=== PATIENT | male | born 1970 | race Caucasian/White ===

== ENCOUNTER 2023-02-06 09:41 | Outpatient (OUT) | payer MEDICARE, MEDICAID, SELFPAY ==
[2023-02-06 14:42] LABS: Basophils Absolute Auto 0.1 10^3/uL (0.0-0.1); Basophils Percent Auto 0.5 % (0.2-2.0); Eosinophils Absolute Auto 0.3 10^3/uL (0.0-0.7); Eosinophils Percent Auto 1.5 % (0.9-7.0); Hemoglobin 14.9 g/dL (14.0-18.0); Immature Granulocytes Abs Auto 0.07 10^3/uL (0.00-0.03); Immature Granulocytes Pct Auto 0.4 % (0.0-0.5); Lymphocytes Absolute Auto 3.4 10^3/uL (1.2-3.8); Lymphocytes Percent Auto 19.9 % (20.5-60.0); Mean Corpuscular HGB Conc 33.1 g/dL (29.9-35.2); Mean Corpuscular Hemoglobin 31.8 pg (25.9-34.0); Mean Corpuscular Volume 96.2 fL (80.0-94.0); Mean Platelet Volume 10.4 fL (9.5-13.5); Monocytes Absolute Auto 1.1 10^3/uL (0.3-0.8); Monocytes Percent Auto 6.5 % (1.7-12.0); Neutrophils Absolute Auto 12.3 10^3/uL (1.4-6.5); Neutrophils Percent Auto 71.2 % (43.0-75.0); Platelet Count 239 10^3/uL (150-450); Red Blood Count 4.68 10^6/uL (4.70-6.10); White Blood Count 17.3 10^3/uL (4.0-11.0)
[2023-02-06 15:00] LABS: Estimated Average Glucose 120 mg/dL; Glycohemoglobin A1C 5.8 % (4.5-6.2)
[2023-02-06 15:24] LABS: Anion Gap 9.9; BUN Creatinine Ratio 8.4; Calcium 9.4 mg/dL (8.5-10.1); Carbon Dioxide 28.1 mmol/L (21.0-32.0); Chloride 102 mmol/L (98-107); Estimated GFR (African America >60 (>=60); Estimated GFR (Non-African Ame 57 (>=60); Glucose 101 mg/dL (74-106); Sodium 136 mmol/L (136-145); Total Protein 7.5 g/dL (6.4-8.2)
[2023-02-06 15:35] LABS: Prostate Specific Antigen Scrn 0.43 ng/mL (<=4.00)
[2023-02-06 15:45] LABS: Alanine Aminotransferase 27 U/L (16-63); Albumin Level 3.7 g/dL (3.4-5.0); Alkaline Phosphatase 66 U/L (46-116); Aspartate Amino Transferase 18 U/L (15-37); Bilirubin Direct 0.1 mg/dL (0.0-0.2); Bilirubin Total 0.3 mg/dL (0.2-1.0); Chol HDL Ratio 7.5; Cholesterol 313 mg/dL (<=200); Globulin 3.8 g/dL; HDL Cholesterol 42 mg/dL (40-60); Triglycerides 425 mg/dL (<=150)
[2023-02-06 15:50] LABS: LDL Cholesterol Direct 192 mg/dL
[2023-02-08 05:07] LABS: HBsAg Screen Negative (Negative); HCV Ab Non Reactive (Non Reactive); HIV Ab/p24 Ag Screen Non Reactive (Non Reactive); Hep A Ab, IgM Negative (Negative); Hep B Core Ab, IgM Negative (Negative)
[2023-02-08 11:09] LABS: Rapid Plasma Reagin, Quant Non Reactive (NonRea<1:1)
[2023-02-08 22:07] LABS: Neisseria gonorrhoeae, NAA Negative (Negative)
== END 2023-02-06 09:42 | disposition home or self-care (01) ==
LOC: LAB 09:46
PROVIDERS: PCP Family Medicine; Visit Provider Family Medicine
DX: Z79.899 Other long term (current) drug therapy (principal); R73.03 Prediabetes; E78.5 Hyperlipidemia, unspecified; Z12.5 Encounter for screening for malignant neoplasm of prostate; Z20.2 Contact with and (suspected) exposure to infections with a predominantly sexual mode of transmission
CPT/HCPCS: 36415; 80048; 80061; 80074; 80076; 83036; 83721; 85025; 86592; 87389; 87491; 87591; G0103

== ENCOUNTER 2023-07-22 10:23 | Inpatient (IN) | payer MEDICARE, MEDICAID, SELFPAY ==
[2023-07-22] VITALS (26 sets, daily range): BP systolic 122–133; BP diastolic 80–83; PULSE 101–114; RESP 16–37; TEMP 36.7–36.9; O2SAT 86–98; BMI 29.9; BMI 27.1
--- NOTE | 2023-07-22 10:36 | XR_ITS ---
The [address] [address] Patient Name: MARRY ANTONIO MRN: [id number] date: 1970 Sex: M Assigned Patient Location: ER Current Patient Location: ED.MAIN Accession/Order Number: [id number] Exam Date: 07/22/2023 10:43 Report Date: 07/22/2023 11:05 At the request of: VANNA CORONA Procedure: XR chest 2V EXAM: XR chest 2V HISTORY: sob COMPARISON: Chest study dated 05/08/2021 TECHNIQUE: PA and lateral views of the chest were obtained. FINDINGS: Heart and mediastinal contours are unremarkable in appearance. Mild prominence of bronchovascular markings which can be correlated for bronchitis. Slight patchy increased density suggested in the right lower lung field on PA view, consider minimal infiltrate. No evidence of consolidation. No obvious pneumothorax. Bony structures appear grossly intact. XR/XR chest 2V IMPRESSION: Correlate for mild bronchitis. Consider possible minimal infiltrate in the right lower lung field. Electronically authenticated by: OSCAR FOURNIER Date: 07/22/2023 11:05
--- NOTE | 2023-07-22 10:36 | ECG_ITS ---
The [facility] Test Date: 2023-07-22 Pat Name: MARRY ANTONIO Department: Room: - Gender: Male [employer]: : 1970 Requested By: [id number] Order Number: [id number] Reading MD: BERNARD MATHUR Measurements Intervals [place] Rate: 106 P: 70 ND: 128 QRS: 88 QRSD: 92 T: 70 QT: 332 QTc: 394 Interpretive Statements 1120 Sinus tachycardia Non-Specific T wave inversion in aVL 9140 abnormal rhythm ECG No previous ECG available for comparison Electronically Signed On 07-23-2023 6:43:47 EST by BERNARD MATHUR
--- NOTE | 2023-07-22 11:40 | ED_ITS ---
HPI - SOB/Dyspnea General Chief Complaint: Shortness of Breath/Dyspnea Stated Complaint: SHORTNESS OF BREATH/ HEADACHE Time Seen by Provider: 07/22/23 11:40 Source: patient Mode of arrival: walk-in History of Present Illness HPI Narrative: patient here complaining of shortness of breath. It's been getting worse the last three or four days. He does have chronic obstructive pulmonary disease. Continues to smoke but was going to quit this New Year's. He has never used oxygen at home. He is not had breathing problems this bad. He is not making any sputum or mucus. He is not running a fever. He uses albuterol and a steroid inhaler but does not have a nebulizer at home and is not on any antibiotics or steroids at this time. He's not had any vomiting or diarrhea. Does not have any chest pain. Related Data Home Medications Medication Instructions Recorded Confirmed albuterol sulfate 90 mcg/actuation inhalation 07/22/23 aerosol inhaler Allergies Allergy/AdvReac Type Severity Reaction Status Date / Time pcn AdvReac Intermediate Uncoded 07/22/23 10:28 [facility] Social History Smoking status: Current every day smoker Exam Narrative Exam Narrative: awake alert borderline tachycardic. He is afebrile. Oxygen saturation is eighty- nine percent on room air. 2 L he moves up to 95-96 percent and is more comfortable. He is awake alert no confusion. He is able to complete sentences but is to Make an tachycardic. Skin is warm and dry with no pallor or diaphoresis. Lungs have marked decreased perfusion ventilation and marked wheezing and rhonchi bilaterally. Heart sounds are tachycardic. Abdomen is soft and supple. Extremities do not show evidence of peripheral edema. Constitutional Vital Signs, click to edit/add: Last Vital Signs Temp 98.5 F 07/22/23 10:29 Pulse 112 H 07/22/23 13:10 Resp 25 H 07/22/23 13:10 BP 133/83 07/22/23 10:29 Pulse Ox 89 L 07/22/23 13:46 O2 Del Method Room Air 07/22/23 13:46 O2 Flow Rate 2 07/22/23 13:46 Course Vital Signs Vital signs: Vital Signs Temperature 98.5 F 07/22/23 10:29 Pulse Rate 110 H 07/22/23 10:29 Respiratory Rate 22 07/22/23 10:29 Blood Pressure 133/83 07/22/23 10:29 Pulse Oximetry 92 L 07/22/23 10:29 Oxygen Delivery Method Room Air 07/22/23 10:29 Temperature 98.5 F 07/22/23 10:29 Pulse Rate 112 H 07/22/23 13:10 Respiratory Rate 25 H 07/22/23 13:10 Blood Pressure 133/83 07/22/23 10:29 Pulse Oximetry 89 L 07/22/23 13:46 Oxygen Delivery Method Room Air 07/22/23 13:46 Oxygen Delivery Flow Rate 2 07/22/23 13:46 MDM - SOB/Dyspnea MDM Narrative Medical decision making narrative: this patient presents with worsening shortness of breath.he is given DuoNeb, albuterol, intravenous Solu-Medrol. He maintained good oxygen saturations while on 2 L all over when we stopped the oxygen and ambulate him he desaturates to eighty-eight eighty-nine percent. His chest x-ray is suggestive of early infiltrate. We'll start him on azithromycin. I spoke with the hospitalist and I believe he'll benefit from treatment here in the hospital. Lab Data Labs: Lab Results 07/22/23 Range/Units 11:49 WBC 9.8 (4.0-11.0) 10^3/uL RBC 4.48 L (4.70-6.10) 10^6/uL Hgb 14.1 (14.0-18.0) g/dL Hct 44.2 (42.0-54.0) % MCV 98.7 H (80.0-94.0) fL MCH 31.5 (25.9-34.0) pg MCHC 31.9 (29.9-35.2) g/dL RDW 13.8 (11.0-15.0) % Plt Count 196 (150-450) 10^3/uL MPV 9.3 L (9.5-13.5) fL Neut % (Auto) 61.7 (43.0-75.0) % Lymph % (Auto) 28.5 (20.5-60.0) % [place] % (Auto) 6.8 (1.7-12.0) % Eos % (Auto) 2.2 (0.9-7.0) % Baso % (Auto) 0.6 (0.2-2.0) % Neut # (Auto) 6.0 (1.4-6.5) 10^3/uL Lymph # (Auto) 2.8 (1.2-3.8) 10^3/uL [place] # (Auto) 0.7 (0.3-0.8) 10^3/uL Eos # (Auto) 0.2 (0.0-0.7) 10^3/uL Baso # (Auto) 0.1 (0.0-0.1) 10^3/uL Abs Immat Gran (auto) 0.02 (0.00-0.03) 10^3/uL Imm/Tot Granulo (auto) 0.2 (0.0-0.5) % Sodium 142 (136-145) mmol/L Potassium 4.4 (3.5-5.1) mmol/L Chloride 104 (98-107) mmol/L Carbon Dioxide 33.1 H (21.0-32.0) mmol/L Anion Gap 9.3 BUN 11.0 (7.0-18.0) mg/dL Creatinine 1.14 (0.70-1.30) mg/dL Est GFR ( Amer) >60 (>=60) Est GFR (Non-Af Amer) >60 (>=60) BUN/Creatinine Ratio 9.6 Glucose 115 H (74-106) mg/dL Calcium 9.0 (8.5-10.1) mg/dL Total Bilirubin 0.3 (0.2-1.0) mg/dL AST 9 L (15-37) U/L ALT 20 (16-63) U/L Alkaline Phosphatase 84 (46-116) U/L Troponin I High Sens 8.2 (4.0-76.1) pg/mL Total Protein 7.6 (6.4-8.2) g/dL Albumin 3.7 (3.4-5.0) g/dL Globulin 3.9 g/dL Albumin/Globulin Ratio 0.9 SARS-CoV-2 (PCR) Negative (NEGATIVE) Influenza Type A Ag Negative Influenza Type B Ag Negative Discharge Plan Discharge Chief Complaint: Shortness of Breath/Dyspnea Clinical Impression: Acute infective exacerbation of chronic obstructive airway disease Patient Disposition: Admitted as Observation Time of Disposition Decision: 13:50 Prescriptions / Home Meds: No Action albuterol sulfate 90 mcg/actuation HFA aerosol inhaler INHALATION Referrals: Bruce José MD [Primary Care Provider] - 1 week
[2023-07-22] MEDS: METHYLPREDNISOLONE SOD SUCC PF 125 MG/2 ML VIAL IVP (11:53)
[2023-07-22] MEDS: IPRATROPIUM/ALBUTEROL SULFATE 3 ML AMPUL.NEB IH ×2 (11:55→22:26)
[2023-07-22 11:58] LABS: Basophils Absolute Auto 0.1 10^3/uL (0.0-0.1); Basophils Percent Auto 0.6 % (0.2-2.0); Eosinophils Absolute Auto 0.2 10^3/uL (0.0-0.7); Eosinophils Percent Auto 2.2 % (0.9-7.0); Hematocrit 44.2 % (42.0-54.0); Hemoglobin 14.1 g/dL (14.0-18.0); Immature Granulocytes Abs Auto 0.02 10^3/uL (0.00-0.03); Immature Granulocytes Pct Auto 0.2 % (0.0-0.5); Lymphocytes Absolute Auto 2.8 10^3/uL (1.2-3.8); Lymphocytes Percent Auto 28.5 % (20.5-60.0); Mean Corpuscular HGB Conc 31.9 g/dL (29.9-35.2); Mean Corpuscular Hemoglobin 31.5 pg (25.9-34.0); Mean Corpuscular Volume 98.7 fL (80.0-94.0); Mean Platelet Volume 9.3 fL (9.5-13.5); Monocytes Absolute Auto 0.7 10^3/uL (0.3-0.8); Monocytes Percent Auto 6.8 % (1.7-12.0); Neutrophils Percent Auto 61.7 % (43.0-75.0); Platelet Count 196 10^3/uL (150-450); Red Blood Count 4.48 10^6/uL (4.70-6.10); Red Cell Distribution Width 13.8 % (11.0-15.0); White Blood Count 9.8 10^3/uL (4.0-11.0)
[2023-07-22 12:14] LABS: Influenza Virus A Antigen Negative; Influenza Virus B Antigen Negative; Internal Control Within Normal Limits
[2023-07-22 12:16] LABS: SARS-CoV-2 Ag NEGATIVE (NEGATIVE)
[2023-07-22 12:21] LABS: Alanine Aminotransferase 20 U/L (16-63); Albumin Globulin Ratio 0.9; Albumin Level 3.7 g/dL (3.4-5.0); Alkaline Phosphatase 84 U/L (46-116); Anion Gap 9.3; Aspartate Amino Transferase 9 U/L (15-37); BUN Creatinine Ratio 9.6; Bilirubin Total 0.3 mg/dL (0.2-1.0); Carbon Dioxide 33.1 mmol/L (21.0-32.0); Chloride 104 mmol/L (98-107); Estimated GFR (African America >60 (>=60); Estimated GFR (Non-African Ame >60 (>=60); Globulin 3.9 g/dL; Glucose 115 mg/dL (74-106); Potassium 4.4 mmol/L (3.5-5.1); Sodium 142 mmol/L (136-145); Total Protein 7.6 g/dL (6.4-8.2); Troponin I High Sensitivity 8.2 pg/mL (4.0-76.1)
[2023-07-22] MEDS: ALBUTEROL SULFATE 2.5 MG IH (12:38)
[2023-07-22] MEDS: SODIUM CHLORIDE IH (12:38)
--- NOTE | 2023-07-22 13:46 | PC.NURSE ---
PT WALKED FROM ER RM 8 AROUND NURSES STATION AND BACK TO ER RM 8. 89% AFTER AMBULATION, PT PLACED ON 2L O2 AT THIS TIME
[2023-07-22] MEDS: AZITHROMYCIN 500 MG in 0.9 % SODIUM CHLORIDE 250 ML 250 MG IV ×2 (14:14→16:00)
[2023-07-22 14:38] LABS: Adenovirus NOT DETECTED (NOT DETECTE); Bordetella parapertussis NOT DETECTED (NOT DETECTE); Coronavirus 229E NOT DETECTED (NOT DETECTE); Coronavirus HKU1 NOT DETECTED (NOT DETECTE); Coronavirus NL63 NOT DETECTED (NOT DETECTE); Coronavirus OC43 NOT DETECTED (NOT DETECTE); Human Metapneumovirus NOT DETECTED (NOT DETECTE); Influenza A NOT DETECTED (NOT DETECTE); Influenza B NOT DETECTED (NOT DETECTE); Mycoplasma pneumoniae NOT DETECTED (NOT DETECTE); Parainfluenza Virus 1 NOT DETECTED (NOT DETECTE); Parainfluenza Virus 2 NOT DETECTED (NOT DETECTE); Parainfluenza Virus 3 NOT DETECTED (NOT DETECTE); Parainfluenza Virus 4 NOT DETECTED (NOT DETECTE); Respiratory Syncytial Virus NOT DETECTED (NOT DETECTE); SARS-CoV-2 NOT DETECTED (NOT DETECTE)
[2023-07-22 14:58] LABS: Magnesium 2.3 mg/dL (1.8-2.4)
[2023-07-22 15:55] LABS: SARS-CoV-2 NAA NOT DETECTED (NOT DETECTE)
[2023-07-22 15:57] LABS: Human Rhinovirus/Enterovirus DETECTED (NOT DETECTE)
[2023-07-22] MEDS: NICOTINE 14 MG PATCH.TD24 TD (16:00)
--- NOTE | 2023-07-22 16:06 | P.HP_ITS ---
H&P: HPI History of Present Illness Chief complaint: SHORTNESS OF BREATH/ HEADACHE Narrative: patient is a 52-year-old male with past medical history of tobacco abuse, has been smoking about a pack a day since the age of [age], bipolar disorder, chronic pain, insomnia, chronic obstructive pulmonary disease, hyperlipidemia. Patient reports that approximately 3-4 days ago he developed shortness of breath and coughing. He thought he would just run its course but he got to the point where he was coughing so hard he felt like he blacked out so he came to the emergency department. Even after breathing treatments, steroids patient's oxygen saturation dropped below eighty-eight percent when walking so p atient was admitted to the hospitalist service for further evaluation. Chest x- ray showed new infiltrate, consistent with a pneumonia. Influenza and [place] tests were negative. At the time of admission exam patient states that his chest feels tight and he complains of shortness of breath even at rest. No fevers or chills, and a nonproductive cough. He had planned to stop smoking for his New Year's resolution and would like to start now. He is only on a rescue inhaler for his chronic obstructive pulmonary disease, he does not see a pulmonary doctor. Review of Systems ROS Narrative ROS: a complete review of systems were reviewed with patient and are positive as below or listed in History of Chief Complaint. General: no fever, chills, night sweats Head: no headache, trauma, visual changes, nausea or vomiting Skin: no reported rashes, itching or sores Eyes: no blurriness of vision Ears: no reported hearing loss, vertigo, earache, or tinnitus Throat: no sore throat, hoarseness, swelling of neck, or tongue pain Heart: no chest pain Lungs:shortness of breath and cough GI: no diarrhea or vomiting/nausea Urinary: no urinary urgency, frequency or pain Neuro: no numbness or tingling HEM: no bleeding issues or bruising ENDO: no thyroid problems Psych: no anxiety or depression [facility] Medical History (Updated 07/22/23 @ 16:18 by Meghan Bueno DO) Insomnia ?G47.00 - Insomnia, unspecified (ICD-10) Tobacco abuse ?Z72.0 - Tobacco use (ICD-10) COPD (chronic obstructive pulmonary disease) ?J44.9 - Chronic obstructive pulmonary disease, unspecified (ICD-10) Hyperlipidemia ?E78.5 - Hyperlipidemia, unspecified (ICD-10) Bipolar 1 disorder ?F31.9 - Bipolar disorder, unspecified (ICD-10) Social History Smoking status: Current every day smoker Highest level of school completed/degree received: 11th grade Meds Home Medications and Allergies Home Medications Medication Instructions Recorded Confirmed Type albuterol sulfate 90 mcg/actuation 2 puff inhalation Q4H PRN 07/22/23 07/22/23 History aerosol inhaler shortness of breath or wheezing atorvastatin 40 mg tablet 40 mg PO BEDTIME 07/22/23 07/22/23 History baclofen 20 mg tablet 20 mg PO Q12H PRN pain 07/22/23 07/22/23 History buspirone 30 mg tablet 30 mg PO DAILY 07/22/23 07/22/23 History duloxetine 60 mg capsule,delayed 60 mg PO DAILY 07/22/23 07/22/23 History release furosemide 40 mg tablet 40 mg PO DAILY 07/22/23 07/22/23 History lamotrigine 200 mg tablet 200 mg PO BEDTIME 07/22/23 07/22/23 History pupaqxer-cgc-vwubl acid 0.4 1 tab PO Q24H 07/22/23 07/22/23 History mg-lycopene 300 mcg-lutein 250 mcg tablet (Spectravite Adult 50 Plus) nabumetone 500 mg tablet 500 mg PO BID 07/22/23 07/22/23 History risperidone 4 mg tablet 4 mg PO BEDTIME 07/22/23 07/22/23 History sildenafil 25 mg tablet 25 mg PO Q24H PRN sexual activity 07/22/23 07/22/23 History trazodone 100 mg tablet 100 mg PO BEDTIME 07/22/23 07/22/23 History Allergies Allergy/AdvReac Type Severity Reaction Status Date / Time pcn AdvReac Intermediate Uncoded 07/22/23 10:28 Exam Narrative Exam Narrative: General: Patient is alert, and oriented to person, place and time, short of breath with conversing Skin: no visible rashes, or ulcers Head: atraumatic, acephalic Eyes: PERRLA, no nystagmus present, conjunctiva clear, no scleral icterus Ears: normal gross auditory acuity Neck: no masses palpated, normal thyroid, no JVD or audible carotid bruits Heart: Normal rate and rhythm, no murmurs/rubs/gallops Lungs: audible wheezes and crackles, diminished breath sounds all lung vernon Abdomen: Normal audible bowel sounds, no distension, No palpable masses, no organomegaly, no rebound/guarding/ or rigidity Musculoskeletal: no swelling bilateral lower extremities Neuro: CN II-X grossly intact Constitutional Vital Signs, click to edit/add: Last Vital Signs Temp 98.1 F 07/22/23 14:40 Pulse 108 H 07/22/23 14:40 Resp 18 07/22/23 14:40 BP 122/80 07/22/23 14:40 Pulse Ox 91 L 07/22/23 14:52 O2 Del Method Nasal Cannula 07/22/23 14:52 O2 Flow Rate 4 07/22/23 14:52 Results Labs Labs: Short CBC 07/22/23 Range/Units 11:49 WBC 9.8 (4.0-11.0) 10^3/uL Hgb 14.1 (14.0-18.0) g/dL Hct 44.2 (42.0-54.0) % Plt Count 196 (150-450) 10^3/uL BMP 07/22/23 11:49 Sodium 142 Potassium 4.4 Chloride 104 Carbon Dioxide 33.1 H BUN 11.0 Creatinine 1.14 Glucose 115 H Calcium 9.0 Liver Function 07/22/23 Range/Units 11:49 Total Bilirubin 0.3 (0.2-1.0) mg/dL AST 9 L (15-37) U/L ALT 20 (16-63) U/L Alkaline Phosphatase 84 (46-116) U/L Albumin 3.7 (3.4-5.0) g/dL Assessment and Plan Assessment and Plan (1) Acute infective exacerbation of chronic obstructive airway disease: Assessment and Plan: due to rhinovirus, will place on DuoNeb's every 6 hours scheduled, when necessary albuterol, Solu-Medrol 40 mg every 6 hours scheduled, Rocephin and azithromycin for secondary pneumonia, and Symbicort twice a day. Will provide patient with a nicotine patch. Pulmonary consult. (2) Acute respiratory failure with hypoxia: Assessment and Plan: requiring oxygen with sats dropping <88% when walking per ER physician but i do not see any documentation. Will monitor. (3) Rhinovirus: Assessment and Plan: causing #1 (4) Community acquired pneumonia: Assessment and Plan: continue rocephin and Azithromycin Qualifiers: Laterality: right Lung location: lower lobe of lung Qualified Code(s): J18.9 - Pneumonia, unspecified organism (5) Bipolar 1 disorder: Assessment and Plan: continue home meds (6) Hyperlipidemia: Assessment and Plan: continue atorvastatin Qualifiers: Hyperlipidemia type: unspecified Qualified Code(s): E78.5 - Hyperlipidemia, unspecified (7) Tobacco abuse: Assessment and Plan: encouraged him to stop smoking, will place on nicotine patch (8) Insomnia: Assessment and Plan: continue trazodone Qualifiers: Insomnia type: primary Qualified Code(s): F51.01 - Primary insomnia Plan Patient is a full code patient is inpatient status Lovenox for DVT prophylaxis
[2023-07-22] MEDS: ENOXAPARIN SODIUM 40 MG/0.4 ML SYRINGE SUBQ (17:49)
[2023-07-22] MEDS: METHYLPREDNISOLONE SOD SUCC PF 40 MG/ML VIAL IVP (17:55)
[2023-07-22] MEDS: CEFTRIAXONE 1,000 MG in 0.9 % SODIUM CHLORIDE 50 ML 100 MG IV (17:55)
[2023-07-22] MEDS: ATORVASTATIN CALCIUM 40 MG TABLET PO (22:04)
[2023-07-22] MEDS: LAMOTRIGINE 100 MG TABLET 200 MG PO (22:04)
[2023-07-22] MEDS: TRAZODONE HCL 50 MG TABLET 100 MG PO (22:04)
[2023-07-22] MEDS: risperiDONE 1 MG TABLET 4 MG PO (22:06)
[2023-07-22] MEDS: NABUMETONE 500 MG TABLET PO (22:06)
[2023-07-22] MEDS: BUDESONIDE 0.5 MG/2 ML AMPULE NEB IH (22:26)
--- NOTE | 2023-07-22 22:52 | RESP.RT ---
placed patient on venti mask at 6L/ 35% FIO2 per patient request for comfort due to deviated septum
[2023-07-23] VITALS (17 sets, daily range): BP systolic 110–150; BP diastolic 64–80; PULSE 82–124; RESP 18–24; TEMP 36.6; O2SAT 91–93
[2023-07-23] MEDS: METHYLPREDNISOLONE SOD SUCC PF 40 MG/ML VIAL IVP ×4 (00:38→17:11)
[2023-07-23] MEDS: IPRATROPIUM/ALBUTEROL SULFATE 3 ML AMPUL.NEB IH ×4 (04:10→22:38)
[2023-07-23 05:23] LABS: Hematocrit 41.4 % (42.0-54.0); Hemoglobin 13.1 g/dL (14.0-18.0); Immature Granulocytes Abs Auto 0.08 10^3/uL (0.00-0.03); Immature Granulocytes Pct Auto 0.6 % (0.0-0.5); Lymphocytes Absolute Auto 1.8 10^3/uL (1.2-3.8); Lymphocytes Percent Auto 12.8 % (20.5-60.0); Mean Corpuscular HGB Conc 31.6 g/dL (29.9-35.2); Mean Corpuscular Hemoglobin 31.3 pg (25.9-34.0); Mean Corpuscular Volume 98.8 fL (80.0-94.0); Mean Platelet Volume 10.2 fL (9.5-13.5); Monocytes Absolute Auto 0.5 10^3/uL (0.3-0.8); Monocytes Percent Auto 3.3 % (1.7-12.0); Neutrophils Absolute Auto 11.6 10^3/uL (1.4-6.5); Neutrophils Percent Auto 83.3 % (43.0-75.0); Platelet Count 192 10^3/uL (150-450); Red Blood Count 4.19 10^6/uL (4.70-6.10); Red Cell Distribution Width 13.6 % (11.0-15.0)
[2023-07-23 05:42] LABS: Alanine Aminotransferase 17 U/L (16-63); Albumin Globulin Ratio 0.8; Albumin Level 3.1 g/dL (3.4-5.0); Alkaline Phosphatase 69 U/L (46-116); Anion Gap 10.6; Aspartate Amino Transferase 10 U/L (15-37); BUN Creatinine Ratio 14.5; Bilirubin Total 0.2 mg/dL (0.2-1.0); Carbon Dioxide 29.5 mmol/L (21.0-32.0); Chloride 104 mmol/L (98-107); Estimated GFR (African America >60 (>=60); Estimated GFR (Non-African Ame >60 (>=60); Globulin 3.8 g/dL; Glucose 222 mg/dL (74-106); Potassium 4.1 mmol/L (3.5-5.1); Sodium 140 mmol/L (136-145); Total Protein 6.9 g/dL (6.4-8.2)
[2023-07-23] MEDS: CEFTRIAXONE 1,000 MG in 0.9 % SODIUM CHLORIDE 50 ML 100 MG IV ×2 (05:47→17:11)
[2023-07-23] MEDS: NABUMETONE 500 MG TABLET PO ×2 (08:21→15:29)
[2023-07-23] MEDS: BUSPIRONE HCL 15 MG TABLET 30 MG PO ×2 (08:21→15:29)
[2023-07-23] MEDS: DULOXETINE HCL 60 MG CAPSULE.DR PO (08:21)
[2023-07-23] MEDS: FUROSEMIDE 40 MG TABLET PO (08:21)
--- NOTE | 2023-07-23 08:51 | PM.PN ---
Progress Note: Subjective Subjective Interval history: Patient sitting up in bed this morning. Says his breathing has improved. Slight shortness of breath. Nursing staff did have to place non-rebreather mask on patient last night, this morning back to [place]. Patient denies fevers or chills, no cough Exam Narrative Exam Narrative: General: Patient is alert, and oriented to person, place and time, short of breath with conversing Skin: no visible rashes, or ulcers Head: atraumatic, acephalic Eyes: PERRLA, no nystagmus present, conjunctiva clear, no scleral icterus Ears: normal gross auditory acuity Neck: no masses palpated, normal thyroid, no JVD or audible carotid bruits Heart: Normal rate and rhythm, no murmurs/rubs/gallops Lungs: audible wheezes and crackles, diminished breath sounds all lung vernon Abdomen: Normal audible bowel sounds, no distension, No palpable masses, no organomegaly, no rebound/guarding/ or rigidity Musculoskeletal: no swelling bilateral lower extremities Neuro: CN II-X grossly intact Constitutional Vital Signs, click to edit/add: Last Vital Signs Temp 97.9 F 07/23/23 05:09 Pulse 114 H 07/23/23 08:00 Resp 18 07/23/23 05:09 BP 135/67 07/23/23 05:09 Pulse Ox 91 L 07/23/23 05:09 O2 Del Method Venturi Mask 07/23/23 05:09 O2 Flow Rate 6 07/23/23 05:09 FiO2 35 07/23/23 04:10 Progress Note: Objective Labs Labs: Short CBC 07/22/23 07/23/23 Range/Units 11:49 04:33 WBC 9.8 14.0 H (4.0-11.0) 10^3/uL Hgb 14.1 13.1 L (14.0-18.0) g/dL Hct 44.2 41.4 L (42.0-54.0) % Plt Count 196 192 (150-450) 10^3/uL BMP 07/22/23 07/23/23 11:49 04:33 Sodium 142 140 Potassium 4.4 4.1 Chloride 104 104 Carbon Dioxide 33.1 H 29.5 BUN 11.0 16.0 Creatinine 1.14 1.10 Glucose 115 H 222 H Calcium 9.0 9.0 Liver Function 07/22/23 07/23/23 Range/Units 11:49 04:33 Total Bilirubin 0.3 0.2 (0.2-1.0) mg/dL AST 9 L 10 L (15-37) U/L ALT 20 17 (16-63) U/L Alkaline Phosphatase 84 69 (46-116) U/L Albumin 3.7 3.1 L (3.4-5.0) g/dL Progress Note: A&P Assessment and Plan (1) Acute infective exacerbation of chronic obstructive airway disease: Assessment and Plan: due to rhinovirus, will place on DuoNeb's every 6 hours scheduled, when necessary albuterol, Solu-Medrol 40 mg every 6 hours scheduled, Rocephin and azithromycin for secondary pneumonia, and Symbicort twice a day. Will provide patient with a nicotine patch. Pulmonary consult, appreciate input. (2) Acute respiratory failure with hypoxia: Assessment and Plan: requiring oxygen with sats dropping <88% when walking per ER physician but i do not see any documentation. Will monitor. (3) Rhinovirus: Assessment and Plan: causing #1 (4) Community acquired pneumonia: Assessment and Plan: continue rocephin and Azithromycin Qualifiers: Laterality: right Lung location: lower lobe of lung Qualified Code(s): J18.9 - Pneumonia, unspecified organism (5) Bipolar 1 disorder: (6) Hyperlipidemia: Assessment and Plan: continue atorvastatin Qualifiers: Hyperlipidemia type: unspecified Qualified Code(s): E78.5 - Hyperlipidemia, unspecified (7) Tobacco abuse: Assessment and Plan: encouraged him to stop smoking, will place on nicotine patch (8) Insomnia: Assessment and Plan: continue trazodone Qualifiers: Insomnia type: primary Qualified Code(s): F51.01 - Primary insomnia (9) Schizophrenia: Assessment and Plan: continue home meds Qualifiers: Schizophrenia type: unspecified Qualified Code(s): F20.9 - Schizophrenia, unspecified Plan Patient is a full code patient is inpatient status Lovenox for DVT prophylaxis
[2023-07-23] MEDS: AZITHROMYCIN 500 MG in 0.9 % SODIUM CHLORIDE 250 ML 250 MG IV (09:24)
--- NOTE | 2023-07-23 10:14 | P.PLCN_ITS ---
History of Present Illness History of Present Illness Consult date: 07/23/23 Requesting physician: Meghan Bueno Reason for consult: hypoxemia Chief complaint: SHORTNESS OF BREATH/ HEADACHE Narrative: 52yo male presented to [facility] ER with dyspnea. He has a history of COPD and continues to smoke, on Incruse outpatient and albuterol use 1-2 times/day with activity. He states his breathing has been doing well up until 3-4 days ago when he had more difficulty with dyspnea. Despite using his inhalers, he could not catch his breath. He came to the ER and his presentation was consistent with an acute exacerbation of COPD. He was hypoxic on room air and was placed on supplemental O2. Respiratory screen returned positive for rhinovirus. Overnight, the nurse said the patient desaturated further despite nasal cannula and a Venturi Mask was placed. He denies any known history of GILBERTO. Today, he states he feels okay, not any worse. Still has dyspnea and cough with chest tightness. Review of Systems ROS Status of ROS 10 or more systems reviewed and unremark able except as noted in history and below Constitutional Reports: fatigue Respiratory Reports: shortness of breath, cough, wheezing and chest congestion [facility] Medical History (Updated 07/22/23 @ 16:18 by Meghan Bueno, DO) Insomnia ?G47.00 - Insomnia, unspecified (ICD-10) Tobacco abuse ?Z72.0 - Tobacco use (ICD-10) COPD (chronic obstructive pulmonary disease) ?J44.9 - Chronic obstructive pulmonary disease, unspecified (ICD-10) Hyperlipidemia ?E78.5 - Hyperlipidemia, unspecified (ICD-10) Bipolar 1 disorder ?F31.9 - Bipolar disorder, unspecified (ICD-10) Surgical History (Updated 07/22/23 @ 18:17 by Shelly Galicia) H/O Spinal surgery ?Z98.890 - Other specified postprocedural states (ICD-10) Hx of inguinal hernia surgery ?Z98.890 - Other specified postprocedural states (ICD-10) ?Z87.19 - Personal history of other diseases of the digestive system (ICD-10) Family History (Updated 07/22/23 @ 18:20 by Shelly Galicia) Other Family history not known due to adoption Social History (Updated 07/22/23 @ 18:19 by Shelly Galicia) Within the past year, how often did you have a drink containing alcohol: monthly or less Smoking status: Current every day smoker 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 Known occupational exposures/hazards: Yes Known occupational exposures/hazards details: asbestos/lead paint Highest level of school completed/degree received: 11th grade Are you now , , , , never or living with a partner: living with partner In a typical week, how many times do you talk on the telephone with family, friends, or neighbors: 3 or more times per week How often do you get together with friends or relatives: 3 or more times per week Little interest or pleasure in doing things: not at all Feeling down, depressed, or hopeless: not at all Feel stressed/tense/nervous/anxious/difficulty sleeping: not at all Do you think of yourself as: straight/heterosexual Gender Identity: male Meds Home Medications and Allergies Home Medications Medication Instructions Recorded Confirmed Type albuterol sulfate 90 mcg/actuation 2 puff inhalation Q4H PRN 07/22/23 07/22/23 History aerosol inhaler shortness of breath or wheezing atorvastatin 40 mg tablet 40 mg PO BEDTIME 07/22/23 07/22/23 History baclofen 20 mg tablet 20 mg PO Q12H PRN pain 07/22/23 07/22/23 History buspirone 30 mg tablet 30 mg PO DAILY 07/22/23 07/22/23 History duloxetine 60 mg capsule,delayed 60 mg PO DAILY 07/22/23 07/22/23 History release furosemide 40 mg tablet 40 mg PO DAILY 07/22/23 07/22/23 History lamotrigine 200 mg tablet 200 mg PO BEDTIME 07/22/23 07/22/23 History coilgqop-gnq-ibwju acid 0.4 1 tab PO Q24H 07/22/23 07/22/23 History mg-lycopene 300 mcg-lutein 250 mcg tablet (Spectravite Adult 50 Plus) nabumetone 500 mg tablet 500 mg PO BID 07/22/23 07/22/23 History risperidone 4 mg tablet 4 mg PO BEDTIME 07/22/23 07/22/23 History sildenafil 25 mg tablet 25 mg PO Q24H PRN sexual activity 07/22/23 07/22/23 History trazodone 100 mg tablet 100 mg PO BEDTIME 07/22/23 07/22/23 History Allergies Allergy/AdvReac Type Severity Reaction Status Date / Time pcn AdvReac Intermediate Uncoded 07/22/23 10:28 Exam Constitutional Vital Signs, click to edit/add: Last Vital Signs Temp 97.9 F 07/23/23 05:09 Pulse 112 H 07/23/23 10:00 Resp 18 07/23/23 05:09 BP 135/67 07/23/23 05:09 Pulse Ox 91 L 07/23/23 05:09 O2 Del Method Venturi Mask 07/23/23 05:09 O2 Flow Rate 6 07/23/23 05:09 FiO2 35 07/23/23 04:10 Documenting provider has reviewed patient's vital signs: yes General appearance: cooperative HENMT Other: Wearing nasal cannula. No oral candidiasis. Mallampati III. Chest Common normals: inspection of chest normal Chest: symmetrical chest wall rise Respiratory Other: Diminished breath sounds, especially in the bases. Diffuse expiratory wheezes with forced exhalation. No rhonchi. Cardio Rhythm: regular rhythm GI Common normals: Normal to inspection, nondistended, normoactive bowel sounds present Back & Pelvis Common normals: thoracic and lumbar spine normal to inspection Extremity Common normals: no clubbing, cyanosis or edema Neuro Sensorium/orientation: awake and alert Psych Activity/motor behavior: appropriate eye contact Thought content: normal thought content Attention/concentration: attention grossly intact Memory/cognition: memory grossly intact Results Laboratory Findings Abnormal lab findings: Abnormal Labs 07/22/23 07/23/23 11:49 04:33 WBC 14.0 H RBC 4.48 L 4.19 L Hgb 13.1 L Hct 41.4 L MCV 98.7 H 98.8 H MPV 9.3 L Neut % (Auto) 83.3 H Lymph % (Auto) 12.8 L Eos % (Auto) 0.0 L Baso % (Auto) 0.0 L Neut # (Auto) 11.6 H Abs Immat Gran (auto) 0.08 H Imm/Tot Granulo (auto) 0.6 H Carbon Dioxide 33.1 H Glucose 115 H 222 H AST 9 L 10 L Albumin 3.1 L Entero/Rhino (PCR) Detected A Diagnostic Findings Chest x-ray: report reviewed Assessment and Plan Assessment and Plan (1) Acute respiratory failure with hypoxia: Assessment and Plan: 1. Acute viral pneumonia secondary to rhinovirus. Present on admission. Treatment is supportive care. Infiltrate present on initial CXR - likely associated with virus, WBC was normal on admission. Can continue with antibiotics if felt clinically warranted. 2. Acute exacerbation of COPD. Secondary to #1. Continue with steroids, bronchodilators. Never had formal PFT - can order outpatient ~1 month. On Incruse at home with 1-2 albuterol uses/day - patient states he feels controlled, but he may benefit from addition of LABA on top of LAMA. Can F/U with me outpatient. 3. Acute hypoxic respiratory failure. Secondary to #1 & #2. Not on O2 @ baseline. Still requiring oxygen at this time; desaturations @ HS - question underlying GILBERTO - can discuss PSG outpatient. 4. Leukocytosis. Suspect secondary to steroids. Not present on admission, increased today after starting steroids. Afebrile - monitor for now. 5. Tobacco abuse. Patient long-term smoker but states he wants to quit. He is using a patch. Discussed smoking cessation.
[2023-07-23] MEDS: BUDESONIDE 0.5 MG/2 ML AMPULE NEB IH ×2 (10:58→22:38)
--- NOTE | 2023-07-23 11:37 | CM.NOTE ---
Rounds made with Dr. Bueno, pt verbalizes he is feeling better today. Pt remains on oxygen, 3L NC at this time. No discharge today.
[2023-07-23] MEDS: BACLOFEN 10 MG TABLET 20 MG PO (15:29)
[2023-07-23] MEDS: DIAZEPAM 2 MG TABLET PO (15:30)
--- NOTE | 2023-07-23 16:34 | CM.NOTE ---
Important Message From Medicare discussed with pt, pt verbalizes understanding and signs paper. Original given to pt and copy placed on pt's chart.
[2023-07-23] MEDS: NICOTINE 14 MG PATCH.TD24 TD (16:42)
[2023-07-23] MEDS: ENOXAPARIN SODIUM 40 MG/0.4 ML SYRINGE SUBQ (16:42)
[2023-07-23] MEDS: LAMOTRIGINE 100 MG TABLET 200 MG PO (21:25)
[2023-07-23] MEDS: risperiDONE 1 MG TABLET 4 MG PO (21:25)
[2023-07-23] MEDS: ATORVASTATIN CALCIUM 40 MG TABLET PO (21:26)
--- NOTE | 2023-07-23 22:57 | RESP.RT ---
Took 3L nasal cannula off and placed pt on Venti Mask 6L Fi02 35% per patient request because of deviated septum
[2023-07-24] VITALS (20 sets, daily range): BP systolic 118–141; BP diastolic 68–83; PULSE 81–122; RESP 18–24; TEMP 36.6–37; O2SAT 90–96
[2023-07-24] MEDS: METHYLPREDNISOLONE SOD SUCC PF 40 MG/ML VIAL IVP ×5 (00:57→23:22)
[2023-07-24] MEDS: IPRATROPIUM/ALBUTEROL SULFATE 3 ML AMPUL.NEB IH ×4 (04:05→22:33)
--- NOTE | 2023-07-24 04:05 | RESP.RT ---
Took pt off of venti mask and placed on 3L nasal cannula
[2023-07-24 04:49] LABS: Basophils Percent Auto 0.2 % (0.2-2.0); Hematocrit 43.8 % (42.0-54.0); Hemoglobin 13.8 g/dL (14.0-18.0); Immature Granulocytes Abs Auto 0.26 10^3/uL (0.00-0.03); Immature Granulocytes Pct Auto 1.3 % (0.0-0.5); Lymphocytes Absolute Auto 1.8 10^3/uL (1.2-3.8); Lymphocytes Percent Auto 8.7 % (20.5-60.0); Mean Corpuscular HGB Conc 31.5 g/dL (29.9-35.2); Mean Corpuscular Hemoglobin 31.4 pg (25.9-34.0); Mean Corpuscular Volume 99.8 fL (80.0-94.0); Mean Platelet Volume 9.8 fL (9.5-13.5); Monocytes Absolute Auto 1.1 10^3/uL (0.3-0.8); Monocytes Percent Auto 5.1 % (1.7-12.0); Neutrophils Absolute Auto 17.4 10^3/uL (1.4-6.5); Neutrophils Percent Auto 84.7 % (43.0-75.0); Platelet Count 222 10^3/uL (150-450); Red Blood Count 4.39 10^6/uL (4.70-6.10); Red Cell Distribution Width 14.1 % (11.0-15.0); White Blood Count 20.6 10^3/uL (4.0-11.0)
[2023-07-24 05:11] LABS: Alanine Aminotransferase 18 U/L (16-63); Albumin Globulin Ratio 0.9; Albumin Level 3.4 g/dL (3.4-5.0); Alkaline Phosphatase 75 U/L (46-116); Anion Gap 11.2; Aspartate Amino Transferase 9 U/L (15-37); BUN Creatinine Ratio 18.8; Bilirubin Total 0.2 mg/dL (0.2-1.0); Calcium 9.2 mg/dL (8.5-10.1); Chloride 104 mmol/L (98-107); Estimated GFR (African America >60 (>=60); Estimated GFR (Non-African Ame 56 (>=60); Glucose 308 mg/dL (74-106); Potassium 4.2 mmol/L (3.5-5.1); Sodium 142 mmol/L (136-145); Total Protein 7.4 g/dL (6.4-8.2)
[2023-07-24] MEDS: CEFTRIAXONE 1,000 MG in 0.9 % SODIUM CHLORIDE 50 ML 100 MG IV ×2 (05:45→19:10)
--- NOTE | 2023-07-24 08:44 | PM.PN ---
Progress Note: Subjective Subjective Interval history: Patient sitting up in bed this morning. Says his breathing has improved. Slight shortness of breath. Nursing staff does have to place non-rebreather mask on patient while sleeping due to oxygen decline. Patient denies fevers or chills, no cough. No Issues or concerns today. Exam Narrative Exam Narrative: General: Patient is alert, and oriented to person, place and time, short of breath with conversing Skin: no visible rashes, or ulcers Head: atraumatic, acephalic Eyes: PERRLA, no nystagmus present, conjunctiva clear, no scleral icterus Ears: normal gross auditory acuity Neck: no masses palpated, normal thyroid, no JVD or audible carotid bruits Heart: Normal rate and rhythm, no murmurs/rubs/gallops Lungs: audible wheezes and crackles, diminished breath sounds all lung vernon Abdomen: Normal audible bowel sounds, no distension, No palpable masses, no organomegaly, no rebound/guarding/ or rigidity Musculoskeletal: no swelling bilateral lower extremities Neuro: CN II-X grossly intact Constitutional Vital Signs, click to edit/add: Last Vital Signs Temp 97.8 F 07/24/23 04:19 Pulse 122 H 07/24/23 08:00 Resp 18 07/24/23 08:00 BP 141/83 07/24/23 04:19 Pulse Ox 90 L 07/24/23 04:22 O2 Del Method Nasal Cannula 07/24/23 04:22 O2 Flow Rate 3 07/24/23 04:22 FiO2 35 07/24/23 04:05 Progress Note: Objective Labs Labs: Short CBC 07/24/23 Range/Units 04:32 WBC 20.6 H (4.0-11.0) 10^3/uL Hgb 13.8 L (14.0-18.0) g/dL Hct 43.8 (42.0-54.0) % Plt Count 222 (150-450) 10^3/uL BMP 07/24/23 04:32 Sodium 142 Potassium 4.2 Chloride 104 Carbon Dioxide 31.0 BUN 25.0 H Creatinine 1.33 H Glucose 308 H Calcium 9.2 Liver Function 07/24/23 Range/Units 04:32 Total Bilirubin 0.2 (0.2-1.0) mg/dL AST 9 L (15-37) U/L ALT 18 (16-63) U/L Alkaline Phosphatase 75 (46-116) U/L Albumin 3.4 (3.4-5.0) g/dL Progress Note: A&P Assessment and Plan (1) Acute infective exacerbation of chronic obstructive airway disease: Assessment and Plan: due to rhinovirus, will place on DuoNeb's every 6 hours scheduled, when necessary albuterol, Solu-Medrol 40 mg every 6 hours scheduled, Rocephin and azithromycin for secondary pneumonia, and Symbicort twice a day. Will provide patient with a nicotine patch. Pulmonary consult, appreciate input and follow up. (2) Acute respiratory failure with hypoxia: Assessment and Plan: requiring oxygen with sats dropping <88% (3) Rhinovirus: Assessment and Plan: causing #1 (4) Community acquired pneumonia: Assessment and Plan: continue rocephin and Azithromycin, seen on Chest X-ray, repeat today Qualifiers: Laterality: right Lung location: lower lobe of lung Qualified Code(s): J18.9 - Pneumonia, unspecified organism (5) Bipolar 1 disorder: (6) Hyperlipidemia: Assessment and Plan: continue atorvastatin Qualifiers: Hyperlipidemia type: unspecified Qualified Code(s): E78.5 - Hyperlipidemia, unspecified (7) Tobacco abuse: Assessment and Plan: encouraged him to stop smoking, will place on nicotine patch (8) Insomnia: Assessment and Plan: continue trazodone Qualifiers: Insomnia type: primary Qualified Code(s): F51.01 - Primary insomnia (9) Schizophrenia: Assessment and Plan: continue home meds Qualifiers: Schizophrenia type: unspecified Qualified Code(s): F20.9 - Schizophrenia, unspecified Plan Patient is a full code patient is inpatient status, hopeful discharge tomorrow Lovenox for DVT prophylaxis
[2023-07-24] MEDS: AZITHROMYCIN 500 MG in 0.9 % SODIUM CHLORIDE 250 ML 250 MG IV (08:54)
--- NOTE | 2023-07-24 08:59 | XR_ITS ---
The [address] [address] Patient Name: MARRY ANTONIO MRN: [id number] date: 1970 Sex: M Assigned Patient Location: [place] Current Patient Location: [place] Accession/Order Number: [id number] Exam Date: 07/24/2023 09:17 Report Date: 07/24/2023 09:53 At the request of: CHAYA CROWELL Procedure: XR chest 1V EXAM: Portable chest REASON FOR EXAM: Dyspnea and hypoxia, rhinovirus positive. TECHNIQUE: A portable frontal view of the chest was obtained. COMPARISON: 07/22/2023. FINDINGS: The lungs are well-inflated and and show hazy stranding in both bases. The heart and mediastinum are normal. There is no mass or pathologic adenopathy. Osseous structures are normal. XR/XR chest 1V IMPRESSION: Hazy stranding in both a cyst. This was not seen on the prior exam, but could be due to atelectasis or developing pneumonia. If clinical concern remains, consider further evaluation with CT. Electronically authenticated by: CLAYTON WHITAKER Date: 07/24/2023 09:53
--- NOTE | 2023-07-24 09:00 | PM.PLPN ---
Progress Note: A&P Assessment and Plan (1) Acute respiratory failure with hypoxia: Assessment and Plan: 1. Acute viral pneumonia secondary to rhinovirus. Treatment of virus is supportive care. On antibiotics for possible bacterial co-infection. Crackles now auscultated in the bases on exam. Recheck CXR today. 2. Acute exacerbation of COPD. Secondary to #1. Continue with steroids, bronchodilators. Slightly improved wheezing, but still sounds bronchospastic. Needs additional medication beyond Incruse @ discharge. 3. Acute hypoxic respiratory failure. Secondary to #1 & #2. Continues to have desaturations on RA. Discussed with patient that he may require supplemental O2 @ discharge. He expressed his wishes that he is not on O2. Concerned about compliance if he qualifies for O2. 4. Leukocytosis. Suspect secondary to steroids. Continues to increase, but it is neutrophil predominant on differential, and he is afebrile. 5. Steroid-induced hyperglycemia. Taper steroids with improving respiratory symptoms/wheezes. 6. Tobacco abuse. Smoking cessation. Subjective Subjective Interval history: Discussed with RN. Patient states I feel horrible! Upset that he may have to stay because he still requires O2. RN noted that he desaturated <86% on RA. He complains of a deviated nasal septum and feels he breathes O2 better with a mask. No significant productive cough. WBC increasing but he remains afebrile. Exam Constitutional Vital Signs, click to edit/add: Last Vital Signs Temp 97.8 F 07/24/23 04:19 Pulse 122 H 07/24/23 08:00 Resp 18 07/24/23 08:00 BP 141/83 07/24/23 04:19 Pulse Ox 90 L 07/24/23 04:22 O2 Del Method Nasal Cannula 07/24/23 04:22 O2 Flow Rate 3 07/24/23 04:22 FiO2 35 07/24/23 04:05 Documenting provider has reviewed patient's vital signs: yes Common normals: no apparent distress (sitting up in bed eating a bagel with cream cheese) HENMT Other: Wearing nasal cannula Chest Common normals: inspection of chest normal Chest: symmetrical chest wall rise Respiratory Other: Now has some faint scattered crackles in bases, R > L. Diminished breath sounds with slightly improved expiratory wheezes on forced exhalation Cardio Rate: tachycardic Rhythm: regular rhythm GI Inspection: normal to inspection Extremity Common normals: normal to inspection and no clubbing, cyanosis or edema Neuro Sensorium/orientation: awake and alert Speech: speech normal Psych Attitude: calm
[2023-07-24] MEDS: BACLOFEN 10 MG TABLET 20 MG PO ×2 (10:02→16:21)
[2023-07-24] MEDS: NABUMETONE 500 MG TABLET PO ×2 (10:02→16:22)
[2023-07-24] MEDS: BUSPIRONE HCL 15 MG TABLET 30 MG PO ×2 (10:02→16:21)
[2023-07-24] MEDS: DULOXETINE HCL 60 MG CAPSULE.DR 120 MG PO (10:03)
[2023-07-24] MEDS: FUROSEMIDE 40 MG TABLET PO (10:03)
--- NOTE | 2023-07-24 10:09 | CM.NOTE ---
Rounding with Dr. Bueno. Pt. remains on oxygen at [address] Bueno discussed possible discharge tomorrow. Will follow for needs upon discharge on 07/25.
[2023-07-24] MEDS: BUDESONIDE 0.5 MG/2 ML AMPULE NEB IH ×2 (10:13→22:33)
--- NOTE | 2023-07-24 11:24 | CM.NOTE ---
Pt continues on 3L NC, case management will follow for home oxygen discharge needs.
[2023-07-24] MEDS: NICOTINE 14 MG PATCH.TD24 TD (16:24)
[2023-07-24] MEDS: ENOXAPARIN SODIUM 40 MG/0.4 ML SYRINGE SUBQ (16:24)
[2023-07-24] MEDS: risperiDONE 1 MG TABLET 4 MG PO (21:05)
[2023-07-24] MEDS: ATORVASTATIN CALCIUM 40 MG TABLET PO (21:05)
[2023-07-24] MEDS: LAMOTRIGINE 100 MG TABLET 200 MG PO (21:05)
[2023-07-25] VITALS (14 sets, daily range): BP systolic 136; BP diastolic 75; PULSE 99–133; RESP 18–20; TEMP 37.1; O2SAT 80–95
[2023-07-25 04:39] LABS: Basophils Absolute Auto 0.1 10^3/uL (0.0-0.1); Basophils Percent Auto 0.3 % (0.2-2.0); Hematocrit 43.2 % (42.0-54.0); Hemoglobin 13.9 g/dL (14.0-18.0); Immature Granulocytes Abs Auto 0.34 10^3/uL (0.00-0.03); Immature Granulocytes Pct Auto 1.7 % (0.0-0.5); Lymphocytes Absolute Auto 1.9 10^3/uL (1.2-3.8); Lymphocytes Percent Auto 9.7 % (20.5-60.0); Mean Corpuscular HGB Conc 32.2 g/dL (29.9-35.2); Mean Corpuscular Hemoglobin 31.4 pg (25.9-34.0); Mean Corpuscular Volume 97.7 fL (80.0-94.0); Monocytes Absolute Auto 0.9 10^3/uL (0.3-0.8); Monocytes Percent Auto 4.4 % (1.7-12.0); Neutrophils Absolute Auto 16.4 10^3/uL (1.4-6.5); Neutrophils Percent Auto 83.9 % (43.0-75.0); Platelet Count 229 10^3/uL (150-450); Red Blood Count 4.42 10^6/uL (4.70-6.10); Red Cell Distribution Width 13.9 % (11.0-15.0); White Blood Count 19.6 10^3/uL (4.0-11.0)
[2023-07-25] MEDS: IPRATROPIUM/ALBUTEROL SULFATE 3 ML AMPUL.NEB IH ×2 (04:49→10:28)
[2023-07-25 04:56] LABS: Alanine Aminotransferase 22 U/L (16-63); Albumin Globulin Ratio 0.9; Albumin Level 3.4 g/dL (3.4-5.0); Alkaline Phosphatase 73 U/L (46-116); Anion Gap 15.2; Aspartate Amino Transferase 9 U/L (15-37); BUN Creatinine Ratio 20.6; Bilirubin Total 0.2 mg/dL (0.2-1.0); Calcium 8.8 mg/dL (8.5-10.1); Carbon Dioxide 28.3 mmol/L (21.0-32.0); Chloride 103 mmol/L (98-107); Estimated GFR (African America >60 (>=60); Estimated GFR (Non-African Ame >60 (>=60); Globulin 3.7 g/dL; Glucose 246 mg/dL (74-106); Potassium 4.5 mmol/L (3.5-5.1); Sodium 142 mmol/L (136-145); Total Protein 7.1 g/dL (6.4-8.2)
[2023-07-25] MEDS: METHYLPREDNISOLONE SOD SUCC PF 40 MG/ML VIAL IVP (06:00)
[2023-07-25] MEDS: CEFTRIAXONE 1,000 MG in 0.9 % SODIUM CHLORIDE 50 ML 100 MG IV (06:00)
--- NOTE | 2023-07-25 08:16 | PM.DS1 ---
DS: Providers Provider Date of admission: 07/22/23 14:30 Primary care physician: Bruce José MD Admitting clinician: Meghan Bueno Consults: 07/22/23 16:22 Consult to Pulmonology Routine Consulting Provider: Sagar Johnson Reason for consultation: COPD exacerbation/ CAP Has provider been notified: Yes Discharging clinician: Meghan Bueno DS: Diagnosis Discharge Diagnosis (1) Acute infective exacerbation of chronic obstructive airway disease: (2) Acute respiratory failure with hypoxia: (3) Rhinovirus: (4) Community acquired pneumonia: Qualifiers: Laterality: right Lung location: lower lobe of lung Qualified Code(s): J18.9 - Pneumonia, unspecified organism (5) Hyperlipidemia: Qualifiers: Hyperlipidemia type: unspecified Qualified Code(s): E78.5 - Hyperlipidemia, unspecified (6) Tobacco abuse: (7) Insomnia: Qualifiers: Insomnia type: primary Qualified Code(s): F51.01 - Primary insomnia (8) Schizophrenia: Qualifiers: Schizophrenia type: unspecified Qualified Code(s): F20.9 - Schizophrenia, unspecified DS: Summary Hospital Course Hospital Course: patient is a 52-year-old male with past medical history of tobacco abuse, has been smoking about a pack a day since the age of [age], schizophrenia disorder, chronic pain, insomnia, chronic obstructive pulmonary disease, hyperlipidemia. Patient reports that approximately 3-4 days ago he developed shortness of breath and coughing. He thought he would just run its course but he got to the point where he was coughing so hard he felt like he blacked out so he came to the emergency department. Even after breathing treatments, steroids, patient's oxygen saturation dropped below eighty-eight percent when walking so patient was admitted to the hospitalist service for further evaluation. Chest x-ray showed new infiltrate, consistent with a pneumonia. Influenza and Covid tests were negative. Respiratory culture positive for Rhinovirus. Patient was placed on DuoNeb's every 6 hours scheduled, when necessary albuterol, Solu-Medrol 40 mg every 6 hours scheduled, Rocephin and azithromycin for secondary pneumonia, and Symbicort twice a day. Nicotine patch working well and patient wishes to continue. Pulmonary consult. Chest CT, showed masses, or PE, and infectious Bronchiolitis. Patient wishes to go home today with close follow up. He reports he will be compliant with wearing oxygen as he is requiring 2L NC to after dropping <88%, he will need to wear continuous. I will continue patient on 4 more days of azithromycin, a 12 day prednisone taper, addition of symbicort, refill given on incruse, and Nicotine patches. He is to keep follow up appt to assess further need for oxygen in the coming weeks. He is to return to the ER with any worsening signs or symptoms. Status at Discharge Functional status at discharge: independent ambulation Time Spent with Patient Time attestation: Total time spent providing and/or coordinating discharge services: Time spent: greater than 30 minutes Exam Narrative Exam Narrative: General: Patient is alert, and oriented to person, place and time, short of breath with conversing Skin: no visible rashes, or ulcers Head: atraumatic, acephalic Eyes: PERRLA, no nystagmus present, conjunctiva clear, no scleral icterus Ears: normal gross auditory acuity Neck: no masses palpated, normal thyroid, no JVD or audible carotid bruits Heart: Normal rate and rhythm, no murmurs/rubs/gallops Lungs: audible wheezes and crackles, diminished breath sounds all lung vernon Abdomen: Normal audible bowel sounds, no distension, No palpable masses, no organomegaly, no rebound/guarding/ or rigidity Musculoskeletal: no swelling bilateral lower extremities Neuro: CN II-X grossly intact Constitutional Vital Signs, click to edit/add: Last Vital Signs Temp 98.8 F 07/25/23 04:13 Pulse 104 H 07/25/23 08:03 Resp 20 07/25/23 04:49 BP 136/75 07/25/23 04:13 Pulse Ox 94 L 07/25/23 04:49 O2 Del Method Venturi Mask 07/25/23 04:49 O2 Flow Rate 2 07/25/23 04:13 FiO2 28 07/25/23 04:49 DS: Data Data Completed and Pending Labs on day of discharge: Labs from last 24 hours 07/25/23 04:19 WBC 19.6 H RBC 4.42 L Hgb 13.9 L Hct 43.2 MCV 97.7 H MCH 31.4 MCHC 32.2 RDW 13.9 Plt Count 229 MPV 10.0 Neut % (Auto) 83.9 H Lymph % (Auto) 9.7 L [place] % (Auto) 4.4 Eos % (Auto) 0.0 L Baso % (Auto) 0.3 Neut # (Auto) 16.4 H Lymph # (Auto) 1.9 [place] # (Auto) 0.9 H Eos # (Auto) 0.0 Baso # (Auto) 0.1 Abs Immat Gran (auto) 0.34 H Imm/Tot Granulo (auto) 1.7 H Sodium 142 Potassium 4.5 Chloride 103 Carbon Dioxide 28.3 Anion Gap 15.2 BUN 22.0 H Creatinine 1.07 Est GFR ( Amer) >60 Est GFR (Non-Af Amer) >60 BUN/Creatinine Ratio 20.6 Glucose 246 H Calcium 8.8 Total Bilirubin 0.2 AST 9 L ALT 22 Alkaline Phosphatase 73 Total Protein 7.1 Albumin 3.4 Globulin 3.7 Albumin/Globulin Ratio 0.9 Discharge Plan Discharge Disposition: Home, Self-Care Discharge Medications: New nicotine 14 mg/24 hr Patch 24 Hour 14 mg transdermal Q24H 30 Days Qty: 30 0RF duloxetine 60 mg Capsule,Delayed Release(Dr/Ec) 120 mg PO DAILY 30 Days Qty: 60 0RF azithromycin 250 mg tablet 250 mg PO DAILY 4 Days Qty: 4 0RF prednisone 10 mg tablet 10 mg PO .take as directed 12 Days Qty: 30 0RF Rx Instructions: 40mg daily x 3 days, then 30mg daily x 3 days, then 20mg daily x 3 days, then 10mg daily x 3 days then stop. budesonide-formoterol [Symbicort] 160-4.5 mcg/actuation HFA aerosol inhaler 1 inh inhalation BID 30 Days Qty: 10.2 0RF Incruse Ellipta 62.5 mcg/actuation blister with device 1 inh inhalation DAILY 30 Days Qty: 30 0RF Continued albuterol sulfate 90 mcg/actuation HFA aerosol inhaler 2 puff INHALATION Q4H PRN (Reason: shortness of breath or wheezing) baclofen 20 mg tablet 20 mg PO Q12H Rx Instructions: TAKES AT 0900,1500 atorvastatin 40 mg tablet 40 mg PO BEDTIME buspirone 30 mg tablet 30 mg PO BID Rx Instructions: TAKES AT 0900, 1500 furosemide 40 mg tablet 40 mg PO DAILY lamotrigine 200 mg tablet 200 mg PO BEDTIME Spectravite Adult 50 Plus 0.4 mg-300 mcg- 250 mcg tablet 1 tab PO Q24H nabumetone 500 mg tablet 500 mg PO BID Rx Instructions: TAKES AT 0900,1500 risperidone 4 mg tablet 4 mg PO BEDTIME sildenafil 25 mg tablet 25 mg PO Q24H PRN (Reason: sexual activity) Discontinued duloxetine 60 mg capsule,delayed release(DR/EC) 60 mg PO DAILY Activity: wear oxygen at all times Activity Detail: wear 2L via NC continuous Diet: advance to your usual diet Forms: Portal Instructions Follow Up Appointments: - @ 2:00pm with Dr. José [phone] - @ 7:30am with Dr. Johnson (pulmonology) [facility] [phone]
--- NOTE | 2023-07-25 08:33 | CT_ITS ---
[place] [id number] Patient Name: MARRY ANTONIO MRN: [id number] date: 1970 Sex: M Assigned Patient Location: [place] Current Patient Location: Accession/Order Number: [id number] Exam Date: 07/25/2023 08:25 Report Date: 07/25/2023 08:56 At the request of: AYAN CHRISTIANSON Procedure: CT angio chest CT angio chest, 07/25/2023 8:25 AM EST INDICATION: hypoxia, shortness of breath, Cr. 1.07 COMPARISON: Radiograph of the chest 07/24/2023, 07/22/2023 TECHNIQUE: Axial images of the chest were obtained with administration of IV contrast. Multiplanar reformatted, MIP and 3D images were generated and reviewed as needed. Dose reduction techniques were achieved by using automated exposure control and/or adjustment of mA and/or kV according to patient size and/or use of iterative reconstruction technique. FINDINGS: Heart size within normal limits. RV/LV ratio normal. No pericardial effusion. No aortic aneurysm or dissection. No filling defect within the pulmonary arteries. No mediastinal, hilar or axillary lymphadenopathy by size criteria. Diffuse bronchial wall thickening with scattered areas of subsegmental atelectasis throughout the lung parenchyma. No pleural effusion or pneumothorax. Calcified splenic granuloma. Subcentimeter hypodensity left hepatic lobe, too small to characterize. No acute findings in the upper abdomen. No acute fracture. CT/CT angio chest IMPRESSION: 1. No pulmonary embolism. 2. Infectious versus inflammatory bronchiolitis Electronically authenticated by: KRYSTAL PEREZ Date: 07/25/2023 08:56
[2023-07-25] MEDS: NABUMETONE 500 MG TABLET PO (09:54)
[2023-07-25] MEDS: DULOXETINE HCL 60 MG CAPSULE.DR 120 MG PO (09:54)
[2023-07-25] MEDS: FUROSEMIDE 40 MG TABLET PO (09:55)
[2023-07-25] MEDS: BUSPIRONE HCL 15 MG TABLET 30 MG PO (09:55)
[2023-07-25] MEDS: AZITHROMYCIN 500 MG in 0.9 % SODIUM CHLORIDE 250 ML 250 MG IV (09:55)
[2023-07-25] MEDS: BACLOFEN 10 MG TABLET 20 MG PO (09:56)
--- NOTE | 2023-07-25 10:21 | PC.NURSE ---
Put Pt on 2 LPM NC pt up to 94%
[2023-07-25] MEDS: BUDESONIDE 0.5 MG/2 ML AMPULE NEB IH (10:28)
--- NOTE | 2023-07-25 10:31 | RESP.RT ---
titrated O2 down from 2 LPM to 1 LPM; New order for SpO2 >88%
--- NOTE | 2023-07-25 10:39 | CM.NOTE ---
Rounds made with fide Flores for pt to discharge to home today with home oxygen. Pt denies preference for home oxygen company. RN will do walk test and will submit clinical for home oxygen set-up.
--- NOTE | 2023-07-25 11:51 | PM.PLPN ---
Progress Note: A&P Assessment and Plan (1) Acute respiratory failure with hypoxia: Assessment and Plan: 1. Acute viral pneumonia secondary to rhinovirus. Cannot R/O bacterial co-infection, so would continue antibiotics. CTA shows no signs of lung cancer. 2. Acute exacerbation of COPD. Secondary to #1. Recommend steroid taper, add Symbicort 160/4.5, 2 puffs BID rinse after use @ discharge. Continue Incruse (which he is to be on according to outpatient notes). F/U with mt outpatient 07/31/2023 @ 07:30. 3. Acute hypoxic respiratory failure. Secondary to #1 & #2. Aepo-aw-xsyf was performed with the patient to assess need for supplemental O2. -SpO2 @ rest on room air: 86% -SpO2 @ rest on 2L/min O2: 92% -SpO2 with activity on 2L/min O2: 96% Patient voiced improvement in dyspnea symptoms with supplemental O2 use. Patient qualifies for home O2 at this time 2L/min continuous, assess for portability. He was counseled not to smoke around O2 to avoid igniting the O2 and cause a fire or blow up his dwelling, hurting himself and/or others. He voiced he is done smoking. 4. Leukocytosis. Suspect secondary to steroids. 5. Steroid-induced hyperglycemia. 6. Tobacco abuse. Smoking cessation discussed again! 7. Lluvia tropicalis. Contaminant vs. colonization in sputum. This is not clinically significant and is not the cause of any of his pulmonary issues. Plan Patient is acceptable for discharge from pulmonary standpoint with the above recommendations. Subjective Subjective Interval history: He states he feels a little better this morning. He REALLY wants to go home. Discussed need for home O2 at this time; he voiced he would wear it. Repeated CXR yesterday - suggestion of infiltrate. Chest CTA ordered - no pulmonary emboli, inflamed bronchi noted. No evidence of lung cancer. Exam Constitutional Vital Signs, click to edit/add: Last Vital Signs Temp 98.8 F 07/25/23 04:13 Pulse 110 H 07/25/23 10:04 Resp 20 07/25/23 04:49 BP 136/75 07/25/23 04:13 Pulse Ox 94 L 07/25/23 10:30 O2 Del Method Nasal Cannula 07/25/23 10:30 O2 Flow Rate 2 07/25/23 10:30 FiO2 28 07/25/23 04:49 Common normals: no apparent distress HENMT Other: Wearing nasal cannula. No oral candidiasis Chest Common normals: inspection of chest normal Chest: symmetrical chest wall rise Respiratory Other: Slightly more air movement this morning accompanied by mild expiratory wheezes, decreased RLL crackles. Cardio Rate: tachycardic Rhythm: regular rhythm GI Inspection: normal to inspection Back & Pelvis Common normals: thoracic and lumbar spine normal to inspection Extremity Common normals: no clubbing, cyanosis or edema Neuro Sensorium/orientation: awake and alert Speech: speech normal Psych Appearance: grossly normal Attitude: calm Speech: normal speech
--- NOTE | 2023-07-25 12:25 | CM.NOTE ---
Faxed clinical to [facility] for new referral.
--- NOTE | 2023-07-25 13:32 | CM.NOTE ---
Updated on home oxygen and [facility] has accepted the referral. Pt given number to contact [facility] as soon as he arrives to his home and they will come out to set-up oxygen. Pt verbalizes understanding.
== END 2023-07-25 15:56 | disposition home or self-care (01) | DRG 193 ==
LOC: ER 13:50 → MS 14:26
PROVIDERS: Admitting Provider Family Medicine; Emergency Provider Emergency Medicine Emergency Medical Services; PCP Family Medicine; Visit Provider Family Medicine
DX: J12.89 Other viral pneumonia (principal); J96.01 Acute respiratory failure with hypoxia; J44.1 Chronic obstructive pulmonary disease with (acute) exacerbation; J44.0 Chronic obstructive pulmonary disease with (acute) lower respiratory infection; B97.89 Other viral agents as the cause of diseases classified elsewhere; F31.9 Bipolar disorder, unspecified; E78.5 Hyperlipidemia, unspecified; F17.210 Nicotine dependence, cigarettes, uncomplicated; G47.00 Insomnia, unspecified; F20.9 Schizophrenia, unspecified; D72.829 Elevated white blood cell count, unspecified; R73.9 Hyperglycemia, unspecified; T38.0X5A Adverse effect of glucocorticoids and synthetic analogues, initial encounter; G89.29 Other chronic pain; Z20.822 Contact with and (suspected) exposure to COVID-19; Z99.81 Dependence on supplemental oxygen; Z79.899 Other long term (current) drug therapy
CPT/HCPCS: 0202U; 36415; 71045; 71046; 71275; 80053; 83735; 84484; 85025; 87070; 87106; 87205; 87635; 87798; 87804; 87811; 93005; 94640; 94667; 94668; 94761; 96365; 96366; 96367; 96372; 96376; 99285; J0456; J2920; J2930; Q9967

== ENCOUNTER 2023-09-18 12:29 | Outpatient (OUT) | payer MEDICARE, MEDICAID, SELFPAY ==
--- OUTSIDE RECORDS SUMMARY | 2023-09-18 12:32 | XMS_ITS | CCD ---
Author Name Unknown Address [address] [place] [address] Organization [facility] Care Team Providers Care Operating Room Aide Name Role Phone NADYAHIR, DR MARGIE Rosado Primary Care Unavailable MARYAM, KAROLYN Admitting Unavailable KAROLYN FRANCISCO Attending Unavailable OXANA, DR GENNARO Natarajan Consulting Unavailable JESSENIA CORBETT Consulting Unavailable KAROLYN FRANCISCO Consulting Unavailable ELOISE, DR MARGIE Rosado Admitting Unavailable NADYAHIR, DR MARGIE Rosado Attending Unavailable NADERER, DR MARGIE Rosado Primary Care Unavailable NADERER, DR MARGIE Rosado Consulting Unavailable FAWMAGALY, H Admitting Unavailable FAWINSTON, H Attending Unavailable NADYAHIR, DR MARGIE Rosado Primary Care Unavailable CRYSTAL, DR RICCARDO Natarajan Consulting Unavailable FAWMAGALY, H Consulting Unavailable NADERER, DR MARGIE Rosado Admitting Unavailable NADERER, DR MARGIE Rosado Attending Unavailable NADERER, DR MARGIE Rosado Primary Care Unavailable ZIALON, DR RICCARDO Natarajan Consulting Unavailable NADERER, DR MARGIE Rosado Consulting Unavailable FAWWAWilson, RICE H Admitting Unavailable FAWMAGALY, RICE H Attending Unavailable NADERER, DR MARGIE Rosado Primary Care Unavailable FAWWAWilson, RICE H Admitting Unavailable FAWMAGALY, H Attending Unavailable NADERER, DR MARGIE Rosado Primary Care Unavailable NADERER, DR MARGIE Rosado Primary Care Unavailable KAROLYN FRANCISCO Admitting Unavailable KAROLYN FRANCISCO Attending Unavailable KAROLYN FRANCISCO Consulting Unavailable ELOISE, DR MARGIE Rosado Primary Care Unavailable OXANA, DR GENNARO Natarajan Admitting Unavailable OXANA, DR GENNARO Natarajan Attending Unavailable OXANA, DR GENNARO Natarajan Consulting Unavailable BRANDI MEDINA Consulting Unavailable RAIMUNDO SAHA Primary Care Unavailable SYSTEM, PROVIDER NOT IN Admitting Unavaila Aldo Foss Attending Unavailab le Shalini, Aldo Admitting Unavailab le NON STAFF Primary Care Unavailable Allergies Allergy Classification Reported Allergen(s) Allergy Type Date of Onset Reaction(s) Facility (1 source) Penicillins Drug allergy (disorder) 10-12-2014 [facility] Repository Problems Active Problems Problem Classification Problem Date Documented Date Episodic/Chronic Anxiety disorders (1 source) Anxiety disorder, unspecified; Translations: [ANXIETY DISORDER UNSPECIFIED] Onset: 05-10-2021 Chronic Chronic obstructive pulmonary disease and bronchiectasis (1 source) Chronic obstructive pulmonary disease, unspecified; Translations: [COPD UNSPECIFIED] Onset: 07-21-2021 Chronic Disorders of lipid metabolism (5 sources) Hyperlipidemia, unspecified; Translations: [HYPERLIPIDEMIA UNSPECIFIED] Onset: 04-10-2021 Chronic E Codes: Natural/environment (1 source) Overexertion from prolonged static or awkward postures, initial encounter; Translations: [OVEREXERT PROLNG STAT/AWK PST INIT] Onset: 02-06-2022 Episodic Other aftercare (3 sources) Other chcf (current) drug therapy; Translations: [OTH MCFP CURRENT DRUG THERAPY] Onset: 07-21-2021 Episodic Other nervous system disorders (1 source) Other chronic pain; Translations: [OTHER CHRONIC PAIN] Onset: 07-21-2021 Chronic Pathological fracture (1 source) Personal history of (healed) other pathological fracture; Translations: [PERS HX HEALED OTH PATHOLOGICAL FX] Onset: 02-06-2022 Episodic Schizophrenia and other psychotic disorders (1 source) Schizophrenia, unspecified; Translations: [SCHIZOPHRENIA UNSPECIFIED] Onset: 05-10-2021 Chronic Spondylosis; intervertebral disc disorders; other back problems (5 sources) Other intervertebral disc degeneration, lumbar region; Translations: [OTH IV DISC DEGEN LUMBAR REGION] Onset: 09-28-2021 Chronic Spondylosis; intervertebral disc disorders; other back problems (4 sources) Dorsalgia, unspecified; Translations: [Muscle spasm of back] Onset: 07-21-2021 Episodic Sprains and strains (1 source) Strain of muscle, fascia and tendon of lower back, initial encounter; Translations: [STRAIN MUSC FASC TENDON LW BACK INT] Onset: 02-06-2022 Episodic Substance-related disorders (1 source) Nicotine dependence, cigarettes, uncomplicated; Translations: [NICOTINE DEPEND CIGARETTES UNCOMP] Onset: 05-10-2021 Chronic Unclassified (3 sources) LOW BACK PAIN, UNSPECIFIED; Translations: [LOW BACK PAIN, UNSPECIFIED] Onset: 08-15-2021 Unclassified (1 source) CONTACT W/AND (SUSP) EXPOS COVID-19; Translations: [CONTACT W/AND (SUSP) EXPOS COVID-19] Onset: 05-10-2021 Past or Other Problems Problem Classification Problem Date Documented Da te Episodic/Chronic Nonspecific chest pain (4 sources) Chest pain, unspecified; Translations: [CHEST PAIN UNSPECIFIED] Onset: 05-08-2021 Episodic Other screening for suspected conditions (not mental disorders or infectious disease) (1 source) Encounter for screening for malignant neoplasm of prostate; Translations: [ENC SCREEN MALIG NEOPLASM PROSTATE] Onset: 04-25-2021 Episodic Substance-related disorders (1 source) Cannabis use, unspecified, uncomplicated; Translations: [CANNABIS USE UNS UNCOMPLICATED] Onset: 05-10-2021 Episodic Unclassified (1 source) LOW BACK PAIN, UNSPECIFIED; Translations: [LOW BACK PAIN, UNSPECIFIED] Onset: 08-13-2021 Results Test Name Value Interpretation Reference Range Facility CBC AUTO DIFFon 02-03-2022 BASO # 0.1 103/ul Normal 0.0-0.1 [facility] Comment on above: Performed By: #### C BC #### [facility] [address] [place] [address] Dr. Mike Lynn Basophils/100 WBC (Bld) 0.4 % Normal 0.2-2.0 [facility] Comment on above: Performed By: #### C BC #### [facility] [address] [place] [address] Dr. Mike Lynn EO # 0.2 103/ul Normal 0.0-0.7 [facility] Comment on above: Performed By: #### C BC #### [facility] [address] [place] [address] Dr. Mike Lynn Eosinophils/100 WBC (Bld) 1.8 % Normal 0.9-7.0 [facility] Comment on above: Performed By: #### C BC #### [facility] [address] [place] [address] Dr. Mike Lynn Erythrocyte distribution width (RBC) [Ratio] 12.7 % Normal 11.0-15.0 [facility] Comment on above: Performed By: #### C BC #### [facility] [address] [place] [address] Dr. Mike Lynn Hematocrit (Bld) [Volume fraction] 42.9 % Normal 42.0-54.0 [facility] Comment on above: Performed By: #### C BC #### [facility] [address] [place] [address] Dr. Mike Lynn Hemoglobin (Bld) [Mass/Vol] 14.5 g/dL Normal 14.0-18.0 [facility] Comment on above: Performed By: #### C BC #### [facility] [address] [place] [address] Dr. Mike Lynn IG # 0.03 10e3/ul Normal 0.00-0.03 [facility] Comment on above: Performed By: #### C BC #### [facility] [address] [place] [address] Dr. Mike Lynn IG % 0.3 % Normal 0.0-0.5 [facility] Comment on above: Performed By: #### C BC #### [facility] [address] [place] [address] Dr. Mike Lynn LYMPH # 3.5 103/ul Normal 1.2-3.8 [facility] Comment on above: Performed By: #### C BC #### [facility] [address] [place] [address] Dr. Mike Lynn Lymphocytes/100 WBC (Bld) 29.6 % Normal 20.5-60.0 [facility] Comment on above: Performed By: #### C BC #### [facility] [address] [place] [address] Dr. Mike Lynn MANUAL DIFF REQ NO Normal [facility] Comment on above: Performed By: #### C BC #### [facility] [address] [place] [address] Dr. Mike Lynn MCH (RBC) [Entitic mass] 31.9 pg Normal 25.9-34.0 [facility] Comment on above: Performed By: #### C BC #### [facility] [address] [address] [address] Mike Lynn MCHC (RBC) [Mass/Vol] 33.8 g/dL Normal 29.9-35.2 [facility] Comment on above: Performed By: #### C BC #### [facility] [address] [address] [address] Mike Lynn MCV (RBC) [Entitic vol] 94.3 fL Critically high 80.0-94.0 [facility] Comment on above: Performed By: #### C BC #### [facility] [address] [address] [address] Mike Lynn MONO # 0.9 103/ul Critically high 0.3-0.8 [facility] Comment on above: Performed By: #### C BC #### [facility] [address] [address] [address] Mike Lynn Monocytes/100 WBC (Bld) 7.8 % Normal 1.7-12.0 [facility] Comment on above: Performed By: #### C BC #### [facility] [address] [place] [address] Dr. Mike Lynn NEUT # 7.2 103/ul Critically high 1.4-6.5 [facility] Comment on above: Performed By: #### C BC #### [facility] [address] [address] [address] Mike Lynn Neutrophils/100 WBC (Bld) 60.1 % Normal 43.0-75.0 [facility] Comment on above: Performed By: #### C BC #### [facility] [address] [address] [address] Mike Lynn Platelet mean volume (Bld) [Entitic vol] 9.3 fL Critically low 9.5-13.5 [facility] Comment on above: Performed By: #### C BC #### [facility] [address] [address] [address] Mike Lynn PLT 218 103/ul Normal 150-450 [facility] Comment on above: Performed By: #### C BC #### [facility] [address] [place], [place] [address] Dr. Mike Lynn RBC 4.55 106/ul Critically low 4.70-6.10 [facility] Comment on above: Performed By: #### C BC #### [facility] [address] [place], [place] [address] Dr. Mike Lynn WBC 11.9 103/ul Critically high 4.0-11.0 [facility] Comment on above: Performed By: #### C BC #### [facility] [address] [place], [place] [address] LSPINE WO CONon CT LSPINE WO CON EXAM: CT LSPINE WO C ON HISTORY: DORSALGIA, UNSPECIFIED COMPARISON: Correlation is made with MRI lumbar spine examination dated 09/28/2021. TECHNIQUE: Noncontrast axial CT images through the lumbar spine were obtained with coronal and sagittal reformats. Dose reduction techniques were achieved by using automated exposure control and/or adjustment of mA and/or kV according to patient size and/or use of iterative reconstruction technique. FINDINGS: There are 5 lumbar type vertebral bodies. A vertebroplasty is noted at L2. There is a stable Schmorl's node involving the superior endplate of L5. No acute fracture or subluxation is seen. The vertebral body heights are otherwise preserved. The vertebral elements are in anatomic alignment. The disc spaces are preserved. There are scattered degenerative changes including endplate osteophytes and degenerative facet arthropathy. There is mild bilateral neural foraminal narrowing at L4-L5 secondary to a mild diffuse disc bulge. There does not appear to be any significant spinal canal stenosis. There is colonic diverticulosis without evidence of acute inflammation. There is mild to moderate atherosclerotic disease. A horseshoe kidney is noted. IMPRESSION: 1. Mild scattered degenerative changes with no acute abnormality of the lumbar spine seen. 2. A vertebroplasty at L2 is noted. Electronically authenticated by: Marcy MEDINA Date: 2022-02-03 00:41 Normal [facility] PROF 14(COMP METB)on 022 Albumin [Mass/Vol] 3.5 g/dL Normal 3.4-5.0 [facility] Comment on above: Performed By: #### C MP #### [facility] [address] [address] [address] Mike Lynn Albumin/Globulin [Mass ratio] 1.1 {ratio} Normal [facility] Comment on above: Performed By: #### C MP #### [facility] [address] [address] [address] Mike Lynn ALP [Catalytic activity/Vol] 65 U/L Normal 46-116 [facility] Comment on above: Performed By: #### C MP #### [facility] [address] [place] [address] Dr. Mike Lynn ALT [Catalytic activity/Vol] 20 U/L Normal 16-63 [facility] Comment on above: Performed By: #### C MP #### [facility] [address] [place] [address] Dr. Mike Lynn Anion gap [Moles/Vol] 11.1 mmol/L Normal [facility] Comment on above: Performed By: #### C MP #### [facility] [address] [place] [address] Dr. Mike Lynn AST [Catalytic activity/Vol] 12 U/L Critically low 15-37 [facility] Comment on above: Performed By: #### C MP #### [facility] [address] [place] [address] Dr. Mike Lynn Bilirubin [Mass/Vol] 0.3 mg/dL Normal 0.2-1.0 [facility] Comment on above: Performed By: #### C MP #### [facility] [address] [place] [address] Dr. Mike Lynn Calcium [Mass/Vol] 8.9 mg/dL Normal 8.5-10.1 [facility] Comment on above: Performed By: #### C MP #### [facility] [address] [place] [address] Dr. Mike Lynn Chloride [Moles/Vol] 104 mmol/L Normal 98-107 [facility] Comment on above: Performed By: #### C MP #### [facility] [address] [address] [address] Mike Lynn CO2 [Moles/Vol] 31.3 mmol/L Normal 21.0-32.0 [facility] Comment on above: Performed By: #### C MP #### [facility] [address] [address] [address] Mike Lynn Creatinine [Mass/Vol] 1.49 mg/dL Critically high 0.70-1.30 [facility] Comment on above: Performed By: #### C MP #### [facility] [address] [address] [address] Mike Lynn EGFR-[place] 60 mL/min/1.73m2 Normal >=60 [facility] Comment on above: Performed By: #### C MP #### [facility] [address] [address] [address] Mike Lynn EGFR-NON AF [place]IZ[place] 50 mL/min/1.73m2 Critically low >=60 [facility] Comment on above: Performed By: #### C MP #### [facility] [address] [address] [address] Mike Lynn Globulin (S) [Mass/Vol] 3.3 g/dL Normal [facility] Comment on above: Performed By: #### C MP #### [facility] [address] [address] [address] Mike Lynn Glucose [Mass/Vol] 115 mg/dL Critically high 74-106 [facility] Comment on above: Performed By: #### C MP #### [facility] [address] [address] [address] Mike Lynn Potassium [Moles/Vol] 3.4 mmol/L Critically low 3.5-5.1 [facility] Comment on above: Performed By: #### C MP #### [facility] [address] [address] [address] Mike Lynn Protein [Mass/Vol] 6.8 g/dL Normal 6.4-8.2 [facility] Comment on above: Performed By: #### C MP #### [facility] [address] [place], [place] [address] Dr. Mike Lynn Sodium [Moles/Vol] 143 mmol/L Normal 136-145 [facility] Comment on above: Performed By: #### C MP #### [facility] [address] [address] [address] Mike Lynn Urea nitrogen [Mass/Vol] 9.0 mg/dL Normal 7.0-18.0 [facility] Comment on above: Performed By: #### C MP #### [facility] [address] [address] [address] Mike Lynn Urea nitrogen/Creatinine [Mass ratio] 6.0 mg/mg Normal [facility] Comment on above: Performed By: #### C MP #### [facility] [address] [address] [address] Mike Lynn MRI LSPINE WO CONon 09-28-19 MRI LSPINE WO CON EXAMINATION: MRI LSPINE WO CON HISTORY: Degeneration of lumbar intervertebral disc ; chronic lumbar pain and left-sided weakness COMPARISON: MRI lumbar spine 12/13/2017 TECHNIQUE: A variety of imaging planes and parameters were utilized for visualization of suspected pathology. FINDINGS: For the purposes of numbering, sagittal T2 image # 8 extends from the T11-T12 vertebral body superiorly to the S2 level inferiorly. PARASPINAL AREA: Developmental variant horseshoe kidney. BONES: Mild anterior wedging and prior vertebroplasty at L2. No acute fracture, spondylolisthesis, bone lesion. CORD/CAUDA EQUINA: Normal caliber, contour, and signal intensity. DISC LEVELS: 12-L1: No significant disc/facet abnormality, spinal stenosis, or foraminal stenosis. L1-L2: No significant disc/facet abnormality, spinal stenosis, or foraminal stenosis. L2-L3: No significant disc/facet abnormality, spinal stenosis, or foraminal stenosis. L3-L4: No significant disc/facet abnormality, spinal stenosis, or foraminal stenosis. L4-L5: Mild central canal and moderate bilateral foramen narrowing. Mild diffuse disc bulging with mild disc height reduction posteriorly. Mild degenerative facet arthropathy bilaterally. L5-S1: No significant disc/facet abnormality, spinal stenosis, or foraminal stenosis. IMPRESSION: 1. Remote mild compression fracture of L2 and prior vertebroplasty. No appreciable change. 2. L4-L5 moderate narrowing of the foramen bilaterally secondary to mild diffuse disc bulging and mild degenerative facet arthropathy. 3. Incidental, developmental variant horseshoe kidney. Electronically authenticated by: RICCARDO ROJAS Date: 2021-09-28 15:57 Normal [facility] XR LSPINE 2_3 VIEWSon 2020 XR LSPINE 2_3 VIEWS EXAMINATION: XR LSPI NE 2_3 VIEWS HISTORY: Low back pain ; lumbar surgery 5 years ago; acute pain since lifting heavy object 5 days ago COMPARISON: XR lumbar spine 12/14/2018 FINDINGS: BONES: Prior mild compression fracture of L2 and prior vertebroplasty. No acute fracture or significant spondylolisthesis. Mild degenerative facet arthropathy L4-5, L5-S1. DISC SPACES: No significant disc height narrowing, subluxation, or endplate abnormality. PARASPINOUS: Moderate atherosclerotic disease of aorta. OTHER: Negative. IMPRESSION: 1. No appreciable acute abnormality. 2. Remote L2 mild compression fracture and vertebroplasty. 3. Minimal degenerative changes of lower lumbar spine. Electronically authenticated by: RICCARDO ROJAS Date: 2021-07-25 10:20 Normal [facility] BNPon 05-08-2021 Natriuretic peptide B (Bld) [Mass/Vol] 127.0 pg/mL Normal <=900.0 [facility] Comment on above: Performed By: #### C MP, BNP, HSTROPN #### [facility] [address] [place] [address] Dr. Mike Lynn CBC AUTO DIFFon 05-08-2021 BASO # 0.1 103/ul Normal 0.0-0.1 [facility] Comment on above: Performed By: #### E RUR #### [facility] [address] [address] [address] Mike Lynn Basophils/100 WBC (Bld) 0.4 % Normal 0.2-2.0 [facility] Comment on above: Performed By: #### E RUR #### [facility] [address] [place] [address] Dr. Mike Lynn EO # 0.0 103/ul Normal 0.0-0.7 [facility] Comment on above: Performed By: #### E RUR #### [facility] [address] [address] [address] Miek Lynn Eosinophils/100 WBC (Bld) 0.2 % Critically low 0.9-7.0 [facility] Comment on above: Performed By: #### E RUR #### [facility] [address] [place] [address] Dr. Mike Lynn Erythrocyte distribution width (RBC) [Ratio] 12.7 % Normal 11.0-15.0 [facility] Comment on above: Performed By: #### E RUR #### [facility] [address] [place] [address] Dr. Mike Lynn Hematocrit (Bld) [Volume fraction] 45.0 % Normal 42.0-54.0 [facility] Comment on above: Performed By: #### E RUR #### [facility] [address] [place] [address] Dr. Mike Lynn Hemoglobin (Bld) [Mass/Vol] 15.3 g/dL Normal 14.0-18.0 [facility] Comment on above: Performed By: #### E RUR #### [facility] [address] [place] [address] Dr. Mike Lynn IG # 0.10 10e3/ul Critically high 0.00-0.03 [facility] Comment on above: Performed By: #### E RUR #### [facility] [address] [place] [address] Dr. Mike Lynn IG % 0.5 % Normal 0.0-0.5 [facility] Comment on above: Performed By: #### E RUR #### [facility] [address] [place] [address] Dr. Mike Lynn LYMPH # 5.2 103/ul Critically high 1.2-3.8 [facility] Comment on above: Performed By: #### E RUR #### [facility] [address] [place] [address] Dr. Mike Lynn Lymphocytes/100 WBC (Bld) 26.4 % Normal 20.5-60.0 [facility] Comment on above: Performed By: #### E RUR #### [facility] [address] [place] [address] Dr. Mike Lynn MANUAL DIFF REQ NO Normal [facility] Comment on above: Performed By: #### E RUR #### [facility] [address] [place] [address] Dr. Mike Lynn MCH (RBC) [Entitic mass] 31.2 pg Normal 25.9-34.0 [facility] Comment on above: Performed By: #### E RUR #### [facility] [address] [place] [address] Dr. Mike Lynn MCHC (RBC) [Mass/Vol] 34.0 g/dL Normal 29.9-35.2 [facility] Comment on above: Performed By: #### E RUR #### [facility] [address] [place] [address] Dr. Mike Lynn MCV (RBC) [Entitic vol] 91.8 fL Normal 80.0-94.0 [facility] Comment on above: Performed By: #### E RUR #### [facility] [address] [place] [address] Dr. Mike Lynn MONO # 1.4 103/ul Critically high 0.3-0.8 [facility] Comment on above: Performed By: #### E RUR #### [facility] [address] [place] [address] Dr. Mike Lynn Monocytes/100 WBC (Bld) 7.0 % Normal 1.7-12.0 [facility] Comment on above: Performed By: #### E RUR #### [facility] [address] [place] [address] Dr. Mike Lynn NEUT # 12.9 103/ul Critically high 1.4-6.5 [facility] Comment on above: Performed By: #### E RUR #### [facility] [address] [place] [address] Dr. Mike Lynn Neutrophils/100 WBC (Bld) 65.5 % Normal 43.0-75.0 [facility] Comment on above: Performed By: #### E RUR #### [facility] [address] [address] [address] Mike Lynn Platelet mean volume (Bld) [Entitic vol] 9.9 fL Normal 9.5-13.5 [facility] Comment on above: Performed By: #### E RUR #### [facility] [address] [address] [address] Mike Lynn PLT 244 103/ul Normal 150-450 [facility] Comment on above: Performed By: #### E RUR #### [facility] [address] [address] [address] Mike Lynn RBC 4.90 106/ul Normal 4.70-6.10 [facility] Comment on above: Performed By: #### E RUR #### [facility] [address] [address] [address] Mike Lynn WBC 19.7 103/ul Critically high 4.0-11.0 [facility] Comment on above: Performed By: #### E RUR #### [facility] [address] [address] [address] Mike Lynn Covid-19 PCR ([facility])on 04-13 SARS-CoV-2 (COVID-19) RNA MECHE+probe Ql (Unsp spec) Not detected Normal NOT DETECTED [facility] Comment on above: Result Comment: This test is not yet approved or cleared by the [place] FDA. When there are no FDA-approved or cleared tests available, and other criteria are met, FDA can make tests available under an emergency access mechanism called an Emergency Use Authorization (EUA). The EUA for this test is supported by the [place] of Health and Human Service's (HHS's) declaration that circumstances exist to justify the emergency use of in vitro diagnostics for the detection and/or diagnosis of the virus that causes COVID-19. This EUA will remain in effect (meaning this test can be used) for the duration of the COVID-19 declaration justifying emergency of IVDs, unless it is terminated or revoked by FDA (after which the test may no longer be used). When diagnostic testing is negative, the possibility of a false negative should be considered in the context of a patient's recent exposures and the presence of clinical signs and symptoms consistent with SARS-CoV-2. Performed By: #### E RUR #### [facility] [address] [place] [address] Dr. Mike Lynn ER URINE PROFILEon 1 Bilirubin Ql (U) Negative Normal NEGATIVE [facility] Comment on above: Performed By: #### E RUR #### [facility] [address] [place] [address] Dr. Mike Lynn Clarity (U) CLEAR Normal CLEAR [facility] Comment on above: Performed By: #### E RUR #### [facility] [address] [place] [address] Dr. Mike Lynn Color (U) YELLOW Normal YELLOW [facility] Comment on above: Performed By: #### E RUR #### [facility] [address] [place] [address] Dr. Mike Lynn ERUAHD A micrscopic examination will be performed if indicated. Normal [facility] Comment on above: Performed By: #### E RUR #### [facility] [address] [place] [address] Dr. Mike Lynn Glucose Ql (U) Negative Normal NEGATIVE [facility] Comment on above: Performed By: #### E RUR #### [facility] [address] [place] [address] Dr. Mike Lynn Hemoglobin Ql (U) Negative Normal NEGATIVE The [facility] Comment on above: Performed By: #### E RUR #### [facility] [address] [place] [address] Dr. Mike Lynn Ketones Ql (U) TRACE Abnormal NEGATIVE [facility] Comment on above: Performed By: #### E RUR #### [facility] [address] [place] [address] Dr. Mike Lynn LEUKOCYTES Negative Normal NEGATIVE [facility] Comment on above: Performed By: #### E RUR #### [facility] [address] [place] [address] Dr. Mike Lynn Nitrite Ql (U) Negative Normal NEGATIVE [facility] Comment on above: Performed By: #### E RUR #### [facility] [address] [place] [address] Dr. Mike Lynn pH (U) 7.5 [pH] Normal 5-9 [facility] Comment on above: Performed By: #### E RUR #### [facility] [address] [place] [address] Dr. Mike Lynn SPEC GRAVITY 1.020 Normal 1.005-<=1.025 [facility] Comment on above: Performed By: #### E RUR #### [facility] [address] [place] [address] Dr. Mike Lynn UA PROTEIN Negative Normal NEGATIVE/ TRACE [facility] Comment on above: Performed By: #### E RUR #### [facility] [address] [place] [address] Dr. Mike Lynn UR MICRO IND NOT INDICATED Normal [facility] Comment on above: Performed By: #### E RUR #### [facility] [address] [place] [address] Dr. Mike Lynn Urobilinogen Qn (U) 0.2 {Gonzalo'U}/dL Normal 0.2 - 1. 0 [facility] Comment on above: Performed By: #### E RUR #### [facility] [address] [place] [address] Dr. Mike Lynn PROF 14(COMP METB)on 021 Albumin [Mass/Vol] 4.1 g/dL Normal 3.5-5.0 [facility] Comment on above: Performed By: #### C MP, BNP, HSTROPN #### [facility] [address] [place] [address] Dr. Mike Lynn Albumin/Globulin [Mass ratio] 1.1 {ratio} Normal [facility] Comment on above: Performed By: #### C MP, BNP, HSTROPN #### [facility] [address] [place] [address] Dr. Mike Lynn ALP [Catalytic activity/Vol] 75 U/L Normal 38-126 [facility] Comment on above: Performed By: #### C MP, BNP, HSTROPN #### [facility] [address] [address] [address] Mike Lynn ALT [Catalytic activity/Vol] 20 U/L Critically low 21-72 [facility] Comment on above: Performed By: #### C MP, BNP, HSTROPN #### [facility] [address] [address] [address] Mike Lynn Anion gap [Moles/Vol] 13.3 mmol/L Normal [facility] Comment on above: Performed By: #### C MP, BNP, HSTROPN #### [facility] [address] [place] [address] Dr. Mike Lynn AST [Catalytic activity/Vol] 19 U/L Normal 17-59 [facility] Comment on above: Performed By: #### C MP, BNP, HSTROPN #### [facility] [address] [place] [address] Dr. Mike Lynn Bilirubin [Mass/Vol] 0.4 mg/dL Normal 0.2-1.3 [facility] Comment on above: Performed By: #### C MP, BNP, HSTROPN #### [facility] [address] [place] [address] Dr. Mike Lynn Calcium [Mass/Vol] 9.4 mg/dL Normal 8.4-10.2 [facility] Comment on above: Performed By: #### C MP, BNP, HSTROPN #### [facility] [address] [place] [address] Dr. Mike Lynn Chloride [Moles/Vol] 104 mmol/L Normal 98-107 [facility] Comment on above: Performed By: #### C MP, BNP, HSTROPN #### [facility] [address] [place] [address] Dr. Mike Lynn CO2 [Moles/Vol] 25.9 mmol/L Normal 22.0-30.0 [facility] Comment on above: Performed By: #### C MP, BNP, HSTROPN #### [facility] [address] [place] [address] Dr. Mike Lynn Creatinine [Mass/Vol] 1.29 mg/dL Critically high 0.66-1.25 [facility] Comment on above: Performed By: #### C MP, BNP, HSTROPN #### [facility] [address] [place] [address] Dr. Mike Lynn EGFR-AF [place] >60 Normal >=60 [facility] Comment on above: Performed By: #### C MP, BNP, HSTROPN #### [facility] [address] [place] [address] Dr. Mike Lynn EGFR-NON AF [place]IZEN [place] 59 mL/min/1.73m2 Critically low >=60 [facility] Comment on above: Performed By: #### C MP, BNP, HSTROPN #### [facility] [address] [place] [address] Dr. Mike Lynn Globulin (S) [Mass/Vol] 3.8 g/dL Normal [facility] Comment on above: Performed By: #### C MP, BNP, HSTROPN #### [facility] [address] [place] [address] Dr. Mike Lynn Glucose [Mass/Vol] 99 mg/dL Normal 74-106 [facility] Comment on above: Performed By: #### C MP, BNP, HSTROPN #### [facility] [address] [place] [address] Dr. Mike Lynn Potassium [Moles/Vol] 3.2 mmol/L Critically low 3.4-5.0 [facility] Comment on above: Performed By: #### C MP, BNP, HSTROPN #### [facility] [address] [place] [address] Dr. Mike Lynn Protein [Mass/Vol] 7.9 g/dL Normal 6.1-8.2 [facility] Comment on above: Performed By: #### C MP, BNP, HSTROPN #### [facility] [address] [place] [address] Dr. Mike Lynn Sodium [Moles/Vol] 140 mmol/L Normal 137-145 [facility] Comment on above: Performed By: #### C MP, BNP, HSTROPN #### [facility] [address] [place] [address] Dr. Mike Lynn Urea nitrogen [Mass/Vol] 9.0 mg/dL Normal 9.0-20.0 [facility] Comment on above: Performed By: #### C MP, BNP, HSTROPN #### [facility] [address] [place] [address] Dr. Mike Lynn Urea nitrogen/Creatinine [Mass ratio] 7.0 mg/mg Normal [facility] Comment on above: Performed By: #### C MP, BNP, HSTROPN #### [facility] [address] [place] [address] Dr. Mike Lynn PROTIMEon 05-08-2021 INR Coag (PPP) [Relative time] 0.97 {INR} Normal [facility] Comment on above: Performed By: #### E RUR #### [facility] [address] [place] [address] Dr. Mike Lynn INR GUIDELINES SEE BELOW Normal [facility] Comment on above: Result Comment: JEROME RED INR: 2.0 - 3.0 CONDITIONS NOT LISTED BELOW 2.5 - 3.5 FOR PROSTHETIC HEART VALVE REPLACEMENT 2.5 - 3.5 RECURRENT THROMBOSIS Performed By: #### E RUR #### [facility] [address] [place] [address] Dr. Mike Lynn PT Coag (PPP) [Time] 10.5 s Normal 9.0-11.6 [facility] Comment on above: Performed By: #### E RUR #### [facility] [address] [place] [address] Dr. Mike Lynn PTTon 05-08-2021 aPTT Coag (Bld) [Time] 26.2 s Normal 22.3-36.2 [facility] Comment on above: Performed By: #### E RUR #### [facility] [address] [place] [address] Dr. Mike Lynn SYMPTOMATIC COVID-19 ANTIGEN on 05-08-2021 EUA Statement SEE BELOW Normal [facility] Comment on above: Result Comment: This test has not been FDA cleared or approved, but has been authorized by the FDA under an Emergency Use Authorization (EUA) for use by authorized laboratories certified under CLIA that meet the requirements to perform moderate or high complexity testing. This test has been authorized only for the detection of proteins from SARS-CoV-2, not for any other viruses or pathogens. The emergency use of this test is authorized for the duration of the declaration that circumstances exist justifying the authorization of emergency use of in vitro diagnostic tests for detection and/or diagnosis of Covid-19 under section 564(b)(1) of the Act, 21 U.S.C. 360bbb-3(b)(1), unless the declaration is terminated or authorization is revoked sooner. Performed By: #### E RUR #### [facility] [address] [place] [address] Dr. Mike Lynn SARS-CoV-2 (COVID-19) RNA MECHE+probe Ql (Unsp spec) Negative Normal NEGATIVE [facility] Comment on above: Result Comment: CONF IRMATION BY PCR PENDING PER CDC GUIDELINES/ SYMPTOMATIC PATIENT. Performed By: #### E RUR #### [facility] [address] [place] [address] Dr. Mike Lynn TROPONIN, HIGH SENSITIVITYon 05-08-2021 HSTROP 7.9 pg/mL Normal 4.0-42.2 [facility] Comment on above: Result Comment: CUT- OFF POINTS HAVE BEEN ESTABLISHED BASED ON THE FOURTH UNIVERSAL DEFINITIONS OF MYOCARDIAL INFARCTION. THE UPPER REFERENCE LIMIT (URL) OF TROPONIN, DEFINED THE 99TH PERCENTILE OF cTnI DISTRIBUTION IN A REFERENCE POPULATION, HAS BEEN CONFIRMED THE DECISION THRESHOLD FOR AR DIAGNOSIS. Performed By: #### A 1C #### [facility] [address] [place] [address] Claribel Avila HSTROP 7.8 pg/mL Normal 4.0-42.2 [facility] Comment on above: Result Comment: CUT- OFF POINTS HAVE BEEN ESTABLISHED BASED ON THE FOURTH UNIVERSAL DEFINITIONS OF MYOCARDIAL INFARCTION. THE UPPER REFERENCE LIMIT (URL) OF TROPONIN, DEFINED THE 99TH PERCENTILE OF cTnI DISTRIBUTION IN A REFERENCE POPULATION, HAS BEEN CONFIRMED THE DECISION THRESHOLD FOR AR DIAGNOSIS. Performed By: #### C MP, BNP, HSTROPN #### [facility] [address] [place], [place] [address] Dr. Mike Lynn XR CHEST 1 Von 05-08-2021 XR CHEST 1 V EXAMINATION: XR CHES T 1 V HISTORY: CHEST PAIN, UNSPECIFIED COMPARISON: 02/25/2008. FINDINGS: There is no focal airspace consolidation. There is no appreciable pneumothorax or pleural effusion. The pulmonary vascularity is within normal limits for technique. The cardiomediastinal silhouette is within normal limits. IMPRESSION: Lungs are clear. No acute cardiopulmonary disease. Electronically authenticated by: JESSENIA CORBETT Date: 2021-05-08 17:45 Normal [facility] CBC AUTO DIFFon 04-10-2021 BASO # 0.1 103/ul Normal 0.0-0.1 [facility] Comment on above: Performed By: #### C BC #### [facility] [address] [place], [place] [address] Claribel Margarita Basophils/100 WBC (Bld) 0.6 % Normal 0.2-2.0 [facility] Comment on above: Performed By: #### C BC #### [facility] [address] [place] [address] Claribel Margarita EO # 0.3 103/ul Normal 0.0-0.7 [facility] Comment on above: Performed By: #### C BC #### [facility] [address] [place], [place] [address] Claribel Margarita Eosinophils/100 WBC (Bld) 2.2 % Normal 0.9-7.0 [facility] Comment on above: Performed By: #### C BC #### [facility] [address] [place], [place] [address] Claribel Margarita Erythrocyte distribution width (RBC) [Ratio] 13.1 % Normal 11.0-15.0 [facility] Comment on above: Performed By: #### C BC #### [facility] [address] [place] [address] Claribel Avila Hematocrit (Bld) [Volume fraction] 44.2 % Normal 42.0-54.0 [facility] Comment on above: Performed By: #### C BC #### [facility] [address] [place], [place] [address] Claribel Avila Hemoglobin (Bld) [Mass/Vol] 14.3 g/dL Normal 14.0-18.0 [facility] Comment on above: Performed By: #### C BC #### [facility] [address] [place], [place] [address] Claribel Margarita IG # 0.07 10e3/ul Critically high 0.00-0.03 [facility] Comment on above: Performed By: #### C BC #### [facility] [address] [place] [address] Claribeltoyin Avila IG % 0.5 % Normal 0.0-0.5 [facility] Comment on above: Performed By: #### C BC #### [facility] [address] [place] [address] Claribel Margarita LYMPH # 3.9 103/ul Critically high 1.2-3.8 The [facility] Comment on above: Performed By: #### C BC #### [facility] [address] [place], [place] [address] Claribel Avila Lymphocytes/100 WBC (Bld) 29.6 % Normal 20.5-60.0 [facility] Comment on above: Performed By: #### C BC #### [facility] [address] [place] [address] Claribel Avila MANUAL DIFF REQ NO Normal [facility] Comment on above: Performed By: #### C BC #### [facility] [address] [place], [place] [address] Claribel Avila MCH (RBC) [Entitic mass] 31.5 pg Normal 25.9-34.0 [facility] Comment on above: Performed By: #### C BC #### [facility] [address] [place], [place] [address] Claribel Avila MCHC (RBC) [Mass/Vol] 32.4 g/dL Normal 29.9-35.2 [facility] Comment on above: Performed By: #### C BC #### [facility] [address] [place], [place] [address] Claribel Avila MCV (RBC) [Entitic vol] 97.4 fL Critically high 80.0-94.0 [facility] Comment on above: Performed By: #### C BC #### [facility] [address] [place], [place] [address] Claribel Avila MONO # 0.8 103/ul Normal 0.3-0.8 [facility] Comment on above: Performed By: #### C BC #### [facility] [address] [place], [place] [address] Claribel Avila Monocytes/100 WBC (Bld) 6.2 % Normal 1.7-12.0 [facility] Comment on above: Performed By: #### C BC #### [facility] [address] [place] [address] Claribel Avila NEUT # 8.1 103/ul Critically high 1.4-6.5 [facility] Comment on above: Performed By: #### C BC #### [facility] [address] [place], [place] [address] Claribel Avila Neutrophils/100 WBC (Bld) 60.9 % Normal 43.0-75.0 [facility] Comment on above: Performed By: #### C BC #### [facility] [address] [place], [place] [address] Claribel Avila Platelet mean volume (Bld) [Entitic vol] 10.3 fL Normal 9.5-13.5 [facility] Comment on above: Performed By: #### C BC #### [facility] [address] [place], [place] [address] Claribel Deckeren PLT 219 103/ul Normal 150-450 [facility] Comment on above: Performed By: #### C BC #### [facility] [address] [place], [place] [address] Claribel Margarita RBC 4.54 106/ul Critically low 4.70-6.10 [facility] Comment on above: Performed By: #### C BC #### [facility] [address], [place] [address] Claribel Avila WBC 13.3 103/ul Critically high 4.0-11.0 [facility] Comment on above: Performed By: #### C BC #### [facility] [address], [place] [address] Claribel Avila GLYCOHEMOGLOBIN A1Con 2020 ADA RECOMMENDATION ADA THERAPEUTIC TARG ET 6.0 - 7.0 ACTION SUGGESTED > 7.0 Normal [facility] Comment on above: Performed By: #### A 1C #### [facility] [address] [address] Claribel Avila Glucose [Mass/Vol] 117 mg/dL Normal [facility] Comment on above: Performed By: #### A 1C #### [facility] [address] [place] [address] Claribel Avila HbA1c (Bld) [Mass fraction] 5.7 % Normal <=6.0 [facility] Comment on above: Performed By: #### A 1C #### [facility] [address] [place], [place] [address] Claribel Avila LIPID PROFILEon 04-10-2021 CHOL-HDL RATIO NORM SEE BELOW Normal [facility] [place] Comment on above: Result Comment: 3.3 - 4.4 LOW RISK 4.4 - 7.1 AVERAGE RISK 7.1 - 11.0 MODERATE RISK >11.0 HIGH RISK Performed By: #### E RUR #### [facility] [address] [place] [address] Dr. Mike Lynn Cholesterol [Mass/Vol] 263 mg/dL Critically high <=200 [facility] Comment on above: Performed By: #### E RUR #### [facility] [address] [address] [address] Mike Lynn Cholesterol in HDL [Mass/Vol] 42 mg/dL Normal [facility] Comment on above: Performed By: #### E RUR #### [facility] [address] [address] [address] Mike Lynn Cholesterol in LDL [Mass/Vol] 170.2 mg/dL Normal [facility] Comment on above: Performed By: #### E RUR #### [facility] [address] [address] [address] Mike Lynn Cholesterol.total/Ch olesterol in HDL [Mass ratio] 6.3 {ratio} Normal [facility] Comment on above: Performed By: #### E RUR #### [facility] [address] [address] [address] Mike Lynn HDL NORMAL > or = 60 mg/dl - LO W CARDIOVASCULAR RISK <40 mg/dl - HIGH CARDIOVASCULAR RISK Normal [facility] Comment on above: Performed By: #### E RUR #### [facility] [address] [place] [address] Dr. Mike Lynn LDL CALC NORMAL SEE BELOW Normal [facility] Comment on above: Result Comment: <100 mg/dl OPTIMAL 100 - 129 mg/dl NEAR OR ABOVE OPTIMAL 130 - 159 mg/dl BORDERLINE HIGH 160 - 189 mg/dl HIGH >190 mg/dl VERY HIGH Performed By: #### E RUR #### [facility] [address] [address] [address] Mike Lynn Triglyceride [Mass/Vol] 254 mg/dL Critically high <=150 [facility] Comment on above: Performed By: #### E RUR #### [facility] [address] [place] [address] Dr. Mike Lynn VLDL CALC 50.8 mg/dL Normal [facility] Comment on above: Performed By: #### E RUR #### [facility] [address] [address] [address] Mike Lynn PROF CHEM 8 (BAS METB)on Anion gap [Moles/Vol] 10.7 mmol/L Normal [facility] Comment on above: Performed By: #### E RUR #### [facility] [address] [place] [address] Dr. Mike Lynn Calcium [Mass/Vol] 9.0 mg/dL Normal 8.4-10.2 [facility] Comment on above: Performed By: #### E RUR #### [facility] [address] [address] [address] Mike Lynn Chloride [Moles/Vol] 104 mmol/L Normal 98-107 [facility] Comment on above: Performed By: #### E RUR #### [facility] [address] [address] [address] Mike Lnyn CO2 [Moles/Vol] 31.1 mmol/L Critically high 22.0-30.0 [facility] Comment on above: Performed By: #### E RUR #### [facility] [address] [address] [address] Mike Lynn Creatinine [Mass/Vol] 1.18 mg/dL Normal 0.66-1.25 [facility] Comment on above: Performed By: #### E RUR #### [facility] [address] [place] [address] Dr. Mike Lynn EGFR-AF [place] >60 Normal >=60 [facility] Comment on above: Performed By: #### E RUR #### [facility] [address] [place] [address] Dr. Mike Lynn EGFR-NON AF [place]IZ[place] >60 Normal >=60 [facility] Comment on above: Performed By: #### E RUR #### [facility] [address] [place] [address] Dr. Mike Lynn Glucose [Mass/Vol] 86 mg/dL Normal 74-106 [facility] Comment on above: Performed By: #### E RUR #### [facility] [address] [place] [address] Dr. Mike Lynn Potassium [Moles/Vol] 4.8 mmol/L Normal 3.4-5.0 [facility] Comment on above: Performed By: #### E RUR #### [facility] [address] [place] [address] Dr. Mike Lynn Sodium [Moles/Vol] 141 mmol/L Normal 137-145 [facility] Comment on above: Performed By: #### E RUR #### [facility] [address] [address] [address] Mike Lynn Urea nitrogen [Mass/Vol] 7.0 mg/dL Critically low 9.0-20.0 [facility] Comment on above: Performed By: #### E RUR #### [facility] [address] [address] [address] Mike Lynn Urea nitrogen/Creatinine [Mass ratio] 5.9 mg/mg Normal [facility] Comment on above: Performed By: #### E RUR #### [facility] [address] [address] [address] Mike Lynn SGOTon 04-10-2021 AST [Catalytic activity/Vol] 19 U/L Normal 17-59 [facility] Comment on above: Performed By: #### E RUR #### [facility] [address] [address] [address] Mike Lynn SGPTon 04-10-2021 ALT [Catalytic activity/Vol] 24 U/L Normal 21-72 [facility] Comment on above: Performed By: #### E RUR #### [facility] [address] [address] [address] Mike Lynn Encounters Encounter Date Encounter Type Care Provider Facility Start: 07-03-2023 ambulatory Aldo Stockton acility:[facility] Start: 06-06-2022 End: 06-10-2022 ambulatory RAIMUNDO L. [facility] Start: 02-03-2022 End: 02-03-[address] MARGIE NAVAS Facility:[facility] Start: 09-28-2021 End: 09-29-[address] MARGIE NAVAS Facility:[facility] Start: 08-13-2021 End: 08-23-2021 ambulatory SHAIKH Nadia GIL Facility:[facility] Start: 07-27-2021 End: 08-11-2021 ambulatory SHAIKH Nadia GIL Facility:[facility] Start: 07-25-2021 End: 07-26-2021 ambulatory SHAIKH Nadia GIL Facility:[facility] Start: 07-19-2021 End: 07-19-[address] MARGIE NAVAS Facility:[facility] Start: 05-08-2021 End: 05-08-[address] MARGIE NAVAS Facility:[facility] Start: 04-10-2021 End: 04-11-[address] MARGIE NAVAS Facility:[facility] Procedures Date Procedure Procedure Detail Performing Clinician Start: 04-10-[address] MARGIE LAWTON Comment on above: Performed By: #### P [facility] #### [facility] [address] [place] [id number] Claribel Avila Payers Date Payer Category Payer Self-pay 1970 Unknown [id number] 1970 Unknown [id number] 1970 Unknown [id number] 2.16.84 [id number] 1970 Unknown [id number] 2.16.84 [id number] 1970 Unknown [id number] 2.16.84 [id number] 1970 Unknown [id number] 2.16.84 [id number] 1970 Unknown [id number] 2.16.84 [id number] 1970 Unknown [id number] 2.16.84 [id number] 1970 Unknown [id number] 2.16. [id number] 1959 Medicaid [id number] 1959 Medicare [id number] Summary Purpose Family History No Family History Records FoundNo Family History Records FoundNo Family History Records Found Advance Directives No Advanced Directives Records FoundNo Advanced Directives Records FoundNo Advanced Directives Records Found Additional Source Comments (unrecognized sect ion and content) No Status Records FoundNo Status Records Found INFORMATION SOURCE (unrecogn ized section and content) DATE CREATED AUTHOR 02/07/2022 [facility] DATE CREATED AUTHOR AUTHOR'S ORGANCRUZ ATION 06/10/2022 [facility] DATE CREATED AUTHOR AUTHOR'S ORGANIZ ATION 09/11/2023 [facility] FOR RECORDS PERTAINING TO PATIENTS WHO ARE OR HAVE BEEN ENROLLED IN A CHEMICAL DEPENDENCY/SUBSTANCEABUSE PROGRAM, SOME INFORMATION MAY BE OMITTED. This clinical summary was aggregated from multiple sources. Caution should be exercised in using it in the provision of clinical care. This summary normalizes information from multiple sources, and as a consequence, information in this document may materially change the coding, format and clinical context of patient data. In addition, data may be omitted in some cases. CLINICAL DECISIONS SHOULD BE BASED ON THE PRIMARY CLINICAL RECORDS. [facility] [employer] provides no warranty or guarantee of the accuracy or completeness of information in this document.
[2023-09-18 12:46] LABS: Hemoglobin 15.1 g/dL (14.0-18.0)
--- NOTE | 2023-09-18 13:31 | RT_ITS ---
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 Findings were considered accurate and reproducible. Both pre- and post-bronchodilator values utilized for spirometry. Spirometry (based on pre-bronchodilator values): -FEV1/FVC: Reduced @ 62% -FEV1: Moderately-severe reduced @ 52% -FVC: Reduced @ 66% -There is a positive bronchodilator response in FEV1 and FVC. Lung volumes by plethysmography (based on pre-bronchodilator values): -RV: Increased @ 198% -TLC: Normal @ 111% Diffusion capacity: -DLCO: Moderate reduction @ 65% when corrected for Hb 15.1g/dL Flow-volume loop: -Moderate obstructive pattern Flow-pressure loop: ???Emphysematous pattern Impressions: Spirometry suggests moderate obstruction. There is a positive bronchodilator response. An elevated RV suggests air trapping. There is a moderately reduced diffusion capacity. Overall study is compatible with COPD with a bronchodilator response or asthma-COPD overlap. Clinical correlation required. Electronically Signed On 09-18-2023 15:59:37 EST by Sagar Johnson
[2023-09-18] MEDS: ALBUTEROL SULFATE 2.5 MG/3 ML VIAL NEB IH (13:32)
== END 2023-09-18 12:30 | disposition home or self-care (01) ==
LOC: CARD 12:29
PROVIDERS: PCP Family Medicine; Visit Provider Internal Medicine
DX: J44.9 Chronic obstructive pulmonary disease, unspecified (principal)
CPT/HCPCS: 36415; 85018; 94060; 94726; 94729; 99406

== ENCOUNTER 2024-05-19 14:19 | Emergency (ER) | payer MEDICARE, MEDICAID, SELFPAY ==
[2024-05-19] VITALS (12 sets, daily range): BP systolic 108–118; BP diastolic 81–89; PULSE 79–109; TEMP 36.8; O2SAT 94–98; BMI 29.5
--- NOTE | 2024-05-19 14:45 | ECG_ITS ---
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
[2024-05-19 15:01] LABS: Basophils Absolute Auto 0.1 10^3/uL (0.0-0.1); Basophils Percent Auto 0.6 % (0.2-2.0); Eosinophils Absolute Auto 0.2 10^3/uL (0.0-0.7); Eosinophils Percent Auto 1.7 % (0.9-7.0); Hematocrit 42.7 % (42.0-54.0); Hemoglobin 14.3 g/dL (14.0-18.0); Immature Granulocytes Abs Auto 0.04 10^3/uL (0.00-0.03); Immature Granulocytes Pct Auto 0.4 % (0.0-0.5); Lymphocytes Absolute Auto 3.3 10^3/uL (1.2-3.8); Lymphocytes Percent Auto 30.7 % (20.5-60.0); Mean Corpuscular HGB Conc 33.5 g/dL (29.9-35.2); Mean Corpuscular Hemoglobin 31.6 pg (25.9-34.0); Mean Corpuscular Volume 94.5 fL (80.0-94.0); Mean Platelet Volume 9.3 fL (9.5-13.5); Monocytes Absolute Auto 0.8 10^3/uL (0.3-0.8); Monocytes Percent Auto 7.5 % (1.7-12.0); Neutrophils Absolute Auto 6.4 10^3/uL (1.4-6.5); Neutrophils Percent Auto 59.1 % (43.0-75.0); Platelet Count 168 10^3/uL (150-450); Red Blood Count 4.52 10^6/uL (4.70-6.10); Red Cell Distribution Width 12.4 % (11.0-15.0); White Blood Count 10.8 10^3/uL (4.0-11.0)
[2024-05-19 15:10] LABS: BUN Creatinine Ratio 9.2; Calcium 8.9 mg/dL (8.5-10.1); Chloride 100 mmol/L (98-107); Estimated GFR (African America >60 (>=60 mL/min/1.73m^2); Estimated GFR (Non-African Ame 58 (>=60 mL/min/1.73m^2); Glucose 93 mg/dL (74-106); Potassium 3.7 mmol/L (3.5-5.1); Sodium 136 mmol/L (136-145)
[2024-05-19 15:14] LABS: Carbon Dioxide 27.7 mmol/L (21.0-32.0)
--- NOTE | 2024-05-19 15:29 | CT_ITS ---
The [address] [address] Patient Name: MARRY ANTONIO MRN: [id number] date: 1970 Sex: M Assigned Patient Location: ER Current Patient Location: ER Accession/Order Number: [id number] Exam Date: 05/19/2024 15:25 Report Date: 05/19/2024 15:53 At the request of: ACE BAJWA Procedure: CT head/brain wo con EXAMINATION: CT head/brain wo con HISTORY: right sided facial droop ; patient fell and struck head 2 weeks ago COMPARISON: No relevant comparison available. TECHNIQUE: Axial CT images were obtained without IV contrast. Dose reduction techniques were achieved by using automated exposure control and/or adjustment of mA and/or kV according to patient size and/or use of iterative reconstruction technique. FINDINGS: BRAIN: No edema, hemorrhage, mass, acute infarction, or inappropriate atrophy. CSF SPACES: No hydrocephalus, subarachnoid hemorrhage, or mass. Appropriate for age. SKULL: No fracture, mass, or other significant visible lesion. SINUSES: No significant mucosal thickening or fluid on the limited views. ORBITS: No appreciable abnormality on the limited views. OTHER: Negative CT/CT head/brain wo con IMPRESSION: 1. No abnormal or suspicious findings to account for patient's symptoms. Electronically authenticated by: RICCARDO ROJAS Date: 05/19/2024 15:53
--- NOTE | 2024-05-19 17:19 | ED.GENADUL1 ---
HPI HPI - General Adult General Chief complaint: Neuro Symptoms/Deficit Stated complaint: CVA SYMPTOMS Time Seen by Provider: 05/19/24 14:39 Source: patient Mode of arrival: walk-in Limitations: no limitations History of Present Illness HPI narrative: 53-year-old male to the emergency department with chief complaint of right-sided facial droop. Patient reports that he first noticed it 2 weeks ago. His neighbor told him that he had some facial droop on the right side. Patient noticed that he sometimes drools out of that side of his mouth. He reports he has had some decrease sensation on the right side and difficulty closing his right eye all the way. He did not think much of this. He reports that he did have a fall head injury a few weeks ago. He went to his psychiatry appointment today and they were concerned about the facial droop and referred him to the emergency department. Related Data Home Medications ?Medication ?Instructions ?Recorded ?Confirmed albuterol sulfate 90 mcg/actuation 2 puff inhalation Q4H PRN 07/22/23 07/22/23 aerosol inhaler shortness of breath or wheezing atorvastatin 40 mg tablet 40 mg PO BEDTIME 07/22/23 07/22/23 baclofen 20 mg tablet 20 mg PO Q12H 07/22/23 07/23/23 buspirone 30 mg tablet 30 mg PO BID 07/22/23 07/23/23 furosemide 40 mg tablet 40 mg PO DAILY 07/22/23 07/22/23 lamotrigine 200 mg tablet 200 mg PO BEDTIME 07/22/23 07/22/23 oellhovl-imb-brudq acid 0.4 1 tab PO Q24H 07/22/23 07/22/23 mg-lycopene 300 mcg-lutein 250 mcg tablet (Spectravite Adult 50 Plus) nabumetone 500 mg tablet 500 mg PO BID 07/22/23 07/23/23 risperidone 4 mg tablet 4 mg PO BEDTIME 07/22/23 07/22/23 sildenafil 25 mg tablet 25 mg PO Q24H PRN sexual activity 07/22/23 07/22/23 Previous Rx's ?Medication ?Instructions ?Recorded azithromycin 250 mg tablet 250 mg PO DAILY 4 days #4 tabs 07/25/23 budesonide-formoterol HFA 160 1 inh inhalation BID 30 days #10.2 07/25/23 mcg-4.5 mcg/actuation aerosol grams inhaler (Symbicort) duloxetine 60 mg capsule,delayed 120 mg (2 x 60 mg) PO DAILY 30 07/25/23 release days #60 caps nicotine 14 mg/24 hr daily 14 mg transdermal Q24H 30 days #30 07/25/23 transdermal patch ea prednisone 10 mg tablet 10 mg PO .take as directed 12 days 07/25/23 #30 tabs umeclidinium 62.5 mcg/actuation 1 inh inhalation DAILY 30 days #30 07/25/23 blister powder for inhalation ea (Incruse Ellipta) methylprednisolone 4 mg tablets in 4 mg PO DAILY #21 ea 05/19/24 a dose pack (Medrol (Francis)) white petrolatum-mineral oil 56.8 1 applic ophthalmic (eye) QPM 14 05/19/24 %-42.5 % eye ointment (Refresh days #3.5 grams Lacri-Lube) Allergies Allergy/AdvReac Type Severity Reaction Status Date / Time Penicillins Allergy Severe Swelling Verified 05/19/24 14:42 of Lip/Tongue/Throat Opioid HPI Opioid Management Most Recent Opioid Data: Last Pain Scale 0 07/24/23 23:21 Review of Systems ROS Status of ROS 10 or more systems reviewed and unremarkable except as noted in history and below [facility] Medical History (Updated 05/19/24 @ 16:28 by Morales Campbell MD) Schizophrenia ?F20.9 - Schizophrenia, unspecified (ICD-10) Insomnia ?G47.00 - Insomnia, unspecified (ICD-10) Tobacco abuse ?Z72.0 - Tobacco use (ICD-10) COPD (chronic obstructive pulmonary disease) ?J44.9 - Chronic obstructive pulmonary disease, unspecified (ICD-10) Hyperlipidemia ?E78.5 - Hyperlipidemia, unspecified (ICD-10) Surgical History (Updated 07/22/23 @ 18:17 by Shelly Galicia) H/O Spinal surgery ?Z98.890 - Other specified postprocedural states (ICD-10) Hx of inguinal hernia surgery ?Z98.890 - Other specified postprocedural states (ICD-10) ?Z87.19 - Personal history of other diseases of the digestive system (ICD-10) Family History (Updated 07/22/23 @ 18:20 by Shelly Galicia) Other Family history not known due to adoption Social History (Updated 07/22/23 @ 18:19 by Shelly Galicia) Within the past year, how often did you have a drink containing alcohol: monthly or less Smoking status: Current every day smoker 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 Known occupational exposures/hazards: Yes Known occupational exposures/hazards details: asbestos/lead paint Highest level of school completed/degree received: 11th grade Are you now , , , , never or living with a partner: living with partner In a typical week, how many times do you talk on the telephone with family, friends, or neighbors: 3 or more times per week How often do you get together with friends or relatives: 3 or more times per week Little interest or pleasure in doing things: not at all Feeling down, depressed, or hopeless: not at all Feel stressed/tense/nervous/anxious/difficulty sleeping: not at all Do you think of yourself as: straight/heterosexual Gender Identity: male Exam Narrative Exam Narrative: VITALS: I have reviewed the triage vital signs. GENERAL: Well developed, well appearing adult in no acute distress. NEURO: Alert and oriented. Moves all extremities. Mild right-sided facial droop. Loss of folds in the right forehead. Inability completely close the right eye. Motor strength and sensation are grossly intact in the upper and lower extremities bilaterally. No ataxia. No visual field defects. No dysarthria or aphasia. EYES: PERRL. No scleral icterus or conjunctival injection. No discharge. HENT: Normocephalic, atraumatic. Hearing is grossly intact. Nares grossly patent and without discharge. Mucous membranes moist. NECK: No JVD. Patient moves neck without restriction. CARDIO: Rhythm regular. Normal rate. No murmur, rub, or gallop. Pulses equal bilaterally in the upper and lower extremity. No lower extremity edema. PULM: Lungs clear to auscultation in all vernon. No wheezes, rales, or rhonchi. No conversational dyspnea. No splinting, stridor, or accessory muscle use. GI/: Abdomen is soft and non-tender. Normoactive bowel sounds. EXTREMITIES: Symmetric muscle bulk. No joint swelling. No clubbing, cyanosis, or deformity. SKIN: Warm and dry. Normal turgor. No rash or lesions appreciated. PSYCH: Mood, affect, and interaction is appropriate to the setting. Constitutional Vital Signs, click to edit/add: Last Vital Signs Temp 98.2 F 05/19/24 14:28 Pulse 82 05/19/24 16:20 Resp 20 05/19/24 16:20 BP 118/89 05/19/24 16:15 Pulse Ox 97 05/19/24 16:20 O2 Del Method Room Air 05/19/24 14:28 Course Vital Signs Vital signs: Vital Signs Temperature 98.2 F 05/19/24 14:28 Pulse Rate 109 H 05/19/24 14:28 Respiratory Rate 20 05/19/24 14:28 Blood Pressure 111/83 05/19/24 14:28 Pulse Oximetry 95 05/19/24 14:28 Oxygen Delivery Method Room Air 05/19/24 14:28 Temperature 98.2 F 05/19/24 14:28 Pulse Rate 82 05/19/24 16:20 Respiratory Rate 20 05/19/24 16:20 Blood Pressure 118/89 05/19/24 16:15 Pulse Oximetry 97 05/19/24 16:20 Oxygen Delivery Method Room Air 05/19/24 14:28 Medical Decision Making MDM Narrative Medical decision making narrative: 53-year-old male to the emergency department with chief complaint of right sided facial droop. Vital stable, the patient is afebrile. History and exam are concerning for White's palsy. He has no focal neurologic deficits aside from the right sided facial droop. The pattern is that of peripheral versus central. Lab work unremarkable. CT head without acute findings. Doubt stroke. Patient has appoint with his PCP tomorrow. Will place him on a steroid pack. Follow-up with ENT. Sammi. Patient agrees with this plan. Return precautions were discussed. All questions were answered. The patient was discharged home Medical Records Medical records reviewed: Yes I reviewed the patient's medical records Lab Data Lab results reviewed: Yes I reviewed the patient's lab results Labs: Lab Results 05/19/24 Range/Units 14:55 WBC 10.8 (4.0-11.0) 10^3/uL RBC 4.52 L (4.70-6.10) 10^6/uL Hgb 14.3 (14.0-18.0) g/dL Hct 42.7 (42.0-54.0) % MCV 94.5 H (80.0-94.0) fL MCH 31.6 (25.9-34.0) pg MCHC 33.5 (29.9-35.2) g/dL RDW 12.4 (11.0-15.0) % Plt Count 168 (150-450) 10^3/uL MPV 9.3 L (9.5-13.5) fL Neut % (Auto) 59.1 (43.0-75.0) % Lymph % (Auto) 30.7 (20.5-60.0) % [place] % (Auto) 7.5 (1.7-12.0) % Eos % (Auto) 1.7 (0.9-7.0) % Baso % (Auto) 0.6 (0.2-2.0) % Neut # (Auto) 6.4 (1.4-6.5) 10^3/uL Lymph # (Auto) 3.3 (1.2-3.8) 10^3/uL [place] # (Auto) 0.8 (0.3-0.8) 10^3/uL Eos # (Auto) 0.2 (0.0-0.7) 10^3/uL Baso # (Auto) 0.1 (0.0-0.1) 10^3/uL Abs Immat Gran (auto) 0.04 H (0.00-0.03) 10^3/uL Imm/Tot Granulo (auto) 0.4 (0.0-0.5) % Sodium 136 (136-145) mmol/L Potassium 3.7 (3.5-5.1) mmol/L Chloride 100 (98-107) mmol/L Carbon Dioxide 27.7 (21.0-32.0) mmol/L Anion Gap 12.0 BUN 12.0 (7.0-18.0) mg/dL Creatinine 1.30 (0.70-1.30) mg/dL Est GFR ( Amer) >60 (>=60 mL/min/1.73m^2) Est GFR (Non-Af Amer) 58 L (>=60 mL/min/1.73m^2) BUN/Creatinine Ratio 9.2 Glucose 93 (74-106) mg/dL Calcium 8.9 (8.5-10.1) mg/dL Imaging Data CT scan - head: Attestation: I have reviewed the pertinent imaging results. Radiologist's impression: ITS Impressions Head CT 05/19/24 15:29 IMPRESSION: 1. No abnormal or suspicious findings to account for patient's symptoms. Electronically authenticated by: RICCARDO ROJAS Date: 05/19/2024 15:53 ECG Data Attestation: I personally reviewed and interpreted this ECG as follows: (Sinus rhythm at a rate of 90. No STEMI. Normal QTc.) Discharge Plan Discharge Chief Complaint: Neuro Symptoms/Deficit Clinical Impression: White's palsy Patient Disposition: Home, Self-Care Time of Disposition Decision: 16:27 Condition: Good Mode of Transportation: Private Vehicle Prescriptions / Home Meds: New methylprednisolone [Medrol (Francis)] 4 mg tablets,dose pack 4 mg PO DAILY Qty: 21 0RF Rx Instructions: TAKE PER DOSEPAK INSTRUCTIONS Refresh Lacri-Lube 56.8-42.5 % ointment 1 applic ophthalmic (eye) QPM 14 Days Qty: 3.5 0RF No Action albuterol sulfate 90 mcg/actuation HFA aerosol inhaler 2 puff INHALATION Q4H PRN (Reason: shortness of breath or wheezing) baclofen 20 mg tablet 20 mg PO Q12H Rx Instructions: TAKES AT 0900,1500 atorvastatin 40 mg tablet 40 mg PO BEDTIME buspirone 30 mg tablet 30 mg PO BID Rx Instructions: TAKES AT 0900, 1500 furosemide 40 mg tablet 40 mg PO DAILY lamotrigine 200 mg tablet 200 mg PO BEDTIME Spectravite Adult 50 Plus 0.4 mg-300 mcg- 250 mcg tablet 1 tab PO Q24H nabumetone 500 mg tablet 500 mg PO BID Rx Instructions: TAKES AT 0900,1500 risperidone 4 mg tablet 4 mg PO BEDTIME sildenafil 25 mg tablet 25 mg PO Q24H PRN (Reason: sexual activity) nicotine 14 mg/24 hr Patch 24 Hour 14 mg transdermal Q24H 30 Days Qty: 30 0RF duloxetine 60 mg Capsule,Delayed Release(Dr/Ec) 120 mg PO DAILY 30 Days Qty: 60 0RF azithromycin 250 mg tablet 250 mg PO DAILY 4 Days Qty: 4 0RF prednisone 10 mg tablet 10 mg PO .take as directed 12 Days Qty: 30 0RF Rx Instructions: 40mg daily x 3 days, then 30mg daily x 3 days, then 20mg daily x 3 days, then 10mg daily x 3 days then stop. budesonide-formoterol [Symbicort] 160-4.5 mcg/actuation HFA aerosol inhaler 1 inh inhalation BID 30 Days Qty: 10.2 0RF Incruse Ellipta 62.5 mcg/actuation blister with device 1 inh inhalation DAILY 30 Days Qty: 30 0RF Print Language: Yoruba Instructions: White Palsy (ED) Additional Instructions: Call the office of your primary care doctor to arrange for follow-up within the above-stated timeframe. Your ED visit was focused on your acute issue and does not replace primary care. You should review your labs, imaging, and diagnoses from this ED visit with your primary care physician. There may be non-emergent/ incidental findings that need further evaluation. You should review your vital signs including blood pressure with your PCP. If you were prescribed medications you should discuss possible side-effects and drug interactions with your pharmacist. Call 911 or go to the nearest Emergency Department if you develop any new or worsening symptoms. Seek immediate medical attention if you develop: worsening headache, nausea, vomiting, confusion, weakness, loss of motion in your arms or legs, loss of control of your urine Referrals: Lali Hua MD [Physician] - 1 week Bruce José MD [Primary Care Provider] - 1 week Discharge Date/Time: 05/19/24 16:35
== END 2024-05-19 16:35 | disposition home or self-care (01) ==
PROVIDERS: Emergency Provider Student in an Organized Health Care Education/Training Program; PCP Family Medicine
DX: G51.0 Bell's palsy (principal); F17.200 Nicotine dependence, unspecified, uncomplicated
CPT/HCPCS: 36415; 70450; 80048; 85025; 93005; 99285

== ENCOUNTER 2024-05-27 08:15 | Outpatient (OUT) | payer MEDICARE, MEDICAID, SELFPAY ==
--- OUTSIDE RECORDS SUMMARY | 2024-05-27 08:23 | XMS_ITS | CCD ---
Author Organization [facility] Care Team Providers Care Office Chair Assembler Name Role Phone ELOISE, DR BRUCE Rosado Primary Care Unavailable MARYAM, KAROLYN Admitting Unavailable MARYAM, KAROLYN Attending Unavailable OXANA, DR GENNARO Natarajan Consulting Unavailable YEH, JESSENIA Consulting Unavailable MARYAM, KAROLYN Consulting Unavailable NADYAHIR, DR BRUCE Rosado Admitting Unavailable NADJUANR, DR BRUCE Rosado Attending Unavailable NADERER, DR BRUCE Rosado Primary Care Unavailable NADERER, DR BRUCE Rosado Consulting Unavailable FAWWAD, RICE H Admitting Unavailable FAWWAD, RICE H Attending Unavailable NADERER, DR BRUCE Rosado Primary Care Unavailable CRYTSAL, DR RICCARDO Natarajan Consulting Unavailable FAWJODID, RICE H Consulting Unavailable NADERER, DR BRUCE Rosado Admitting Unavailable NADERER, DR BRUCE Rosado Attending Unavailable NADERER, DR BRUCE Rosado Primary Care Unavailable ZIALON, DR RICCARDO Natarajan Consulting Unavailable NADERER, DR BRUCE Rosado Consulting Unavailable FAWWAD, RICE H Admitting Unavailable FAWWAD, RICE H Attending Unavailable NADERER, DR BRUCE Rosado Primary Care Unavailable FAWWAD, RICE H Admitting Unavailable FAWWAD, RICE H Attending Unavailable NADYAHIR, DR BRUCE Rosado Primary Care Unavailable NADERER, DR BRUCE Rosado Primary Care Unavailable MARYAM, KAROLYN Admitting Unavailable MARYAM, KAROLYN Attending Unavailable MARYAM, KAROLYN Consulting Unavailable NADYAHIR, DR BRUCE Rosado Primary Care Unavailable OXANA, DR GENNARO Natarajan Admitting Unavailable OXANA, DR GENNARO Natarajan Attending Unavailable OXANA, DR GENNARO Natarajan Consulting Unavailable BRANDI MEDINA Consulting Unavailable RAIMUNDO SAHA Primary Care Unavailable SYSTEM, PROVIDER NOT IN Admitting Unavailviviana Navas MD, Bruce Primary Care Provider Bruce Navas MD Primary Care Provider BRUCE NAVAS Attending Unavailable ABIDAEREDelgado, BRUCE Attending Unavailable NADERER, BRUCE Attending Unavailable NADERER, BRUCE Referring Unavailable Shalini, Aldo Attending Unavailab Aldo Brito Admitting Unavailab le NON STAFF Primary Care Unavailable Allergies Allergy Classification Reported Allergen(s) Allergy Type Date of Onset Reaction(s) Facility (1 source) Penicillins Drug allergy (disorder) 5 [facility] Repository (5 sources) Penicillins Propensity to adverse reactions 3 [facility] Medications Current Medications Medication Drug Class(es) Dates Sig (Normalized) Sig (Original) [id number] 200 actuat albuterol 0.09 mg/actuat metered dose inhaler (5 sources) beta2-Adrenergic Agonist take 2 puff(s) by inhalation every four hours for wheezing albuterol HFA 90 mcg/act inhaler Inhale 2 puffs every 4 (four) hours if needed for wheezing Active atorvastatin 40 mg oral tablet (5 sources) HMG-CoA Reductase Inhibitor take 1 tablet by mouth at bedtime atorvastatin (Lipitor) 40 MG tablet Take 40 mg by mouth at bedtime Active baclofen 20 mg oral tablet (1 source) gamma-Aminobutyric Acid-ergic Agonist Start: 07-09-2023 take 1 tablet by mouth three times daily as needed baclofen (Lioresal) 20 MG tablet Indications: Degeneration of lumbar intervertebral disc TAKE 1 TABLET BY MOUTH THREE TIMES A DAY NEEDED 90 tablet 3 07/09/2023 Active 60 actuat budesonide 0.16 mg/actuat / formoterol fumarate 0.0045 mg/actuat metered dose inhaler (5 sources) Corticosteroid, beta2-Adrenergic Agonist take 2 puff(s) by inhalation in the morning budesonide-formoter ol (Symbicort) 160-4.5 MCG/ACT inhaler Inhale 2 puffs in the morning and 2 puffs before bedtime. Rinse mouth with water after use to reduce aftertaste and incidence of candidiasis. Do not swallow.. Active busPIRone hydrochloride 30 mg oral tablet (5 sources) take 1 tablet by mouth in the morning busPIRone (Buspar) 30 MG tablet Take 30 mg by mouth in the morning and 30 mg before bedtime. Active celecoxib 200 mg oral capsule (4 sources) Nonsteroidal Anti-inflammatory Drug Start: 04-14-2024 take 1 capsule by mouth at bedtime celecoxib (CeleBREX) 200 MG capsule Indications: Degeneration, intervertebral disc, lumbar TAKE 1 CAPSULE BY MOUTH IN THE MORNING AND BEFORE BEDTIME WITH FOOD 60 capsule 3 04/14/2024 Active diazePAM 10 mg oral tablet (6 sources) Benzodiazepine Start: 01-27-2024 End: 05-14-2024 take 1 tablet by mouth three times daily as needed diazePAM (Valium) 10 MG tablet Indications: Generalized anxiety disorder (CMS/HCC) TAKE 1 TABLET BY MOUTH THREE TIMES A DAY NEEDED 90 tablet 1 05/14/2024 Active take 1 tablet by anjel th three times daily as needed diazePAM (Valium) 10 MG tablet Take 10 m g by mouth 3 (three) times a day as needed 0 Active DULoxetine 60 mg delayed release oral capsule (5 sources) Serotonin and Norepinephrine Reuptake Inhibitor take 1 capsule by mouth in the morning DULoxetine (Cymbalta) [address] capsule Take 60 mg by mouth in the morning. Do not crush or chew.. Active furosemide 40 mg oral tablet (6 sources) Loop Diuretic Start: End: take 1 tablet by mouth once daily as needed furosemide (Lasix) 40 MG tablet Indications: Lower extremity edema TAKE 1 TABLET BY MOUTH EVERY DAY NEEDED 90 tablet 3 05/14/2024 Active lamoTRIgine 200 mg oral tablet (4 sources) Mood Stabilizer, Anti-epileptic Agent Start: lamoTRIgine (LaMICtal) 200 MG tablet 11/12/2023 Active methocarbamol 750 mg oral tablet (4 sources) Muscle Relaxant Start: take 1 tablet by mouth four times daily as needed for muscle spasms methocarbamol (Robaxin) 750 MG tablet Indications: Degeneration, intervertebral disc, lumbar TAKE 1 TABLET BY MOUTH 4 TIMES A DAY NEEDED FOR MUSCLE SPASMS 60 tablet 2 03/16/2024 Active Multiple Vitamins-Minerals (MULTIVITAMIN ADULTS 50+ PO) (5 sources) Multiple Vitamins-Minerals (MULTIVITAMIN ADULTS 50+ PO) Take by mouth Active Multiple Vitamin s-Minerals (MULTIVITAMIN ADULTS 50+ PO) Take by mouth 0 Active nabumetone 500 mg oral tablet (1 source) Nonsteroidal Anti-inflammatory Drug take 1 tablet by mouth in the morning nabumetone (Relafen) 500 MG tablet Take 500 mg by mouth in the morning and 500 mg before bedtime. 0 Active prazosin 5 mg oral capsule (6 sources) alpha-Adrenergic Samuel Start: 05-21-20 take 1 capsule by mouth at bedtime prazosin (Minipress) 5 MG capsule Indications: Primary insomnia Take 1 capsule (5 mg) by mouth at bedtime 90 capsule 3 05/21/2024 Active Start: 05-21-2024 take 1 capsule by mo uth at bedtime prazosin (Minipress) 5 MG capsule Indications: Primary insomnia Take 1 capsule (5 mg) by mouth at bedtime 90 capsule 3 05/21/2024 Active Start: 03-09-2024 End: 05-21-2024 take 1 capsule by mouth at bedtime prazosin (Minipress) 2 MG capsule Indications: Primary insomnia TAKE 1 CAPSULE BY MOUTH AT BEDTIME 90 capsule 1 03/09/2024 05/21/2024 Discontinued (Reorder) risperiDONE 4 mg oral tablet (5 sources) Atypical Antipsychotic Start: 07-06-2023 take 1 tablet by mouth at bedtime risperiDONE (RisperDAL) 4 MG tablet Take 4 mg by mouth at bedtime 07/06/2023 Active sildenafil 100 mg oral tablet (5 sources) Phosphodiesterase 5 Inhibitor Start: 07-29-2023 take 1 tablet by mouth once daily as needed sildenafil (Viagra) 100 MG tablet Indications: Erectile dysfunction of organic origin Take 1 tablet (100 mg) by mouth Daily as needed for erectile dysfunction 10 tablet 3 07/29/2023 Active 10 actuat tiotropium 0.0025 mg/actuat inhalation spray (4 sources) Anticholinergic Start: 09-05-2023 Spiriva Respimat 2.5 MCG/ACT inhaler 1 (one) time each day at the same time 09/05/2023 Active 7 actuat umeclidinium 0.0625 mg/actuat dry powder inhaler (1 source) Anticholinergic Umeclidinium [place] (Incruse Ellipta) 62.5 MCG/ACT aerosol powder Inhale 0 Active Problems Active Problems Problem Classification Problem Date Documented Date Episodic/Chronic Anxiety disorders (9 sources) Anxiety disorder, unspecified; Translations: [Generalized anxiety disorder] Onset: 05-10-2021 07-29-2023 Chronic Chronic obstructive pulmonary disease and bronchiectasis (13 sources) Chronic obstructive pulmonary disease, unspecified; Translations: [Chronic obstructive lung disease] Onset: 07-21-2021 Resolved: 11-14-2023 07-29-2023 Chronic Diabetes mellitus without complication (7 sources) Prediabetes; Translations: [Prediabetes] Onset: 07-29-2023 07-29-2023 Episodic Disorders of lipid metabolism (12 sources) Hyperlipidemia, unspecified; Translations: [Dyslipidemia] Onset: 04-10-2021 Chronic E Codes: Natural/environment (1 source) Overexertion from prolonged static or awkward postures, initial encounter; Translations: [OVEREXERT PROLNG STAT/AWK PST INIT] Onset: 02-06-2022 Episodic Miscellaneous mental health disorders (6 sources) Primary insomnia; Translations: [Primary insomnia] Onset: 07-29-2023 11-14-2023 Chronic Other aftercare (3 sources) 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; Translations: [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 CURRENT DRUG THERAPY] Onset: 07-21-2021 Episodic Other aftercare (4 sources) Long-term current use of drug therapy; Translations: [Other nursing home (current) drug therapy] Onset: 05-21-2024 05-21-2024 Episodic Other male genital disorders (5 sources) Secondary erectile dysfunction; Translations: [Male erectile dysfunction, unspecified] Onset: 07-29-2023 07-29-2023 Chronic Other nervous system disorders (1 source) Other chronic pain; Translations: [OTHER CHRONIC PAIN] Onset: 07-21-2021 Chronic Other screening for suspected conditions (not mental disorders or infectious disease) (5 sources) Encounter for screening for malignant neoplasm of prostate; Translations: [Patient encounter status] Onset: 04-25-2021 05-21-2024 Episodic Pathological fracture (1 source) Personal history of (healed) other pathological fracture; Translations: [PERS HX HEALED OTH PATHOLOGICAL FX] Onset: 02-06-2022 Episodic Residual codes; unclassified (1 source) Persistent insomnia; Translations: [Insomnia, unspecified] Onset: 07-29-2023 07-29-2023 Episodic Schizophrenia and other psychotic disorders (8 sources) Schizophrenia, unspecified; 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] Onset: 05-10-2021 07-29-2023 Chronic Spondylosis; intervertebral disc disorders; other back problems (12 sources) Other intervertebral disc degeneration, lumbar region; Translations: [Degeneration of lumbar intervertebral disc] Onset: 09-28-2021 Chronic Spondylosis; intervertebral disc disorders; [...] [CHEST PAIN UNSPECIFIED] Onset: 05-08-2021 Episodic Other connective tissue disease (5 sources) Ganglion cyst of left wrist; Translations: [Ganglion, left wrist] Onset: 07-29-2023 07-29-2023 Episodic Other non-traumatic joint disorders (5 sources) Pain in right knee; Translations: [Pain in joint, lower leg] Onset: 07-29-2023 07-29-2023 Episodic Other non-traumatic joint disorders (5 sources) Instability of joint of right knee; Translations: [Other instability, right knee] Onset: 07-29-2023 07-29-2023 Episodic Pneumonia (except that caused by tuberculosis or sexually transmitted disease) (5 sources) Pneumonia; Translations: [Pneumonia, unspecified organism] Onset: 07-29-2023 Resolved: 05-21-2024 07-29-2023 Episodic Residual codes; unclassified (6 sources) Edema of lower extremity; Translations: [Localized edema] Onset: 07-29-2023 07-29-2023 Episodic Respiratory failure; insufficiency; arrest (adult) (5 sources) Acute respiratory failure; Translations: [Acute respiratory failure with hypoxia] Onset: 07-29-2023 Resolved: 05-21-2024 07-29-2023 Episodic Substance-related disorders (1 source) Cannabis use, unspecified, uncomplicated; Translations: [CANNABIS USE UNS UNCOMPLICATED] Onset: 05-10-2021 Episodic Unclassified (1 source) LOW BACK PAIN, UNSPECIFIED; Translations: [LOW BACK PAIN, UNSPECIFIED] Onset: 08-13-2021 Results Test Name Value Interpretation Reference Range Facility ALL HEMOGLOBINon 09-18-2023 Hemoglobin (Bld) [Mass/Vol] 15.1 g/dL 14.0 - 18.0 g/dL [facility] CBC AUTO DIFFon 02-03-2022 BASO # 0.1 103/ul Normal 0.0-0.1 [facility] Comment on above: Performed By: #### C BC #### [facility] [address] [place] [address] Dr. Mike Lynn Basophils/100 WBC (Bld) 0.4 % Normal 0.2-2.0 [facility] Comment on above: Performed By: #### C BC #### [facility] [address] [place] [address] Dr. Mike Lynn EO # 0.2 103/ul Normal 0.0-0.7 [facility] Comment on above: Performed By: #### C BC #### [facility] [address] [place] [address] Dr. Mike Lynn Eosinophils/100 WBC (Bld) 1.8 % Normal 0.9-7.0 [facility] Comment on above: Performed By: #### C BC #### [facility] [address] [place] [address] Dr. Mike Lynn Erythrocyte distribution width (RBC) [Ratio] 12.7 % Normal 11.0-15.0 [facility] Comment on above: Performed By: #### C BC #### [facility] [address] [place] [address] Dr. Mike Lynn Hematocrit (Bld) [Volume fraction] 42.9 % Normal 42.0-54.0 [facility] Comment on above: Performed By: #### C BC #### [facility] [address] [place] [address] Dr. Mike Lynn Hemoglobin (Bld) [Mass/Vol] 14.5 g/dL Normal 14.0-18.0 [facility] Comment on above: Performed By: #### C BC #### [facility] [address] [place] [address] Dr. Mike Lynn IG # 0.03 10e3/ul Normal 0.00-0.03 [facility] Comment on above: Performed By: #### C BC #### [facility] [address] [place] [address] Dr. Mike Lynn IG % 0.3 % Normal 0.0-0.5 [facility] Comment on above: Performed By: #### C BC #### [facility] [address] [place] [address] Dr. Mike Lynn LYMPH # 3.5 103/ul Normal 1.2-3.8 [facility] Comment on above: Performed By: #### C BC #### [facility] [address] [place] [address] Dr. Mike Lynn Lymphocytes/100 WBC (Bld) 29.6 % Normal 20.5-60.0 [facility] Comment on above: Performed By: #### C BC #### [facility] [address] [place] [address] Dr. Mike Lynn MANUAL DIFF REQ NO Normal [facility] Comment on above: Performed By: #### C BC #### [facility] [address] [place] [address] Dr. Mike Lynn MCH (RBC) [Entitic mass] 31.9 pg Normal 25.9-34.0 [facility] Comment on above: Performed By: #### C BC #### [facility] [address] [place] [address] Dr. Mike Lynn MCHC (RBC) [Mass/Vol] 33.8 g/dL Normal 29.9-35.2 [facility] Comment on above: Performed By: #### C BC #### [facility] [address] [place] [address] Dr. Mike Lynn MCV (RBC) [Entitic vol] 94.3 fL Critically high 80.0-94.0 [facility] Comment on above: Performed By: #### C BC #### [facility] [address] [place] [address] Dr. Mike Lynn MONO # 0.9 103/ul Critically high 0.3-0.8 [facility] Comment on above: Performed By: #### C BC #### [facility] [address] [place] [address] Dr. Mike Lynn Monocytes/100 WBC (Bld) 7.8 % Normal 1.7-12.0 [facility] Comment on above: Performed By: #### C BC #### [facility] [address] [place] [address] Dr. Mike Lynn NEUT # 7.2 103/ul Critically high 1.4-6.5 [facility] Comment on above: Performed By: #### C BC #### [facility] [address] [place] [address] Dr. Mike Lynn Neutrophils/100 WBC (Bld) 60.1 % Normal 43.0-75.0 [facility] Comment on above: Performed By: #### C BC #### [facility] [address] [place] [address] Dr. Mike Lynn Platelet mean volume (Bld) [Entitic vol] 9.3 fL Critically low 9.5-13.5 [facility] Comment on above: Performed By: #### C BC #### [facility] [address] [place] [address] Dr. Mike Lynn PLT 218 103/ul Normal 150-450 [facility] Comment on above: Performed By: #### C BC #### [facility] [address] [place], [place] [id number] Dr. Mike Lynn RBC 4.55 106/ul Critically low 4.70-6.10 [facility] Comment on above: Performed By: #### C BC #### [facility] [address] [place] [address] Dr. Mike Lynn WBC 11.9 103/ul Critically high 4.0-11.0 [facility] Comment on above: Performed By: #### C BC #### [facility] [address] [place], [place] [address] LSPINE WO CONon 2 CT LSPINE WO CON EXAM: CT LSPINE [...] Marcy MEDINA Date: 2022-02-03 00:41 Normal [facility] PROF 14(COMP METB)on 022 Albumin [Mass/Vol] 3.5 g/dL Normal 3.4-5.0 [facility] Comment on above: Performed By: #### C MP #### [facility] [address] [place], [place] [address] Dr. Mike Lynn Albumin/Globulin [Mass ratio] 1.1 {ratio} Normal [facility] Comment on above: Performed By: #### C MP #### [facility] [address] [place], [place] [address] Dr. Mike Lynn ALP [Catalytic activity/Vol] 65 U/L Normal 46-116 [facility] Comment on above: Performed By: #### C MP #### [facility] [address] [address] [address] Mike Lynn ALT [Catalytic activity/Vol] 20 U/L Normal 16-63 [facility] Comment on above: Performed By: #### C MP #### [facility] [address] [address] [address] Mike Lynn Anion gap [Moles/Vol] 11.1 mmol/L Normal [facility] Comment on above: Performed By: #### C MP #### [facility] [address] [address] [address] Mike Lynn AST [Catalytic activity/Vol] 12 U/L Critically low 15-37 [facility] Comment on above: Performed By: #### C MP #### [facility] [address] [address] [address] Mike Lynn Bilirubin [Mass/Vol] 0.3 mg/dL Normal 0.2-1.0 [facility] Comment on above: Performed By: #### C MP #### [facility] [address] [address] [address] Mike Lynn Calcium [Mass/Vol] 8.9 mg/dL Normal 8.5-10.1 [facility] Comment on above: Performed By: #### C MP #### [facility] [address] [address] [address] Mike Lynn Chloride [Moles/Vol] 104 mmol/L Normal 98-107 [facility] Comment on above: Performed By: #### C MP #### [facility] [address] [address] [address] Mike Lynn CO2 [Moles/Vol] 31.3 mmol/L Normal 21.0-32.0 [facility] Comment on above: Performed By: #### C MP #### [facility] [address] [address] [address] Mike Lynn Creatinine [Mass/Vol] 1.49 mg/dL Critically high 0.70-1.30 [facility] Comment on above: Performed By: #### C MP #### [facility] [address] [address] [address] Mike Lynn EGFR-AF [place] 60 mL/min/1.73m2 Normal >=60 [facility] Comment on above: Performed By: #### C MP #### [facility] [address] [address] [address] Mike Lynn EGFR-NON AF [place] 50 mL/min/1.73m2 Critically low >=60 [facility] Comment on above: Performed By: #### C MP #### [facility] [address] [address] [address] Mike Lynn Globulin (S) [Mass/Vol] 3.3 g/dL Normal [facility] Comment on above: Performed By: #### C MP #### [facility] [address] [address] [address] Mike Lynn Glucose [Mass/Vol] 115 mg/dL Critically high 74-106 [facility] Comment on above: Performed By: #### C MP #### [facility] [address] [address] [address] Mike Lynn Potassium [Moles/Vol] 3.4 mmol/L Critically low 3.5-5.1 [facility] Comment on above: Performed By: #### C MP #### [facility] [address] [address] [address] Mike Lynn Protein [Mass/Vol] 6.8 g/dL Normal 6.4-8.2 [facility] Comment on above: Performed By: #### C MP #### [facility] [address] [address] [address] Mike Lynn Sodium [Moles/Vol] 143 mmol/L Normal 136-145 [facility] Comment on above: Performed By: #### C MP #### [facility] [address] [address] [address] Mike Lynn Urea nitrogen [Mass/Vol] 9.0 mg/dL Normal 7.0-18.0 [facility] Comment on above: Performed By: #### C MP #### [facility] [address], [place] [address] Dr. Mike Lynn Urea nitrogen/Creatinine [Mass ratio] 6.0 mg/mg Normal [facility] Comment on above: Performed By: #### C MP #### [facility] [address], [place] [address] Dr. Mike Lynn MRI LSPINE WO CONon [...] by: RICCARDO ROJAS Date: 2021-09-28 15:57 Normal [facility] XR LSPINE 2_3 VIEWSon 2020 XR LSPINE [...] RICCARDO ROJAS Date: 2021-07-25 10:20 Normal [facility] BNPon 05-08-2021 Natriuretic peptide B (Bld) [Mass/Vol] 127.0 pg/mL Normal <=900.0 [facility] Comment on above: Performed By: #### C MP, BNP, HSTROPN #### [facility] [address] [place] [address] Dr. Mike Lynn CBC AUTO DIFFon 05-08-2021 BASO # 0.1 103/ul Normal 0.0-0.1 [facility] Comment on above: Performed By: #### E RUR #### [facility] [address] [place] [address] Dr. Mike Lynn Basophils/100 WBC (Bld) 0.4 % Normal 0.2-2.0 [facility] Comment on above: Performed By: #### E RUR #### [facility] [address] [address] [address] Mike Lynn EO # 0.0 103/ul Normal 0.0-0.7 [facility] Comment on above: Performed By: #### E RUR #### [facility] [address] [address] [address] Mike Lynn Eosinophils/100 WBC (Bld) 0.2 % Critically low 0.9-7.0 [facility] Comment on above: Performed By: #### E RUR #### [facility] [address] [place] [address] Dr. Mike Lynn Erythrocyte distribution width (RBC) [Ratio] 12.7 % Normal 11.0-15.0 [facility] Comment on above: Performed By: #### E RUR #### [facility] [address] [place] [address] Dr. Mike Lynn Hematocrit (Bld) [Volume fraction] 45.0 % Normal 42.0-54.0 [facility] Comment on above: Performed By: #### E RUR #### [facility] [address] [place] [address] Dr. Mike Lynn Hemoglobin (Bld) [Mass/Vol] 15.3 g/dL Normal 14.0-18.0 [facility] Comment on above: Performed By: #### E RUR #### [facility] [address] [place] [address] Dr. Mike Lynn IG # 0.10 10e3/ul Critically high 0.00-0.03 [facility] Comment on above: Performed By: #### E RUR #### [facility] [address] [place] [address] Dr. Mike Lynn IG % 0.5 % Normal 0.0-0.5 [facility] Comment on above: Performed By: #### E RUR #### [facility] [address] [place] [address] Dr. Mike Lynn LYMPH # 5.2 103/ul Critically high 1.2-3.8 [facility] Comment on above: Performed By: #### E RUR #### [facility] [address] [place] [address] Dr. Mike Lynn Lymphocytes/100 WBC (Bld) 26.4 % Normal 20.5-60.0 [facility] Comment on above: Performed By: #### E RUR #### [facility] [address] [place] [address] Dr. Mike Lynn MANUAL DIFF REQ NO Normal [facility] Comment on above: Performed By: #### E RUR #### [facility] [address] [place] [address] Dr. Mike Lynn MCH (RBC) [Entitic mass] 31.2 pg Normal 25.9-34.0 [facility] Comment on above: Performed By: #### E RUR #### [facility] [address] [place] [address] Dr. Mike Lynn MCHC (RBC) [Mass/Vol] 34.0 g/dL Normal 29.9-35.2 [facility] Comment on above: Performed By: #### E RUR #### [facility] [address] [place] [address] Dr. Mike Lynn MCV (RBC) [Entitic vol] 91.8 fL Normal 80.0-94.0 [facility] Comment on above: Performed By: #### E RUR #### [facility] [address] [place] [address] Dr. Mike Lynn MONO # 1.4 103/ul Critically high 0.3-0.8 [facility] Comment on above: Performed By: #### E RUR #### [facility] [address] [place] [address] Dr. Mike Lynn Monocytes/100 WBC (Bld) 7.0 % Normal 1.7-12.0 [facility] Comment on above: Performed By: #### E RUR #### [facility] [address] [place] [address] Dr. Mike Lynn NEUT # 12.9 103/ul Critically high 1.4-6.5 [facility] Comment on above: Performed By: #### E RUR #### [facility] [address] [place] [address] Dr. Mike Lynn Neutrophils/100 WBC (Bld) 65.5 % Normal 43.0-75.0 [facility] Comment on above: Performed By: #### E RUR #### [facility] [address] [place] [address] Dr. Mike Lynn Platelet mean volume (Bld) [Entitic vol] 9.9 fL Normal 9.5-13.5 [facility] Comment on above: Performed By: #### E RUR #### [facility] [address] [place] [address] Dr. Mike Lynn PLT 244 103/ul Normal 150-450 [facility] Comment on above: Performed By: #### E RUR #### [facility] [address] [address] [address] Mike Lynn RBC 4.90 106/ul Normal 4.70-6.10 [facility] Comment on above: Performed By: #### E RUR #### [facility] [id number] Mike Lynn WBC 19.7 103/ul Critically high 4.0-11.0 [facility] Comment on above: Performed By: #### E RUR #### [facility] [address] [address] [address] Mike Lynn Covid-19 PCR ([facility])on 04-13 SARS-CoV-2 (COVID-19) RNA MECHE+probe Ql (Unsp spec) Not detected Normal NOT DETECTED [facility] Comment on above: Result Comment: This test is not yet approved or cleared by the [place] FDA. When there are no FDA-approved or cleared tests available, and other criteria are met, FDA can make tests available under an emergency access mechanism called an Emergency Use Authorization (EUA). The EUA for this test is supported by the [place] of Health and Human Service's (HHS's) declaration [...] SARS-CoV-2. Performed By: #### E RUR #### [facility] [address] [place] [address] [id number] [address] Mike Lynn ER URINE PROFILEon Bilirubin Ql (U) Negative Normal NEGATIVE [facility] Comment on above: Performed By: #### E RUR #### [facility] [address] [place] [address] Dr. Mike Lynn Clarity (U) CLEAR Normal CLEAR [facility] Comment on above: Performed By: #### E RUR #### [facility] [address] [place] [address] Dr. Mike Lynn Color (U) YELLOW Normal YELLOW [facility] Comment on above: Performed By: #### E RUR #### [facility] [address] [place] [address] Dr. Mike BARR A micrscopic examination will be performed if indicated. Normal [facility] Comment on above: Performed By: #### E RUR #### [facility] [address] [place] [address] Dr. Mike Lynn Glucose Ql (U) Negative Normal NEGATIVE The [facility] Comment on above: Performed By: #### E RUR #### [facility] [address] [place] [address] Dr. Mike Lynn Hemoglobin Ql (U) Negative Normal NEGATIVE [facility] Comment on above: Performed By: #### E RUR #### [facility] [address] [place] [address] Dr. Mike Lynn Ketones Ql (U) TRACE Abnormal NEGATIVE [facility] Comment on above: Performed By: #### E RUR #### [facility] [address] [place] [address] Dr. Mike Lynn LEUKOCYTES Negative Normal NEGATIVE [facility] Comment on above: Performed By: #### E RUR #### [facility] [address] [place] [address] Dr. Mike Lynn Nitrite Ql (U) Negative Normal NEGATIVE [facility] Comment on above: Performed By: #### E RUR #### [facility] [address] [place] [address] Dr. Mike Lynn pH (U) 7.5 [pH] Normal 5-9 [facility] Comment on above: Performed By: #### E RUR #### [facility] [address] [place] [address] Dr. Mike Lynn SPEC GRAVITY 1.020 Normal 1.005-<=1.025 [facility] Comment on above: Performed By: #### E RUR #### [facility] [address] [place] [address] Dr. Mike Lynn UA PROTEIN Negative Normal NEGATIVE/ TRACE [facility] Comment on above: Performed By: #### E RUR #### [facility] [address] [place] [address] Dr. Mike Lynn UR MICRO IND NOT INDICATED Normal [facility] Comment on above: Performed By: #### E RUR #### [facility] [address] [place] [address] Dr. Mike Lynn Urobilinogen Qn (U) 0.2 {Gonzalo'U}/dL Normal 0.2 - 1. 0 [facility] Comment on above: Performed By: #### E RUR #### [facility] [address] [place] [address] Dr. Mike Lynn PROF 14(COMP METB)on 021 Albumin [Mass/Vol] 4.1 g/dL Normal 3.5-5.0 [facility] Comment on above: Performed By: #### C MP, BNP, HSTROPN #### [facility] [address] [place] [address] Dr. Mike Lynn Albumin/Globulin [Mass ratio] 1.1 {ratio} Normal [facility] Comment on above: Performed By: #### C MP, BNP, HSTROPN #### [facility] [address] [place] [address] Dr. Mike Lynn ALP [Catalytic activity/Vol] 75 U/L Normal 38-126 [facility] Comment on above: Performed By: #### C MP, BNP, HSTROPN #### [facility] [address] [place] [address] Dr. Mike Lynn ALT [Catalytic activity/Vol] 20 U/L Critically low 21-72 [facility] Comment on above: Performed By: #### C MP, BNP, HSTROPN #### [facility] [address] [address] [address] Mike Lynn Anion gap [Moles/Vol] 13.3 mmol/L Normal [facility] Comment on above: Performed By: #### C MP, BNP, HSTROPN #### [facility] [address] [address] [address] Mike Lynn AST [Catalytic activity/Vol] 19 U/L Normal 17-59 [facility] Comment on above: Performed By: #### C MP, BNP, HSTROPN #### [facility] [address] [address] [address] Mike Lynn Bilirubin [Mass/Vol] 0.4 mg/dL Normal 0.2-1.3 [facility] Comment on above: Performed By: #### C MP, BNP, HSTROPN #### [facility] [address] [place] [address] Dr. Mike Lynn Calcium [Mass/Vol] 9.4 mg/dL Normal 8.4-10.2 [facility] Comment on above: Performed By: #### C MP, BNP, HSTROPN #### [facility] [address] [place] [address] Dr. Mike Lynn Chloride [Moles/Vol] 104 mmol/L Normal 98-107 [facility] Comment on above: Performed By: #### C MP, BNP, HSTROPN #### [facility] [address] [place] [address] Dr. Mike Lynn CO2 [Moles/Vol] 25.9 mmol/L Normal 22.0-30.0 [facility] Comment on above: Performed By: #### C MP, BNP, HSTROPN #### [facility] [address] [place] [address] Dr. Mike Lynn Creatinine [Mass/Vol] 1.29 mg/dL Critically high 0.66-1.25 [facility] Comment on above: Performed By: #### C MP, BNP, HSTROPN #### [facility] [address] [place] [address] Dr. Mike Lynn EGFR-AF COSTA RICAN >60 Normal >=60 [facility] Comment on above: Performed By: #### C MP, BNP, HSTROPN #### [facility] [address] [place] [address] Dr. Mike Lynn EGFR-NON AF COSTA RICAN 59 mL/min/1.73m2 Critically low >=60 [facility] Comment on above: Performed By: #### C MP, BNP, HSTROPN #### [facility] [address] [address] [address] Mike Lynn Globulin (S) [Mass/Vol] 3.8 g/dL Normal [facility] Comment on above: Performed By: #### C MP, BNP, HSTROPN #### [facility] [address] [place] [address] Dr. Mike Lynn Glucose [Mass/Vol] 99 mg/dL Normal 74-106 [facility] Comment on above: Performed By: #### C MP, BNP, HSTROPN #### [facility] [address] [place] [address] Dr. Mike Lynn Potassium [Moles/Vol] 3.2 mmol/L Critically low 3.4-5.0 [facility] Comment on above: Performed By: #### C MP, BNP, HSTROPN #### [facility] [address] [place] [address] Dr. Mike Lynn Protein [Mass/Vol] 7.9 g/dL Normal 6.1-8.2 [facility] Comment on above: Performed By: #### C MP, BNP, HSTROPN #### [facility] [address] [place] [address] Dr. Mike Lynn Sodium [Moles/Vol] 140 mmol/L Normal 137-145 [facility] Comment on above: Performed By: #### C MP, BNP, HSTROPN #### [facility] [address] [place] [address] Dr. Mike Lynn Urea nitrogen [Mass/Vol] 9.0 mg/dL Normal 9.0-20.0 [facility] Comment on above: Performed By: #### C MP, BNP, HSTROPN #### [facility] [address] [place] [address] Dr. Mike Lynn Urea nitrogen/Creatinine [Mass ratio] 7.0 mg/mg Normal [facility] Comment on above: Performed By: #### C MP, BNP, HSTROPN #### [facility] [address] [place] [address] Dr. Mike Lynn PROTIMEon 05-08-2021 INR Coag (PPP) [Relative time] 0.97 {INR} Normal [facility] Comment on above: Performed By: #### E RUR #### [facility] [address] [place] [address] Dr. Mike Lynn INR GUIDELINES SEE BELOW Normal The [facility] Comment on above: Result Comment: JEROME RED INR: 2.0 - 3.0 CONDITIONS NOT LISTED BELOW 2.5 - 3.5 FOR PROSTHETIC HEART VALVE REPLACEMENT 2.5 - 3.5 RECURRENT THROMBOSIS Performed By: #### E RUR #### [facility] [address] [place] [address] Dr. Mike Lynn PT Coag (PPP) [Time] 10.5 s Normal 9.0-11.6 [facility] Comment on above: Performed By: #### E RUR #### [facility] [address] [place] [address] Dr. Mike Lynn PTTon 05-08-2021 aPTT Coag (Bld) [Time] 26.2 s Normal 22.3-36.2 [facility] Comment on above: Performed By: #### E RUR #### [facility] [address] [place] [address] Dr. Mike Lynn SYMPTOMATIC COVID-19 ANTIGEN on 05-08-2021 EUA Statement SEE BELOW Normal [facility] Comment on above: Result Comment: [...] sooner. Performed By: #### E RUR #### [facility] [address] [place] [address] Dr. Mike Lynn SARS-CoV-2 (COVID-19) RNA MECHE+probe Ql (Unsp spec) Negative Normal NEGATIVE [facility] Comment on above: Result Comment: CONF IRMATION BY PCR PENDING PER CDC GUIDELINES/ SYMPTOMATIC PATIENT. Performed By: #### E RUR #### [facility] [address] [place] [address] Dr. Mike Lynn TROPONIN, HIGH SENSITIVITYon 05-08-2021 HSTROP 7.9 pg/mL Normal 4.0-42.2 [facility] Comment on above: Result Comment: CUT- OFF POINTS HAVE BEEN ESTABLISHED BASED ON THE FOURTH UNIVERSAL DEFINITIONS OF MYOCARDIAL INFARCTION. THE UPPER REFERENCE LIMIT (URL) OF TROPONIN, DEFINED THE 99TH PERCENTILE OF cTnI DISTRIBUTION IN A REFERENCE POPULATION, HAS BEEN CONFIRMED THE DECISION THRESHOLD FOR [place] DIAGNOSIS. Performed By: #### A 1C #### [facility] [address] [place] [address] Claribel Avila HSTROP 7.8 pg/mL Normal 4.0-42.2 [facility] Comment on above: Result Comment: CUT- OFF POINTS HAVE BEEN ESTABLISHED BASED ON THE FOURTH UNIVERSAL DEFINITIONS OF MYOCARDIAL INFARCTION. THE UPPER REFERENCE LIMIT (URL) OF TROPONIN, DEFINED THE 99TH PERCENTILE OF cTnI DISTRIBUTION IN A REFERENCE POPULATION, HAS BEEN CONFIRMED THE DECISION THRESHOLD FOR TN DIAGNOSIS. Performed By: #### C MP, BNP, HSTROPN #### [facility] [address] [place] [address] Dr. Mike Lynn XR CHEST 1 Von [...] JESSENIA CORBETT Date: 2021-05-08 17:45 Normal [facility] CBC AUTO DIFFon 04-10-2021 BASO # 0.1 103/ul Normal 0.0-0.1 [facility] Comment on above: Performed By: #### C BC #### [facility] [address] [place], [place] [id number] Claribel Margarita Basophils/100 WBC (Bld) 0.6 % Normal 0.2-2.0 [facility] Comment on above: Performed By: #### C BC #### [facility] [address] [place] [address] Claribel Margarita EO # 0.3 103/ul Normal 0.0-0.7 [facility] Comment on above: Performed By: #### C BC #### [facility] [address] [place] [address] Claribel Margarita Eosinophils/100 WBC (Bld) 2.2 % Normal 0.9-7.0 [facility] Comment on above: Performed By: #### C BC #### [facility] [address] [place] [address] Claribel Margarita Erythrocyte distribution width (RBC) [Ratio] 13.1 % Normal 11.0-15.0 [facility] Comment on above: Performed By: #### C BC #### [facility] [address] [place], [place] [id number] Claribel Margarita Hematocrit (Bld) [Volume fraction] 44.2 % Normal 42.0-54.0 [facility] Comment on above: Performed By: #### C BC #### [facility] [address] [place], [place] [id number] Claribel Margarita Hemoglobin (Bld) [Mass/Vol] 14.3 g/dL Normal 14.0-18.0 [facility] Comment on above: Performed By: #### C BC #### [facility] [address] [id number] Claribel Margarita IG # 0.07 10e3/ul Critically high 0.00-0.03 [facility] Comment on above: Performed By: #### C BC #### [facility] [address] [id number] Claribel Margarita IG % 0.5 % Normal 0.0-0.5 [facility] Comment on above: Performed By: #### C BC #### [facility] [address] [id number] Claribel Margarita LYMPH # 3.9 103/ul Critically high 1.2-3.8 [facility] Comment on above: Performed By: #### C BC #### [facility] [address] [place] [address] Claribel Margarita Lymphocytes/100 WBC (Bld) 29.6 % Normal 20.5-60.0 [facility] Comment on above: Performed By: #### C BC #### [facility] [address] [place] [address] Claribel Margarita MANUAL DIFF REQ NO Normal [facility] Comment on above: Performed By: #### C BC #### [facility] [address] [place], [place] [id number] Claribel Margarita MCH (RBC) [Entitic mass] 31.5 pg Normal 25.9-34.0 [facility] Comment on above: Performed By: #### C BC #### [facility] [address] [place] [address] Claribel Margarita MCHC (RBC) [Mass/Vol] 32.4 g/dL Normal 29.9-35.2 [facility] Comment on above: Performed By: #### C BC #### [facility] [address] [place], [place] [address] Claribel Margarita MCV (RBC) [Entitic vol] 97.4 fL Critically high 80.0-94.0 [facility] Comment on above: Performed By: #### C BC #### [facility] [address] [place] [address] Claribel Avila MONO # 0.8 103/ul Normal 0.3-0.8 [facility] Comment on above: Performed By: #### C BC #### [facility] [address] [id number] Claribel Avila Monocytes/100 WBC (Bld) 6.2 % Normal 1.7-12.0 [facility] Comment on above: Performed By: #### C BC #### [facility] [address] [address] Claribel Avila NEUT # 8.1 103/ul Critically high 1.4-6.5 [facility] Comment on above: Performed By: #### C BC #### [facility] [address] [place] [address] Claribel Avila Neutrophils/100 WBC (Bld) 60.9 % Normal 43.0-75.0 [facility] Comment on above: Performed By: #### C BC #### [facility] [address] [place] [address] Claribel Avila Platelet mean volume (Bld) [Entitic vol] 10.3 fL Normal 9.5-13.5 [facility] Comment on above: Performed By: #### C BC #### [facility] [address] [place] [address] Claribel Avila PLT 219 103/ul Normal 150-450 [facility] Comment on above: Performed By: #### C BC #### [facility] [address] [place], [place] [address] Claribel Avila RBC 4.54 106/ul Critically low 4.70-6.10 [facility] Comment on above: Performed By: #### C BC #### [facility] [address] [place], [place] [address] Claribeltoyin Deckeren WBC 13.3 103/ul Critically high 4.0-11.0 [facility] Comment on above: Performed By: #### C BC #### [facility] [address] [place], [place] [address] Claribel Avila GLYCOHEMOGLOBIN A1Con 2020 ADA RECOMMENDATION ADA THERAPEUTIC TARG ET 6.0 - 7.0 ACTION SUGGESTED > 7.0 Normal [facility] Comment on above: Performed By: #### A 1C #### [facility] [address] [id number] Claribel Avila Glucose [Mass/Vol] 117 mg/dL Normal [facility] Comment on above: Performed By: #### A 1C #### [facility] [address] [id number] Claribel Avila HbA1c (Bld) [Mass fraction] 5.7 % Normal <=6.0 [facility] Comment on above: Performed By: #### A 1C #### [facility] [address] [place] [address] Claribel Avila LIPID PROFILEon 04-10-2021 CHOL-HDL RATIO NORM SEE BELOW Normal [facility] Comment on above: Result Comment: 3.3 - 4.4 LOW RISK 4.4 - 7.1 AVERAGE RISK 7.1 - 11.0 MODERATE RISK >11.0 HIGH RISK Performed By: #### E RUR #### [facility] [address] [place] [address] Dr. Mike Lynn Cholesterol [Mass/Vol] 263 mg/dL Critically high <=200 [facility] Comment on above: Performed By: #### E RUR #### [facility] [address] [place] [address] Dr. Mike Lynn Cholesterol in HDL [Mass/Vol] 42 mg/dL Normal [facility] Comment on above: Performed By: #### E RUR #### [facility] [address] [address] [address] Mike Lynn Cholesterol in LDL [Mass/Vol] 170.2 mg/dL Normal [facility] Comment on above: Performed By: #### E RUR #### [facility] [address] [place] [address] Dr. Mike Lynn Cholesterol.total/Ch olesterol in HDL [Mass ratio] 6.3 {ratio} Normal [facility] Comment on above: Performed By: #### E RUR #### [facility] [address] [address] [address] Mike Lynn HDL NORMAL > or = 60 mg/dl - LO W CARDIOVASCULAR RISK <40 mg/dl - HIGH CARDIOVASCULAR RISK Normal [facility] Comment on above: Performed By: #### E RUR #### [facility] [address] [address] [address] Mike Lynn LDL CALC NORMAL SEE BELOW Normal [facility] Comment on above: Result Comment: <100 mg/dl OPTIMAL 100 - 129 mg/dl NEAR OR ABOVE OPTIMAL 130 - 159 mg/dl BORDERLINE HIGH 160 - 189 mg/dl HIGH >190 mg/dl VERY HIGH Performed By: #### E RUR #### [facility] [address] [address] [address] Mike Lynn Triglyceride [Mass/Vol] 254 mg/dL Critically high <=150 [facility] Comment on above: Performed By: #### E RUR #### [facility] [address] [place] [address] Dr. Mike Lynn VLDL CALC 50.8 mg/dL Normal [facility] Comment on above: Performed By: #### E RUR #### [facility] [address] [address] [address] Mike Lynn PROF CHEM 8 (BAS METB)on Anion gap [Moles/Vol] 10.7 mmol/L Normal [facility] Comment on above: Performed By: #### E RUR #### [facility] [address] [address] [address] Mike Lynn Calcium [Mass/Vol] 9.0 mg/dL Normal 8.4-10.2 [facility] Comment on above: Performed By: #### E RUR #### [facility] [address] [address] [address] Mike Lynn Chloride [Moles/Vol] 104 mmol/L Normal 98-107 [facility] Comment on above: Performed By: #### E RUR #### [facility] [address] [address] [address] Mike Lynn CO2 [Moles/Vol] 31.1 mmol/L Critically high 22.0-30.0 [facility] Comment on above: Performed By: #### E RUR #### [facility] [address] [address] [address] Mike Lynn Creatinine [Mass/Vol] 1.18 mg/dL Normal 0.66-1.25 [facility] Comment on above: Performed By: #### E RUR #### [facility] [address] [address] [address] Mike Lynn EGFR-AF COSTA RICAN >60 Normal >=60 [facility] Comment on above: Performed By: #### E RUR #### [facility] [address] [address] [address] Mike Lynn EGFR-NON AF COSTA RICAN >60 Normal >=60 [facility] Comment on above: Performed By: #### E RUR #### [facility] [address] [address] [address] Mike Lynn Glucose [Mass/Vol] 86 mg/dL Normal 74-106 [facility] Comment on above: Performed By: #### E RUR #### [facility] [address] [address] [address] Mike Lynn Potassium [Moles/Vol] 4.8 mmol/L Normal 3.4-5.0 [facility] Comment on above: Performed By: #### E RUR #### [facility] [address] [address] [address] Mike Lynn Sodium [Moles/Vol] 141 mmol/L Normal 137-145 [facility] Comment on above: Performed By: #### E RUR #### [facility] [address] [address] [address] Mike Lynn Urea nitrogen [Mass/Vol] 7.0 mg/dL Critically low 9.0-20.0 [facility] Comment on above: Performed By: #### E RUR #### [facility] [address] [place] [address] Dr[address] Mike Lynn Urea nitrogen/Creatinine [Mass ratio] 5.9 mg/mg Normal [facility] Comment on above: Performed By: #### E RUR #### [facility] [address] [place], [place] [address] Dr. Mike SEGUNDOOTon 04-10-2021 AST [Catalytic activity/Vol] 19 U/L Normal 17-59 [facility] Comment on above: Performed By: #### E RUR #### [facility] [address] [place], [place] [address] Dr. Mike Lynn SGPTon 04-10-2021 ALT [Catalytic activity/Vol] 24 U/L Normal 21-72 [facility] Comment on above: Performed By: #### E RUR #### [facility] [address] [place] [address] [address] Mike Lynn Vital Signs Date Time Vital Sign Value Performing Clinician Chago holcomb 05-21-2024 10:36-0400 Body height 174 cm Bruce Navas MD Work Phone: [facility] 05-21-2024 10:36-0400 Body mass index (BMI) [Ratio] 29.07 kg/m2 Bruce Navas MD Work Phone: [facility] 05-21-2024 10:36-0400 Body temperature 97.5 [degF] Bruce Navas MD Work Phone: [facility] 05-21-2024 10:36-0400 Body weight 88 kg Bruce Navas MD Work Phone: [facility] 05-21-2024 10:36-0400 Diastolic blood pressure 52 mm[Hg] Bruce Navas MD Work Phone: [facility] 05-21-2024 10:36-0400 Heart rate 119 /min Bruce Navas MD Work Phone: [facility] 05-21-2024 10:36-0400 Respiratory rate 20 /min Bruce Navas MD Work Phone: [facility] 05-21-2024 10:36-0400 SaO2% (BldA) [Mass fraction] 94 % Bruce Navas MD Work Phone: [facility] 05-21-2024 10:36-0400 Systolic blood pressure 100 mm[Hg] Bruce Navas MD Work Phone: [facility] Encounters Encounter Date Encounter Type Care Provider Facility Start: 05-21-2024 End: 05-21-2024 [facility] flowsheet Bruce Navas MD Work Phone: [facility] Start: 05-21-2024 End: 05-21-2024 [facility] flow[facility] Bruce Navas MD Work Phone: [facility] Start: 05-21-2024 End: 05-21-2024 Office outpatient visit 25 minutes Bruce Navas MD Work Phone: [facility] Comment on above: 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 (Primary Dx); Chronic obstructive pulmonary disease, unspecified COPD type (CMS/HCC); Schizophrenia, undifferentiated (CMS/HCC); Generalized anxiety disorder (CMS/HCC); Primary insomnia; Encounter for long-term current use of medication; Prediabetes; Screening PSA (prostate specific antigen); Dyslipidemia (CMS/HCC) Start: 05-21-2024 End: 05-21-2024 ambulatory BRUCE NAVAS Not Available Start: 05-19-2024 ambulatory Aldo Stockton acility:[facility] Start: 05-14-2024 End: 05-14-2024 Refill Bruce Navas MD Work Phone: [facility] Comment on above: Lower extremity elham a (Primary Dx); Generalized anxiety disorder (CMS/HCC) Start: 11-14-2023 End: 11-14-2023 ambulatory BRUCE NAVAS Not Available Start: 09-18-2023 Clinisync Result Encounter Gen jessenia External Data Provider [facility] Unsolicited Start: 09-18-2023 Clinisync Result Encounter Gen jessenia External Data Provider [facility] Unsolicited Start: 07-29-2023 End: 07-29-2023 ambulatory BRUCE NAVAS Not Available Start: 06-06-2022 End: 06-10-2022 ambulatory RAIMUNDO SAHA [facility] Start: 02-03-2022 End: 02-03-[address] BRUCE NAVAS Facility:[facility] Start: 09-28-2021 End: 09-29-[address] BRUCE NAVAS Facility:[facility] Start: 08-13-2021 End: 08-23-2021 ambulatory Nadia FENTONWINSTON Facility:[facility] Start: 07-27-2021 End: 08-11-2021 ambulatory RICE Nadia MOHANMAGALY Facility:[facility] Start: 07-25-2021 End: 07-26-2021 ambulatory SHAIKH Nadia GIL Facility:[facility] Start: 07-19-2021 End: 07-19-[address] BRUCE NAVAS Facility:[facility] Start: 05-08-2021 End: 05-08-[address] BRUCE NAVAS Facility:[facility] Start: 04-10-2021 End: 04-11-[address] BRUCE NAVAS Facility:[facility] Procedures Date Procedure Procedure Detail Performing Clinician Start: 09-18-2023 ALL HEMOGLOBIN Generic External Data Provider Start: 04-10-[address] BRUCE LAWTON Comment on above: Performed By: #### P [facility] #### [facility] [address] [place] [address] Claribel Avila Plan of Treatment Date Care Activity Detail Author Start: 12-06-2026 Screening for malign ant neoplasm of colon [facility] Start: 07-30-2024 End: 07-30-2024 Patient encounter procedure 07/30/2024 10:30 AM EST [facility] [address] [place] [address] Bruce Navas MD [address] [place] [address] [facility] Start: 05-21-2024 End: 05-21-2025 Basic metabolic 1998 panel - Serum or Plasma Basic metabolic panel Lab Routine Encounter for long-term current use of medication Expected: 05/21/2024 (Approximate), Expires: 05/21/2025 [facility] Comment on above: Expected: 05/21/2024 (Approximate), Expires: 05/21/2025 Start: 05-21-2024 End: 05-21-2025 CBC W Auto Differential panel - Blood CBC and differential Lab Routine Encounter for long-term current use of medication Expected: 05/21/2024 (Approximate), Expires: 05/21/2025 [facility] Comment on above: Expected: 05/21/2024 (Approximate), Expires: 05/21/2025 Start: 05-21-2024 End: 05-21-2025 Hemoglobin A1c/Hemoglobin.total in Blood Hemoglobin A1c Lab Routine Prediabetes Expected: 05/21/2024 (Approximate), Expires: 05/21/2025 [facility] Work Phone: Comment on above: Expected: 05/21/2024 (Approximate), Expires: 05/21/2025 Start: 05-21-2024 End: 05-21-2025 Hepatic function 2000 panel - Serum or Plasma Hepatic function panel Lab Routine Encounter for long-term current use of medication Expected: 05/21/2024 (Approximate), Expires: 05/21/2025 [facility] Comment on above: Expected: 05/21/2024 (Approximate), Expires: 05/21/2025 Start: 05-21-2024 End: 05-21-2025 Lipid 1996 panel - Serum or Plasma Lipid panel Lab Routine Dyslipidemia (CMS/HCC) Expected: 05/21/2024 (Approximate), Expires: 05/21/2025 [facility] Comment on above: Expected: 05/21/2024 (Approximate), Expires: 05/21/2025 Start: 05-21-2024 End: 05-21-2025 Prostate specific Ag [Mass/volume] in Serum or Plasma PSA Lab Routine Screening PSA (prostate specific antigen) Expected: 05/21/2024 (Approximate), Expires: 05/21/2025 [facility] Comment on above: Expected: 05/21/2024 (Approximate), Expires: 05/21/2025 Start: 05-21-2024 End: 05-21-2024 Patient encounter procedure [facility] Comment on above: Arrived Start: 04-12-2024 Influenza vaccination Influenza Vacc ine (#1) [facility] Start: 10-14-2023 End: 10-14-2023 Patient encounter procedure 10/14/2023 1:45 PM EST Office Visit [facility] [address] [place] [phone] Bruce Navas MD [address] [place] [phone] [facility] Start: 10-08-2023 End: 10-08-2023 Patient encounter procedure 10/08/2023 11:00 AM EST Office Visit [facility] [address] [place] [address] Bruce Navas MD [address] [place] [address] [facility] Start: 04-12-2023 Influenza vaccination Influenza Vacc ine (#1) [facility] Start: 1970 Medicare Annual Wellness (AWV) Medicare Annual Wellness (AWV) [facility] Start: 1970 Screening for malign ant neoplasm of colon [facility] Payers Date Payer Category Payer Medicare [employer] MEDICARE ADVANTAGE [employer] MEDICARE [id number] 2023-Present [address] [address] [place] [address] [id number] 2023 Medicare [id number] 2022 Self-pay 2017 Medicaid [place]ID [place] [facility] [id number] 2017-Present [phone] [address] [place] [address] Medicaid [id number] 1970 Unknown [id number] 1970 Unknown [id number] 1970 Unknown [id number] 1970 Unknown [id number] 1970 Unknown [id number] 1970 Unknown [id number] 1970 Unknown [id number] 1970 Unknown [id number] [id number] 1970 Unknown [id number] [id number] 1970 Unknown [id number] [id number] 1970 Unknown [id number] [id number] 1970 Unknown [id number] 1959 Medicaid [id number] 1959 Medicare [id number] Social History Date Type Detail Facility Start: 07-29-2023 Tobacco smoking stat [facility] Ex-smoker [facility] Start: 07-22-1993 End: 07-22-2023 History of tobacco use Current smoker [facility] Start: 07-22-1993 End: 07-22-2023 History of tobacco use Cigarette Smoker [facility] Start: 07-29-2023 End: 05-21-2024 Cigarettes smoked current (pack per day) - Reported 1 [facility] Start: 07-29-2023 End: 05-21-2024 Tobacco use and exposure Smokeless tobacco non-user [facility] Start: 07-29-2023 End: 05-21-2024 Alcohol intake Lifetime non-drinker (finding) [facility] Start: 07-29-2023 End: 05-21-2024 Tobacco use panel [facility] Start: 1970 Sex Assigned At Not on file [facility]: 07[facility]22-1993 [facility] History of Present illness Narrative 05-21-2024 Bruce Navas MD - 05/21/2024 11:07 AM Kaylan Navas MD - 05/21/2024 11:07 AM Kaylan Navas MD - 05/21/2024 11:07 AM Kaylan Navas MD - 05/21/2024 11:06 AM EDT Note Date & Type Note Facility 05-21-2024 History of Presen t illness Narrative Associated Problem(s): Schizophrenia, undifferentiated (CMS/HCC) Symptoms stable and continue medication. Follow up with psychiatry. Associated Problem(s): Primary insomnia Able to fall asleep but wakes up after several hours and increase prazosin. Associated Problem(s): Generalized anxiety disorder (CMS/HCC) Symptoms controlled with medication. Use valium PRN. Associated Problem(s): Degeneration, intervertebral disc, lumbar Pain stable and continue celebrex and robaxin. Resume home PT exercises. Associated Problem(s): COPD (chronic obstructive pulmonary disease) (CMS/HCC) Symptoms stable and continue inhalers. Follow up with pulmonology as scheduled. Images from the original note were not included. Subjective Patient ID: Edmund Brown is a 53 y.o. male who presents for Follow-up (6 m) and Hip Pain. Follow up back pain, COPD, schizophrenia, anxiety, and insomnia. Patient stable today. Mild pain in low back and across top hips. Pain radiates into left gluteal region and down left leg. Pain increased with walking and standing. Starting to have weakness in leg and feels like will give out. Using celebrex and robaxin with mild relief. Not performing home PT exercises. COPD stable. Mild SOB and cough with exertion. Occasional cough and sputum that is worse in am. Using inhalers daily and albuterol PRN. Following with pulmonology. Schizophrenia stable. Following with psychiatry. No jennifer or psychosis. Anxiety stable. Not as stressed out or overwhelmed. Not as nervous or worry as much. Not as wadsworth or irritable. Using valium PRN and helps when needed. Sleeping better with prazosin and no further nightmares. Able to fall asleep but wakes up around 4 am and hard to get back to sleep. Hip Pain Review of Systems Constitutional: Negative for fatigue. Respiratory: Negative for cough, shortness of breath and wheezing. Cardiovascular: Negative for chest pain and palpitations. Gastrointestinal: Negative for abdominal pain, diarrhea, nausea and vomiting. Genitourinary: Negative for dysuria. Objective Physical Exam Constitutional: General: He is not in acute distress. Appearance: Normal appearance. HENT: Head: Normocephalic. Right Ear: Tympanic membrane and ear canal normal. Left Ear: Tympanic membrane and ear canal normal. Eyes: Extraocular Movements: Extraocular movements intact. Pupils: Pupils are equal, round, and reactive to light. Cardiovascular: Rate and Rhythm: Normal rate and regular rhythm. Heart sounds: No murmur heard. No friction rub. No gallop. Pulmonary: Breath sounds: Normal breath sounds. No wheezing, rhonchi or rales. Abdominal: General: Bowel sounds are normal. There is no distension. Palpations: Abdomen is soft. Tenderness: There is no abdominal tenderness. There is no guarding or rebound. Musculoskeletal: Left lower leg: No edema. Neurological: Mental Status: He is alert. Assessment/Plan Problem List Items Addressed This Visit COPD (chronic obstructive pulmonary disease) (CMS/[facility]) Symptoms stable and continue inhalers. Follow up with pulmonology as scheduled. Degeneration, intervertebral disc, lumbar - Primary Pain stable and continue celebrex and robaxin. Resume home PT exercises. Dyslipidemia (CMS/HCC) Relevant Orders Lipid panel Generalized anxiety disorder (CMS/HCC) Symptoms controlled with medication. Use valium PRN. Primary insomnia Able to fall asleep but wakes up after several hours and increase prazosin. Relevant Medications prazosin (Minipress) 5 MG capsule Prediabetes Relevant Orders Hemoglobin A1c Schizophrenia, undifferentiated (CMS/HCC) Symptoms stable and continue medication. Follow up with psychiatry. Encounter for long-term current use of medication Relevant Orders Basic metabolic panel CBC and differential Hepatic function panel Screening PSA (prostate specific antigen) Relevant Orders PSA documented in this encounter [facility] Evaluation note Note Date & Type Note Facility Evaluation note Diagnosis Lower extremity edema- Primary Edema Generalized anxiety disorder (CMS/HCC) Generalized anxiety disorder documented in this encounter [facility] Evaluation note Note Date & Type Note Facility Evaluation note Diagnosis Degeneration of intervertebral disc of lumbar region with discogenic back pain and lower extremity pain- Primary Chronic obstructive pulmonary disease, unspecified COPD type (CMS/HCC) Schizophrenia, undifferentiated (CMS/HCC) Other specified types of schizophrenia, unspecified condition Generalized anxiety disorder (CMS/HCC) Generalized anxiety disorder Primary insomnia Persistent disorder of initiating or maintaining sleep Encounter for long-term current use of medication Prediabetes Other abnormal glucose Screening PSA (prostate specific antigen) Special screening for malignant neoplasm of prostate Dyslipidemia (CMS/HCC) Other and unspecified hyperlipidemia documented in this encounter [facility] Summary Purpose Family History No Family History Records FoundNo Family History Records FoundNo Family History Records FoundNo Family History Records Found Advance Directives No Advanced Directives Records FoundNo Advanced Directives Records FoundNo Advanced Directives Records FoundNo Advanced Directives Records Found Additional Source Comments (unrecognized sect ion and content) No Status Records FoundNo Status Records FoundNo Status Records FoundNo Status Records Found INFORMATION SOURCE (unrecogn ized section and content) DATE CREATED AUTHOR 02/07/2022 [facility] DATE CREATED AUTHOR AUTHOR'S ORGANIZ ATION 06/10/2022 [facility] DATE CREATED AUTHOR AUTHOR'S ORGANIZ ATION 05/23/2024 [facility] EPIC DATE CREATED AUTHOR AUTHOR'S ORGANCRUZ ATION 05/27/2024 [facility] Care Teams (unrecognized sec tion and content) Office Chair Assembler Relationship Specialty Start Date End Date Bruce Navas MD PCP - General Family Medicine 01/30/23 Office Chair Assembler Relationship Specialty Start Date End Date Bruce Navas MD [address] [place] [phone] PCP - General Family Medicine 11/14/23 Office Chair Assembler Relationship Specialty Start Date End Date Bruce Navas MD [address] [place] [phone] PCP - General Family Medicine 11/14/23 Office Chair Assembler Relationship Specialty Start Date End Date Bruce Navas MD [address] [place] [phone] PCP - General Family Medicine 11/14/23 Reason for Visit (unrecogniz ed section and content) Reason Comments Med Refill Reason Comments Follow-up 6 m Hip Pain FOR RECORDS PERTAINING TO PATIENTS WHO ARE [...] BE BASED ON THE PRIMARY CLINICAL RECORDS. [employer] provides no warranty or guarantee of the accuracy or completeness of information in this document.
[2024-05-27 08:32] LABS: Mean Corpuscular HGB Conc 33.3 g/dL (29.9-35.2); Mean Corpuscular Hemoglobin 31.7 pg (25.9-34.0); Mean Corpuscular Volume 95.2 fL (80.0-94.0); Mean Platelet Volume 9.5 fL (9.5-13.5); Platelet Count 180 10^3/uL (150-450); Red Blood Count 4.41 10^6/uL (4.70-6.10); Red Cell Distribution Width 12.7 % (11.0-15.0); White Blood Count 15.7 10^3/uL (4.0-11.0)
[2024-05-27 08:59] LABS: Basophils Abs Manual 0.15 10^3/uL (0.00-0.10); Lymphocytes Absolute Manual 7.06 10^3/uL (1.20-3.80); Monocytes Absolute Manual 0.62 10^3/uL (0.30-0.80); Segmented Neut Absolute Manual 7.85 10^3/uL (1.4-6.5)
[2024-05-27 09:00] LABS: Anisocytosis 1+; Estimated Average Glucose 128 mg/dL; Glycohemoglobin A1C 6.1 % (4.5-6.2)
[2024-05-27 09:22] LABS: Alanine Aminotransferase 13 U/L (16-63); Albumin Level 3.2 g/dL (3.4-5.0); Alkaline Phosphatase 63 U/L (46-116); Anion Gap 12.3; Aspartate Amino Transferase 13 U/L (15-37); BUN Creatinine Ratio 10.3; Bilirubin Direct 0.1 mg/dL (0.0-0.2); Bilirubin Total 0.3 mg/dL (0.2-1.0); Calcium 9.2 mg/dL (8.5-10.1); Carbon Dioxide 30.7 mmol/L (21.0-32.0); Chloride 105 mmol/L (98-107); Chol HDL Ratio 2.6; Cholesterol 171 mg/dL (<=200); Estimated GFR (African America >60 (>=60 mL/min/1.73m^2); Estimated GFR (Non-African Ame >60 (>=60 mL/min/1.73m^2); Globulin 3.1 g/dL; Glucose 115 mg/dL (74-106); HDL Cholesterol 66 mg/dL (40-60); Sodium 144 mmol/L (136-145); Total Protein 6.3 g/dL (6.4-8.2); Triglycerides 106 mg/dL (<=150); VLDL CHOLESTEROL 21.2 mg/dL
[2024-05-27 09:27] LABS: Prostate Specific Antigen Scrn 0.14 ng/mL (<=4.00)
== END 2024-05-27 08:16 | disposition home or self-care (01) ==
LOC: LAB 08:17
PROVIDERS: PCP Family Medicine; Visit Provider Family Medicine
DX: R73.03 Prediabetes (principal); Z79.899 Other long term (current) drug therapy; E78.5 Hyperlipidemia, unspecified; Z12.5 Encounter for screening for malignant neoplasm of prostate
CPT/HCPCS: 36415; 80048; 80061; 80076; 83036; 85007; 85027; G0103

== ENCOUNTER 2024-07-22 13:33 | Outpatient (OUT) | payer MEDICARE, MEDICAID, SELFPAY ==
--- NOTE | 2024-07-22 13:39 | CT_ITS ---
[address] [address] Patient Name: MARRY ANTONIO MRN: [id number] date: 1970 Sex: M Assigned Patient Location: CT Current Patient Location: Accession/Order Number: [id number] Exam Date: 07/22/2024 14:01 Report Date: 07/23/2024 09:32 At the request of: CHAYA CROWELL Procedure: CT lung screening low-dose EXAMINATION: CT lung screening low-dose HISTORY: Screening For Malignant Neoplasm Of The Respiratory Organs COMPARISON: 07/25/2023 TECHNIQUE: Axial, Coronal, and Sagittal images were created without the administration of IV contrast material. Dose reduction techniques were achieved by using automated exposure control and/or adjustment of mA and/or kV according to patient size and/or use of iterative reconstruction technique. FINDINGS: LUNGS: Mild groundglass infiltrates identified in the right lower lobe, nonspecific. Mild paraseptal emphysema with an upper lobe predominance. No significant pulmonary nodule or mass PLEURA: No mass, effusion, or pneumothorax. VASCULATURE: No abnormality. DEJA: No mass or pathologic adenopathy. MEDIASTINUM: No mass or pathologic adenopathy. CARDIAC: No enlargement, pericardial thickening, or significant calcification. CORONARY ARTERIES: Coronary calcifications are mild. AORTA: No aortic aneurysm. Mild calcific atherosclerosis CHEST WALL: No mass or axillary adenopathy BONES: No bone lesion or fracture. LIMITED ABDOMEN: No suspicious findings. Limited images of the upper abdomen. OTHER: Negative. CT/CT lung screening low-dose IMPRESSION: Mild groundglass infiltrates in the right lower lobe, nonspecific LUNG SCREENING: Lung-RADS Category 1 Negative. No nodules and definitely benign nodules. Continue annual screening with LDCT in 12 months. Electronically authenticated by: STERLING DALEY Date: 07/23/2024 09:32
== END 2024-07-22 13:34 | disposition home or self-care (01) ==
PROVIDERS: PCP Family Medicine; Visit Provider Internal Medicine
DX: F17.219 Nicotine dependence, cigarettes, with unspecified nicotine-induced disorders (principal); Z12.2 Encounter for screening for malignant neoplasm of respiratory organs
CPT/HCPCS: 71271

== ENCOUNTER 2024-08-20 09:47 | Outpatient (OUT) | payer MEDICARE, MEDICAID, SELFPAY ==
--- NOTE | 2024-08-25 08:50 | W.PM.PROCNOT ---
Procedure: 6 Minute Walk Date: 08/20/2024 Indication: Chronic respiratory failure with hypoxia MMRC: 1 Resting data: -BP: 120/87 -HR: 101 -SpO2: 96% -FiO2: Room air -Renetta: 0.5 Description: 6 minute walk was initiated according to standard protocol. Patient ambulated for a total of 6 minutes with the lowest SpO2 at 93%, the highest heart rate at 103, and highest Renetta 1. Recovery data: -BP: 119/86 -HR: 108 -SpO2: 97% -FiO2: Room air -Renetta: 1 Ambulation: Patient ambulated a total of 225.6m which is 54% predicted. There were no stops reported. Impressions: No ambulatory desaturations. Reduced walk distance. Recommendations: No supplemental oxygen indicated based on this study. Clinical correlation required.
== END 2024-08-20 09:48 | disposition home or self-care (01) ==
LOC: CARD 09:47
PROVIDERS: PCP Family Medicine; Visit Provider Internal Medicine
DX: J96.11 Chronic respiratory failure with hypoxia (principal)
CPT/HCPCS: 94618; 99406

== ENCOUNTER 2025-01-28 10:01 | Outpatient (OUT) | payer MEDICARE, MEDICAID, SELFPAY ==
--- OUTSIDE RECORDS SUMMARY | 2025-01-27 10:30 | XMS_ITS | Encounter Summary ---
Author Organization [facility] Address [address] [place] [address] Care Team Providers Care Fuel House Attendant Name Role Phone Bruce José MD Primary Care Provider [phone] Reason for Visit * Reason Comments Follow-up 6m Encounter Details Date Type Department Care Team (Late st Contact Info) Description 01/27/2025 10:30 AM EDT Office Visit [facility] [address] [place] [address] Bruce José MD [address] [place] [address] Chronic obstructive pulmonary disease, unspecified COPD type (HCC) (Primary Dx); Degeneration of intervertebral disc of lumbar region with discogenic back pain and lower extremity pain; Chronic pain of both knees; Schizophrenia, undifferentiated (HCC); Generalized anxiety disorder ; Prediabetes Social History Tobacco Use Types Packs/Day Years Used Date Smoking Tobacco: Every Day Cigarettes 1 30 Started: 07/22/1993; Last attempted to quit: 07/22/2023 Smokeless Tobacco: Never Alcohol Use Standard Drinks/Week Comments Never 0 (1 standard drink = 0.6 oz pur e alcohol) PHQ-2 Answer Date Recorded Patient Health Questionnaire-2 Score 3 07/30/2024 Sex and Gender Information Value Date Recorded Sex Assigned at Not on file Legal Sex Male 9:31 PM EDT Gender Identity Not on file Sexual Orientation Not on file documented as of this encounter Last Filed Vital Signs Vital Sign Reading Time Taken Comments Blood Pressure 140/72 01/27/2025 10:48 AM EDT Pulse 108 01/27/2025 10:48 AM EDT Temperature 34.9 C (94.8 F) 01/27/2025 10:48 AM EDT Respiratory Rate 18 01/27/2025 10:48 AM EDT Oxygen Saturation 95% 01/27/2025 10:48 AM EDT Inhaled Oxygen Concentration - - Weight 88.9 kg (196 lb) 01/27/2025 10:48 AM EDT Height 174 cm (5' 8.5 ) 01/27/2025 10:48 AM EDT Body Mass Index 29.37 01/27/2025 10:48 AM EDT documented in this encounter Progress Notes * Bruce José MD - 01/27/2025 11:27 AM EDTAssociated Problem(s): Schizophrenia, undifferentiated (HCC) Symptoms stable and continue medication. Follow up with psychiatry. * Bruce José MD - 01/27/2025 11:27 AM EDTAssociated Problem(s): Pain in both knees Knees unsteady and script for braces for support. * Bruce José MD - 01/27/2025 11:26 AM EDTAssociated Problem(s): Generalized anxiety disorder Symptoms controlled with medication. Use valium PRN. * Bruce José MD - 01/27/2025 11:26 AM EDTAssociated Problem(s): Degeneration, intervertebral disc, lumbar Pain stable and continue celebrex and robaxin. Resume home PT exercises. Script for brace to patient. * Bruce José MD - 01/27/2025 11:26 AM EDTAssociated Problem(s): COPD (chronic obstructive pulmonary disease) (HCC) Symptoms stable and continue inhalers. Follow up with pulmonology as scheduled. * Bruce José MD - 01/27/2025 10:30 AM EDT Images from the original note were not included. Subjective Patient ID: Edmund Brown is a 54 y.o. male who presents for Follow-up (6m). Follow up back pain, COPD, schizophrenia, anxiety, and insomnia. Patient stable today. Mild pain inlow back and across top hips. Pain radiates into left gluteal region and down left leg. Pain increased with walking and standing. Starting to have weakness in leg and feels like will give out. Continued pain in both knees. Knees unsteady whenup and moving. Using celebrex and robaxin with mild relief. Not performing home PT exercises. Requests back brace and knee braces for support. COPD stable. Mild SOB and cough with exertion. Occasional cough and sputum that is worse in am. Using inhalers daily and albuterol PRN. Following with pulmonology. Schizophrenia stable. Following with psychiatry. No jennifer or psychosis. Anxiety stable. Not as stressed out or overwhelmed. Not as nervous or worry asmuch. Not as wadsworth or irritable. Using valium PRN and helps when needed. Review of Systems Constitutional: Negative for fatigue. [...] Assessment/Plan Problem List Items Addressed This Visit Pain in both knees Knees unsteady and script for braces for support. COPD (chronic obstructive pulmonary disease) (HCC) - Primary Symptoms stable and continue inhalers. Follow up with pulmonology as scheduled. Degeneration, intervertebral disc, lumbar Pain stable and continue celebrex and robaxin. Resume home PT exercises. Script for brace to patient. Generalized anxiety disorder Symptoms controlled with medication. Use valium PRN. Prediabetes Relevant Orders Hemoglobin A1c Basic metabolic panel Schizophrenia, undifferentiated (HCC) Symptoms stable and continue medication. Follow up with psychiatry. documented in this encounter Plan of Treatment Upcoming Encounters Date Type Department Care Team (Late st Contact Info) Description 08/09/2025 10:00 AM EST Office Visit [facility] [address] [place] [address] Bruce José MD [address] [place] [address] Scheduled Orders Name Type Priority Associated Diagnoses Orde r Schedule Hemoglobin A1c Lab Routine Prediabetes Expected: 01/27/2025 (Approximate), Expires: 01/27/2026 Basic metabolic panel Lab Routine Prediabetes Expected: 01/27/2025 (Approximate), Expires: 01/27/2026 documented as of this encounter Visit Diagnoses Diagnosis Chronic obstructive pulmonary disease, unspecified COPD type (HCC)- Primary Degeneration of intervertebral disc of lumbar region with discogenic back pain and lower extremity pain Chronic pain of both knees Schizophrenia, undifferentiated (HCC) Other specified types of schizophrenia, unspecified condition Generalized anxiety disorder Generalized anxiety disorder Prediabetes Other abnormal glucose documented in this encounter Additional Health Concerns Assessment Noted Time PHQ-9 Depression Total Score: 6 07/30/20 24 10:00 AM EST documented as of this encounter Care Teams Fuel House Attendant Relationship Specialty Start Date End Date Bruce José MD [address] [place] [address] PCP - General Family Medicine 11/14/23 documented as of this encounter
--- OUTSIDE RECORDS SUMMARY | 2025-01-28 10:06 | XMS_ITS | Clinical Summary ---
Author Organization [facility] Address [address] [place] [address] Care Team Providers Care Groover And Turner Name Role Phone Herber Patricia MD Primary Care Provider [phone] Social History Tobacco Use Types Packs/Day Years Used Date Smoking Tobacco: Never Assessed Sex and Gender Information Value Date Recorded Sex Assigned at Not on file Legal Sex Male 10:33 PM EDT Gender Identity Not on file Sexual Orientation Not on file Plan of Treatment Health Maintenance Due Date Last Done Comments CT Colonography 1970 Colonoscopy 1970 Colorectal Cancer Screening/Monitoring 1970 Fecal DNA 1970 Fecal occult blood test (FOBT,FIT) 1970 PSA Level 1970 Tetanus: Every 10yrs 1970 Wellness Visit 1973 Depression Screening/Follow-Up (PHQ-2/9) 1982 HIV Screening 1985 Hepatitis C Screening 1988 Pneumococcal Vaccine: Age 50+ (1 of 1 - PCV) Zoster Vaccines (1 of 2) 2020 COVID-19 Vaccine ( season) 2024 Influenza Vaccine (Season Ended) 2025 Insurance MEDICARE PART A & B Member Subscriber Plan / Payer (Ef fective 2008-Present) Name:Edmund Brown Member ID:[id number] Relation to Subscriber:Self Name:Edmund Brown Subscriber ID:[id number] Payer ID:Not on file Group ID:Not on file Type:Not on file Address: [address] [place] [address] [place] [address] [place]ICA[place] Care Teams Groover And Turner Relationship Specialty Start Date End Date Herber Patricia MD [address] [address] PCP - General 07/23/11
--- OUTSIDE RECORDS SUMMARY | 2025-01-28 10:06 | XMS_ITS | Encounter Summary ---
Author Organization [facility] Address [address] [place] [address] Care Team Providers Care Fabric Stretcher Name Role Phone Bruce José MD Primary Care Provider [phone] Encounter Details Date Type Department Care Team (Late Contact Info) Description 01/27/[address] [facility] [address] [place] [phone] Bruce José MD [address] [place] [address] Social History Tobacco Use Types Packs/Day Years [...] on file documented as of this encounter Plan of Treatment Upcoming Encounters Date Type Department Care Team (Late Contact Info) Description 08/09/2025 10:00 AM EST Office Visit [facility] [address] [place] [address] Bruce José MD [address] [place] [address] documented as of this encounter Visit Diagnoses Not on filedocumented in this encounter Additional Health Concerns Assessment Noted Time PHQ-9 Depression Total Score: 6 07/30/20 10:00 AM EST documented as of this encounter Care Teams Fabric Stretcher Relationship Specialty Start Date End Date Bruce José MD [address] [place] [address] PCP - General Family Medicine 11/14/23 documented as of this encounter
--- OUTSIDE RECORDS SUMMARY | 2025-01-28 10:06 | XMS_ITS | Encounter Summary ---
Author Organization [facility] Address [address] [place] [address] Care Team Providers Care Manager Respiratory Care Name Role Phone Bruce José MD Primary Care Provider [phone] Bruec José MD Primary Care Provider [phone] Reason for Visit * Reason Comments Med Refill Encounter Details Date Type Department Care Team (Late st Contact Info) Description 09/09/2023 Refill [facility] [address] [place] [address] Bruce José MD [address] [place] [address] Localized edema; Edema Social History Tobacco Use Types Packs/Day Years Used Date Smoking Tobacco: Former Cigarettes 1 30 1 09/22/1992 - 07/22/2023 Smokeless Tobacco: Never Alcohol Use Standard Drinks/Week Comments Never 0 (1 standard drink = 0.6 oz pur e alcohol) Sex and Gender Information Value Date Recorded Sex Assigned at Not on file Legal Sex Male 9:31 PM EDT Gender Identity Not on file Sexual Orientation Not on file documented as of this encounter Plan of Treatment Upcoming Encounters Date Type Department Care Team (Late st Contact Info) Description 08/09/2025 10:00 AM EST Office Visit [facility] [address] [place] [address] Bruce José MD [address] [place] [address] documented as of this encounter Visit Diagnoses Diagnosis Localized edema Edema Edema documented in this encounter Care Teams Manager Respiratory Care Relationship Specialty Start Date End Date Bruce José MD PCP - General Family Medicine 01/30/23 11/13/23 Bruce José MD [address] [place] [address] PCP - General Family Medicine 11/14/23 documented as of this encounter
--- OUTSIDE RECORDS SUMMARY | 2025-01-28 10:06 | XMS_ITS | Encounter Summary ---
Author Organization [facility] Address [address] [place] [address] Care Team Providers Care Medical Billing Associate Name Role Phone Bruce José MD Primary Care Provider [phone] Encounter Details Date Type Department Care Team (Late st Contact Info) Description 07/23/2024 Clinisync Result Encounter [facility] External Department Unsolicited Provider, Generic External Data Social History Tobacco Use Types Packs/Day Years [...] 08/09/2025 10:00 AM EST Office Visit [facility] [address] [place] [address] Bruce José MD [address] [place] [address] documented as of this encounter Procedures Procedure Name Priority Date/Time Associated Diagnosis Comments CT LUNG SCREENING LOW DOSE 07/23/2024 9:32 AM EST documented in this encounter Results * CT LUNG SCREENING LOW DOSE (07/23/2024 9:32 AM EST) Anatomical Region Laterality Modality Other 07/23/2024 9:32 AM EST Narrative 07/23/2024 9:34 [place] [address] CT Scan Report Signed Patient: MARRY BROWN MR#: [id number] : 1970 Acct:[id number] Age/Sex: 53 / M ADM Date: 07/22/24 Loc: CT Attending Dr: Sagar Crowell D.O. Ordering Physician: Sagar Crowell D.O. Date of Service: 07/22/24 Procedure(s): CT lung screening low-dose Accession Number(s): [id number] cc: Bruce José M.D. [facility] [place] [id number] Patient Name: MARRY BROWN MRN: [id number] date: 1970 Sex: M Assigned Patient Location: CT Current Patient Location: Accession/Order Number: [id number] Exam Date: 07/22/2024 14:01 Report Date: 07/23/2024 09:32 At the request of: SAGAR CROWELL Procedure: CT lung screening low-dose EXAMINATION: CT lung screening low-dose HISTORY: Screening For Malignant Neoplasm Of The Respiratory Organs COMPARISON: 07/25/2023 TECHNIQUE: Axial, Coronal, and Sagittal images were created without the administration of IV contrast material. Dose reduction techniques were achieved by using automated exposure control and/or adjustment of mA and/or kV according to patient size and/or use of iterative reconstruction technique. FINDINGS: LUNGS: Mild groundglass infiltrates identified in the right lower lobe, nonspecific. Mild paraseptal emphysema with an upper lobe predominance. No significant pulmonary nodule or mass PLEURA: No mass, effusion, or pneumothorax. VASCULATURE: No abnormality. DEJA: No mass or pathologic adenopathy. MEDIASTINUM: No mass or pathologic adenopathy. CARDIAC: No enlargement, pericardial thickening, or significant calcification. CORONARY ARTERIES: Coronary calcifications are mild. AORTA: No aortic aneurysm. Mild calcific atherosclerosis CHEST WALL: No mass or axillary adenopathy BONES: No bone lesion or fracture. LIMITED ABDOMEN: No suspicious findings. Limited images of the upper abdomen. OTHER: Negative. CT/CT lung screening low-dose IMPRESSION: Mild groundglass infiltrates in the right lower lobe, nonspecific LUNG SCREENING: Lung-RADS Category 1 Negative. No nodules and definitely benign nodules. Continue annual screening with LDCT in 12 months. Electronically authenticated by: STERLING DALEY Date: 07/23/2024 09:32 Dictated By: Sterling Daley M.D. Signed By: 07/23/24933 DD/ 1 TD/TT: Sleeve Machine Tender: Procedure Note Radiology, Radiologist, MD - 07/23/2024 [place] [address] CT Scan Report Signed Patient: MARRY BROWN TMR#: [id number] : 1970Acct:[id number] Age/Sex: 53 / MADM Date: 07/22/24 Loc: CT Attending Dr: Sagar Crowell D.O. Ordering Physician: Sagar Crowell D.O. Date of Service: 07/22/24 Procedure(s): CT lung screening low-dose Accession Number(s): [id number] cc: Bruce José M.D. [facility] [place] [id number] Patient Name: MARRY BROWN MRN: [id number] date: 1970 Sex: M Assigned Patient Location: CT Current Patient Location: Accession/Order Number: [id number] Exam Date: 07/22/2024 14:01 Report Date: 07/23/2024 09:32 At the request of: ASGAR CROWELL Procedure: CT lung screening low-dose EXAMINATION: CT lung screening low-dose HISTORY: Screening For Malignant Neoplasm Of The Respiratory Organs COMPARISON: 07/25/2023 TECHNIQUE: Axial, Coronal, and Sagittal images were created without the administration of IV contrast material. Dose reduction techniques were achieved by using automated exposure control and/or adjustment of mA and/or kV according to patient size and/or use of iterative reconstruction technique. FINDINGS: LUNGS: Mild groundglass infiltrates identified in the right lower lobe, nonspecific. Mild paraseptal emphysema with an upper lobe predominance. No significant pulmonary nodule or mass PLEURA: No mass, effusion, or pneumothorax. VASCULATURE: No abnormality. DEJA: No mass or pathologic adenopathy. MEDIASTINUM: No mass or pathologic adenopathy. CARDIAC: No enlargement, pericardial thickening, or significantcalcification. CORONARY ARTERIES: Coronary calcifications are mild. AORTA: No aortic aneurysm. Mild calcific atherosclerosis CHEST WALL: No mass or axillary adenopathy BONES: No bone lesion or fracture. LIMITED ABDOMEN: No suspicious findings. Limited images of the upperabdomen. OTHER: Negative. CT/CT lung screening low-dose IMPRESSION: Mild groundglass infiltrates in the right lower lobe, nonspecific LUNG SCREENING: Lung-RADS Category 1 Negative. No nodules and definitely benign nodules. Continue annual screening with LDCT in 12 months. Electronically authenticated by: STERLING DALEY Date: 07/23/2024 09:32 Dictated By: Sterling Daley M.D. Signed By:07/23/24933 DD/ 1 TD/TT: Sleeve Machine Tender: Generic External Data Provider [facility] Final Result documented in this encounter Visit Diagnoses Not on filedocumented in this encounter Care Teams Medical Billing Associate Relationship Specialty Start Date End Date Bruce José MD [address] [place] [address] PCP - General Family Medicine 11/14/23 documented as of this encounter
--- OUTSIDE RECORDS SUMMARY | 2025-01-28 10:06 | XMS_ITS | Encounter Summary ---
Author Organization [facility] Address [address] [place] [address] Care Team Providers Care Telephone Supervisor Name Role Phone Bruce José MD Primary Care Provider [phone] Bruce José MD Primary Care Provider [phone] Encounter Details Date Type Department Care Team (Late Contact Info) Description 08/06/2023 Orders Only [facility] [address] [place] [address] Johnathon Canchola MD [address] [place] [address] Social History Tobacco Use Types Packs/Day Years [...] Office Visit [facility] [address] [place] [address] Bruce José MD [address] [place] [address] documented as of this encounter Procedures Procedure Name Priority Date/Time Associated Diagnosis Comments XR CHEST 2 VIEWS Routine 07/22/2023 3:52 PM EST documented in this encounter Results * XR chest 2 views (07/22/2023 3:52 PM EST) Anatomical Region Laterality Modality Chest Radiographic Miguelina ging us Johnathon Canchola MD IMG XR PROCEDURES Final Res ult documented in this encounter Visit Diagnoses Not on filedocumented in this encounter Care Teams Telephone Supervisor Relationship Specialty Start Date End Date Bruce José MD PCP - General Family Medicine 01/30/23 11/13/23 Bruce José MD [address] [place] [address] PCP - General Family Medicine 11/14/23 documented as of this encounter
--- OUTSIDE RECORDS SUMMARY | 2025-01-28 10:06 | XMS_ITS | Clinical Summary ---
Author Organization [facility] Healthcare Address [address] [place] [address] Care Team Providers Care Quality Review Specialist Name Role Phone Bruce José MD Primary Care Provider [phone] Allergies Active Allergy Reactions Criticality Noted Date Comments Penicillins 07/29/2023 Medications Multiple Vitamins-Minerals (MULTIVITAMIN ADULTS 50+ PO) Take by mouth A ctive busPIRone (Buspar) 30 MG tablet Take 30 mg by mouth in the morning and 30 mg before bedtime. Active DULoxetine (Cymbalta) [address] capsule Take 60 mg by mouth in the morning. Do not crush or chew.. Active albuterol HFA 90 mcg/act inhaler Inhale 2 puffs every 4 (four) hours if needed for wheezing Active risperiDONE (RisperDAL) 4 MG tablet Take 4 mg by mouth at bedtime 023 Active budesonide-formot kylie (Symbicort) 160-4.5 MCG/ACT inhaler Inhale 2 puffs in the morning and 2 puffs before bedtime. Rinse mouth with water after use to reduce aftertaste and incidence of candidiasis. Do not swallow.. Active sildenafil (Viagra) 100 MG tabletIndications :Erectile dysfunction of organic origin Take 1 tablet (100 mg) by mouth Daily as needed for erectile dysfunction 10 tablet 3 023 Active Spiriva Respimat 2.5 MCG/ACT inhaler 1 (one) time each day at the same time 024 Active lamoTRIgine (LaMICtal) 200 MG tablet 024 Active furosemide (Lasix) 40 MG tabletIndications :Lower extremity edema TAKE 1 TABLET BY MOUTH EVERY DAY NEEDED 90 tablet 3 024 Active atorvastatin (Lipitor) 40 MG tabletIndications :Hyperlipidemia, unspecified TAKE 1 TABLET BY MOUTH EVERYDAY AT BEDTIME 90 tablet 3 024 Active Multiple Vitamins-Minerals ([employer] Spectravite Adult 50+) tabletIndications :Tobacco use disorder,Tobacco use TAKE 1 TABLET BY MOUTH EVERY DAY 90 tablet 3 024 Active methocarbamol (Robaxin) 750 MG tabletIndications :Degeneration, intervertebral disc, lumbar TAKE 1 TABLET BY MOUTH 4 TIMES A DAY NEEDED FOR MUSCLE SPASMS 60 tablet 2 025 Active celecoxib (CeleBREX) 200 MG capsuleIndication s:Degeneration, intervertebral disc, lumbar TAKE 1 CAPSULE BY MOUTH IN THE MORNING AND BEFORE BEDTIME WITH FOOD 60 capsule 3 025 Active fluticasone (Flonase) 50 MCG/ACT nasal sprayIndications: Upper respiratory tract infection, unspecified type USE 2 SPRAYS IN EACH NOSTRIL ONCE DAILY *SHAKE BEFORE FIRST USE PRIME PUMP/CLEAN TIP* 48 mL 3 025 Active diazePAM (Valium) 10 MG tabletIndications :Generalized anxiety disorder TAKE 1 TABLET BY MOUTH THREE TIMES A DAY NEEDED 90 tablet 1 025 Active prazosin (Minipress) 5 MG capsuleIndication s:Primary insomnia Take 1 capsule (5 mg) by mouth at bedtime 90 capsule 3 024 2024 Discontinued fluticasone (Flonase) 50 MCG/ACT nasal sprayIndications: Upper respiratory tract infection, unspecified type ADMINISTER 2 SPRAYS INTO EACH NOSTRIL DAILY SHAKE GENTLY. BEFORE FIRST USE, PRIME PUMP. AFTER USE, CLEAN TIP AND REPLACE CAP 48 mL 1 025 2024 Discontinued nabumetone (Relafen) 500 MG tabletIndications :Degeneration, intervertebral disc, lumbar TAKE 1 TABLET BY MOUTH TWICE A DAY 60 tablet 5 025 2024 Discontinued diazePAM (Valium) 10 MG tabletIndications :Generalized anxiety disorder TAKE 1 TABLET BY MOUTH THREE TIMES A DAY NEEDED 90 tablet 1 025 2024 Discontinued Active Problems Problem Noted Date Diagnosed Date Medicare annual wellness visit, subsequent 07/30 Assessment & Plan (07/30/2024 10:58 AM EST): Reviewed labs. Discussed proper diet and regular aerobic exercise. Need aerobic exercise 5-6 days a week for 30 minutes at a time. Smaller portions and limit total calories. Cologuard normal in November. Tetanus every 10 years. Advised not to smoke. Encounter for long-term current use of medicatio n 05/21/2024 Screening PSA (prostate specific antigen) 2023 Pain in both knees 07/29/2023 Assessment & Plan (01/27/2025 11:27 AM EDT): Knees unsteady and script for braces for support. COPD (chronic obstructive pulmonary disease) Assessment & Plan (01/27/2025 11:26 AM EDT): Symptoms stable and continue inhalers. Follow up with pulmonology as scheduled. Assessment & Plan (05/21/2024 11:06 AM EDT): Symptoms stable and continue inhalers. Follow up with pulmonology as scheduled. Assessment & Plan (11/14/2023 11:37 AM EDT): Symptoms stable and continue inhalers. Follow up with pulmonology as scheduled. Degeneration, intervertebral disc, lumbar 2022 Assessment & Plan (01/27/2025 11:26 AM EDT): Pain stable and continue celebrex and robaxin. Resume home PT exercises. Script for brace to patient. Assessment & Plan (05/21/2024 11:06 AM EDT): Pain stable and continue celebrex and robaxin. Resume home PT exercises. Assessment & Plan (11/14/2023 11:38 AM EDT): Increased pain and treat with prednisone. Stop relafen and baclofen. Try celebrex and robaxin. Resume home PT exercises. Dyslipidemia 07/29/2023 Lower extremity edema 07/29/2023 Erectile dysfunction of organic origin Generalized anxiety disorder 07/29/2023 Assessment & Plan (01/27/2025 11:26 AM EDT): Symptoms controlled with medication. Use valium PRN. Assessment & Plan (05/21/2024 11:07 AM EDT): Symptoms controlled with medication. Use valium PRN. Ganglion of left wrist 07/29/2023 Primary insomnia 07/29/2023 Assessment & Plan (05/21/2024 11:07 AM EDT): Able to fall asleep but wakes up after several hours and increase prazosin. Assessment & Plan (11/14/2023 11:40 AM EDT): Not sleeping well and try prazosin. Unstable right knee 07/29/2023 Prediabetes 07/29/2023 Schizophrenia, undifferentiated 07/29/2023 Assessment & Plan (01/27/2025 11:27 AM EDT): Symptoms stable and continue medication. Follow up with psychiatry. Assessment & Plan (05/21/2024 11:07 AM EDT): Symptoms stable and continue medication. Follow up with psychiatry. Assessment & Plan (11/14/2023 11:40 AM EDT): Symptoms stable and continue medication. Follow up with psychiatry. Resolved Problems Problem Noted Date Diagnosed Date Resolved Date Acute exacerbation of chroni c obstructive pulmonary disease (COPD) 07/29/2023 11/14/2023 Assessment & Plan (07/29/2023 2:34 PM EST): Recent exacerbation but improved. Continue steroids and inhalers. Use albuterol PRN. Pneumonia 07/29/2023 05/21/2024 Assessment & Plan (07/29/2023 2:34 PM EST): Improved after treatment and complete antibiotics and steroids as directed. Acute hypoxic respiratory failure 07/29/2023 05/21/2024 Assessment & Plan (07/29/2023 2:35 PM EST): Home with oxygen and monitor SpO2. Hopefully can wean off over time. Encounters Date Type Department Care Team Description 01/27/2025 10:30 AM EDT Office Visit [facility] [address] [place] [address] Bruce José MD Chronic obstructive pulmonary disease, unspecified COPD type (HCC) (Primary Dx); Degeneration of intervertebral disc of lumbar region with discogenic back pain and lower extremity pain; Chronic pain of both knees; Schizophrenia, undifferentiated (HCC); Generalized anxiety disorder ; Prediabetes 01/27/[address] [facility] [address] [place] [address] Bruce José MD 01/13/[address] [facility] [address] [place] [id number] Bruce José MD Upper respiratory tract infection, unspecified type; Generalized anxiety disorder 11/21/[address] [facility] [address] [place] [phone] Bruce José MD Degeneration, intervertebral disc, lumbar from Last 3 Months Social History Tobacco Use Types Packs/Day Years Used Date Smoking Tobacco: Every Day Cigarettes 1 30 Started: 07/22/1993; Last attempted to quit: 07/22/2023 Smokeless Tobacco: Never Tobacco Cessation:Ready to Q uit: Not Asked; Counseling Given: Not Answered Alcohol Use Standard Drinks/Week Comments Never 0 (1 standard drink = 0.6 oz pur e alcohol) PHQ-2 Answer Date Recorded Patient Health Questionnaire-2 Score 3 07/30/2024 Sex and Gender Information Value Date Recorded Sex Assigned at Not on file Legal Sex Male 9:31 PM EDT Gender Identity Not on file Sexual Orientation Not on file Last Filed Vital Signs Vital Sign Reading [...] Mass Index 29.37 01/27/2025 10:48 AM EDT Plan of Treatment Upcoming Encounters Date Type Department Care Team (Late st Contact Info) Description 08/09/2025 10:00 AM EST Office Visit [facility] [address] [place] [address] Bruce José MD [address] [place] [address] Health Maintenance Due Date Last Done Comments CT Colonography 1970 Colonoscopy 1970 FIT 1970 FOBT 1970 Sigmoidoscopy 1970 Influenza Vaccine (Season Ended) 2025 Lung Cancer Screening Shared Decision Making 07/19/2025 Postponed from 12/18 (Other Medical Reasons) Medicare Annual Wellness (AWV) 07/30/2025 07/30/2024 Colorectal Cancer Screening 12/06/2026 FIT-DNA 12/06/2026 12/07/2023 Procedures Procedure Name Priority Date/Time Associated Diagnosis Comments LAB COLOGUARD COLON CANCER SCREEN Routine 12/07/2023 6:45 AM EDT Colon cancer screening from Last 3 Months or Most Recently Relevant to Health Maintenance Results * Cologuard?? colon cancer screening (12/07/2023 6:45 AM EDT) NONINV COLON CA DNA+OCC BLD SCRN STL-IMP Negative Negative 12/14/2023 5:16 AM EDT [facility] (CLIA #:[id number]) Comment: NEGATIVE TEST RESULT. A negative Cologuard result indicates a low likelihood that a colorectal cancer (CRC) or advanced adenoma (adenomatous polyps with more advanced pre-malignant features) is present. The chance that a person with a negative Cologuard test has a colorectal cancer is less than 1 in 1500 (negative predictive value >99.9%) or has an advanced adenoma is less than 5.3% (negative predictive value 94.7%). These data are based on a prospective cross-sectional study of 10,000 individuals at average risk for colorectal cancer who were screened with both Cologuard and colonoscopy. (Nicholas Soto et al, N Engl J Med 2014;370(14):6613-6376) The normal value (reference range) for this assay is negative. COLOGUARD RE-SCREENING RECOMMENDATION: Periodic colorectal cancer screening is an important part of preventive healthcare for asymptomatic individuals at average risk for colorectal cancer. Following a negative Cologuard result, the [place] [employer] and U.S. Multi-Society Task Force screening guidelines recommend a Cologuard re-screening interval of 3 years. References: [place] [employer] Guideline for Colorectal Cancer Screening: https://www.cancer.org/cancer/ozozs-xlkplz-dbowbj/ewbpncqpb-ulcjavify-slaxfrz/ac s-rec ommendations.html.; Dano DK, Francisco Javier MEJIA, Tono GarnettK, Colorectal Cancer Screening: Recommendations for Physicians and Patients from the U.S. Multi-Society Task Force on Colorectal Cancer Screening , Am J Gastroenterology 2017; 112:2329-8474. TEST DESCRIPTION: Composite algorithmic analysis of stool DNA-biomarkers with hemoglobin immunoassay. Quantitative values of individual biomarkers are not reportable and are not associated with individual biomarker result reference ranges. Cologuard is intended for colorectal cancer screening of adults of either sex, 45 years or older, who are at average-risk for colorectal cancer (CRC). Cologuard has been approved for use by the U.S. FDA. The performance of Cologuard was established in a cross sectional study of average-risk adults aged 50-84. Cologuard performance in patients ages 45 to 49 years was estimated by sub-group analysis of near-age groups. Colonoscopies performed for a positive result may find as the most clinically significant lesion: colorectal cancer [4.0%], advanced adenoma (including sessile serrated polyps greater than or equal to 1cm diameter) [20%] or non- advanced adenoma [31%]; or no colorectal neoplasia [45%]. These estimates are derived from a prospective cross-sectional screening study of 10,000 individuals at average risk for colorectal cancer who were screened with both Cologuard and colonoscopy. (Nicholas Verma al, N Engl J Med 2014;370(14):7841-7169.) Cologuard may produce a false negative or false positive result (no colorectal cancer or precancerous polyp present at colonoscopy follow up). A negative Cologuard test result does not guarantee the absence of CRC or advanced adenoma (pre-cancer). The current Cologuard screening interval is every 3 years. ([place] [employer] and U.S. Multi-Society Task Force). Cologuard performance data in a 10,000 patient pivotal study using colonoscopy as the reference method can be accessed at the following location: www.ADVIZE.codebender/results. Additional description of the Cologuard test process, warnings and precautions can be found at www.[employer].com. Stool specimen (specimen) 12/07/2023 6:45 AM EDT 12/08/2023 10:14 PM EDT Bruce José MD LAB MOLECULAR DIAGNOSTICS ORDERA BLES Final Result .[facility] (CLIA #:[id number]) [address] [id number], [facility] (CLIA #:[id number]) [address] [id number] from Last 3 Months or Most Recently Relevant to Health Maintenance Insurance MEDICAID [place] [facility] MEDICARE ADVANTAGE Care Teams Quality Review Specialist Relationship Specialty Start Date End Date Bruce José MD [address] [place] [phone] PCP - General Family Medicine 11/14/23
--- OUTSIDE RECORDS SUMMARY | 2025-01-28 10:06 | XMS_ITS | Encounter Summary ---
Author Organization [facility] Address [address] [place] [address] Care Team Providers Care Plain Goods Hemmer Name Role Phone Bruce José MD Primary Care Provider [phone] Bruce José MD Primary Care Provider [phone] Encounter Details Date Type Department Care Team (Late Contact Info) Description 09/18/2023 Clinisync Result Encounter [facility] External Department Unsolicited [...] 08/09/2025 10:00 AM EST [facility] Visit [facility] [address] [place] [address] Bruce José MD [address] [place] [phone] documented as of this encounter Procedures Procedure Name Priority Date/Time Associated Diagnosis Comments RT PULMONARY FUNCTION TEST 09/18/2023 12:53 PM EST documented in this encounter Results * RT PULMONARY FUNCTION TEST (09/18/2023 12:53 PM EST) Anatomical Region Laterality Modality Other 09/18/2023 12:5 3 PM EST Narrative 09/18/2023 3:59 [place] [address] Respiratory Report Signed Patient: MARRY BROWN MR#: [id number] : 1970 Acct:[id number] Age/Sex: 52 / M ADM Date: 09/18/23 Loc: CARD Attending Dr: Sagar Johnson D.O. Ordering Physician: Sagar Johnson D.O. Date of Service: 09/18/23 Procedure(s): RT pulmonary function test Accession Number(s): [id number] cc: [facility] Test Date: 2023-09-18 Pat Name: MARRY BROWN Department: Room: - Gender: Male [place]: Moses Pickett RRT : 1970 Requested By: Sagar Johnson Order Number: [id number] Reading MD: Sagar Johnson Interpretive Statements Pulmonary function testing was completed according to ATS criteria. Findings were considered accurate and reproducible. Both pre- and post-bronchodilator values utilized for spirometry. Spirometry (based on pre-bronchodilator values): -FEV1/FVC: Reduced @ 62% -FEV1: Moderately-severe reduced @ 52% -FVC: Reduced @ 66% -There is a positive bronchodilator response in FEV1 and FVC. Lung volumes by plethysmography (based on pre-bronchodilator values): -RV: Increased @ 198% -TLC: Normal @ 111% Diffusion capacity: -DLCO: Moderate reduction @ 65% when corrected for Hb 15.1g/dL Flow-volume loop: -Moderate obstructive pattern Flow-pressure loop: ???Emphysematous pattern Impressions: Spirometry suggests moderate obstruction. There is a positive bronchodilator response. An elevated RV suggests air trapping. There is a moderately reduced diffusion capacity. Overall study is compatible with COPD with a bronchodilator response or asthma-COPD overlap. Clinical correlation required. Electronically Signed On 09-18-2023 15:59:37 EST by Sagar Johnson Dictated By: Sagar Johnson D.O. Signed By: 09/18/23 1559 DD/ 1253 TD/TT: Shrimp Peeler: Procedure Note Radiology, Radiologist, MD - 09/18/2023 [place] [address] Respiratory Report Signed Patient: MARRY BROWN TMR#: [id number] : 1970Acct:[id number] Age/Sex: 52 / MADM Date: 09/18/23 Loc: CARD Attending Dr: Sagar Johnson D.O. Ordering Physician: Sagar Johnson D.O. Date of Service: 09/18/23 Procedure(s): RT pulmonary function test Accession Number(s): [id number] cc: [facility] Test Date: 2023-09-18 Pat Name: MARRY BROWN Department: Room: - Gender: Male [place]: Moses Pickett RRT : 1970 Requested By: Sagar Johnson Order Number: [id number] Reading MD: Sagar Johnson Interpretive Statements Pulmonary function testing was completed according to ATS criteria.Findings were considered accurate and reproducible. Both pre- andpost-bronchodilator values utilized for spirometry. Spirometry (based on pre-bronchodilator values): -FEV1/FVC: Reduced @ 62% -FEV1: Moderately-severe reduced @ 52% -FVC: Reduced @ 66% -There is a positive bronchodilator response in FEV1 and FVC. Lung volumes by plethysmography (based on pre-bronchodilator values): -RV: Increased @ 198% -TLC: Normal @ 111% Diffusion capacity: -DLCO: Moderate reduction @ 65% when corrected for Hb 15.1g/dL Flow-volume loop: -Moderate obstructive pattern Flow-pressure loop: ???Emphysematous pattern Impressions: Spirometry suggests moderate obstruction. There is a positivebronchodilator response. An elevated RV suggests air trapping. There is a moderatelyreduced diffusion capacity. Overall study is compatible with COPD with a bronchodilator response or asthma-COPD overlap. Clinical correlation required. Electronically Signed On 09-18-2023 15:59:37 EST by Sagar Johnson Dictated By: Sagar Johnson D.O. Signed By:09/18/23 1555 DD/ 1253 TD/TT: Shrimp Peeler: Generic External Data Provider [facility] Final Result documented in this encounter Visit Diagnoses Not on filedocumented in this encounter Care Teams Plain Goods Hemmer Relationship Specialty Start Date End Date Bruce José MD PCP - General Family Medicine 01/30/23 11/13/23 Bruce José MD [address] [place] [address] PCP - General Family Medicine 11/14/23 documented as of this encounter
--- OUTSIDE RECORDS SUMMARY | 2025-01-28 10:06 | XMS_ITS | Encounter Summary ---
Author Organization [facility] Address [address] [place] [address] Care Team Providers Care Police [employer] Program Coordinator Name Role Phone Bruce José MD Primary Care Provider [phone] Bruce José MD Primary Care Provider [phone] Encounter Details Date Type Department Care Team ([facility] Contact Info) Description 08/06/2023 Abstract [facility] [address] [place] [address] Sagar Johnson, DO [address], [place] [id number] Social History Tobacco Use Types Packs/Day Years [...] Office Visit [facility] [address] [place] [address] Bruce José MD [address] [place] [phone] documented as of this encounter Visit Diagnoses Not on filedocumented in this encounter Care Teams [employer] Program Coordinator Relationship Specialty Start Date End Date Bruce José MD PCP - General Family Medicine 01/30/23 11/13/23 Bruce José MD [address] [place] [address] PCP - General Family Medicine 11/14/23 documented as of this encounter
--- OUTSIDE RECORDS SUMMARY | 2025-01-28 10:24 | XMS_ITS | CCD ---
Author Organization [facility] Care Team Providers Care [employer] Supervisor Name Role Phone ELOISE, DR BRUCE Rosado Primary Care Unavailable MARYAM, KAROLYN Admitting Unavailable MARYAM, KAROLYN Attending Unavailable OXANA, DR GENNARO Natarajan Consulting Unavailable YENadia, JESSENIA Consulting Unavailable MARYAM, KAROLYN Consulting Unavailable ELOISE, DR BRUCE Rosado Admitting Unavailable NADJUANR, DR BRUCE Rosado Attending Unavailable NADERER, DR BRUCE Rosado Primary Care Unavailable NADERER, DR BRUCE Rosado Consulting Unavailable FAWWAD, H Admitting Unavailable FAWJODID, H Attending Unavailable NADYAHIR, DR BRUCE Rosado Primary Care Unavailable CRYSTAL, DR RICCARDO Natarajan Consulting Unavailable FAWMAGALY, RICE H Consulting Unavailable NADERER, DR BRUCE Rosado Admitting Unavailable NADERER, DR BRUCE Rosado Attending Unavailable NADERER, DR BRUCE Rosado Primary Care Unavailable ZIALON, DR RICCARDO Natarajan Consulting Unavailable NADERER, DR BRUCE Rosado Consulting Unavailable FAWWAD, RICE H Admitting Unavailable FAWWAD, IRCE H Attending Unavailable NADERER, DR BRUCE Rosado Primary Care Unavailable FAWMAGALY, RICE H Admitting Unavailable FAWWAD, RICE H Attending Unavailable NADJUANR, DR BRUCE Rosado Primary Care Unavailable NADERER, DR BRUCE Rosado Primary Care Unavailable MARYAM, KAROLYN Admitting Unavailable MARYAM, KAROLYN Attending Unavailable MARYAM, KAROLYN Consulting Unavailable ELOISE, DR BRUCE Rosado Primary Care Unavailable OXANA, DR GENNARO Natarajan Admitting Unavailable OXANA, DR GENNARO Natarajan Attending Unavailable OXANA, DR GENNARO Natarajan Consulting Unavailable BRANDI MEDINA Consulting Unavailable RAIMUNDO SAHA Primary Care Unavailable SYSTEM, PROVIDER NOT IN Admitting UnavailBruce Trivedi MD Primary Care Provider Bruce Navas MD Primary Care Provider [phone] BRUCE NAVAS Attending Unavailable ELOISE, BRUCE Attending Unavailable ELOISE, BRUCE Attending Unavailable CHAYA CROWELL Referring Unavailable Aldo Loya Attending Unavailab Aldo Brito Admitting Unavailab le NON STAFF Primary Care Unavailable Allergies Allergy Classification Reported Allergen(s) Allergy Type Date of Onset Reaction(s) Facility (1 source) Penicillins Drug allergy (disorder) 5 [facility] Repository (15 sources) Penicillins Propensity to adverse reactions 3 [facility] Medications Current Medications Medication Drug Class(es) Dates Sig (Normalized) Sig (Original) [id number] 200 actuat albuterol 0.09 mg/actuat metered dose inhaler (15 sources) beta2-Adrenergic Agonist take 2 puff(s) by inhalation every four hours for wheezing albuterol HFA 90 mcg/act inhaler Inhale 2 puffs every 4 (four) hours if needed for wheezing Active atorvastatin 40 mg oral tablet (15 sources) HMG-CoA Reductase Inhibitor Start: 06-15-2024 take 1 tablet by mouth once daily at bedtime atorvastatin (Lipitor) 40 MG tablet Indications: Hyperlipidemia, unspecified TAKE 1 TABLET BY MOUTH EVERYDAY AT BEDTIME 90 tablet 3 06/15/2024 Active take 1 tablet by mouth at bedtim e atorvastatin (Lipitor) 40 MG tablet Take 40 [...] formoterol fumarate 0.0045 mg/actuat metered dose inhaler (15 sources) Corticosteroid, beta2-Adrenergic Agonist take 2 puff(s) by inhalation in the morning budesonide-formote rol (Symbicort) 160-4.5 MCG/ACT inhaler Inhale 2 puffs in the morning and 2 puffs before bedtime. Rinse mouth with water after use to reduce aftertaste and incidence of candidiasis. Do not swallow.. Active busPIRone hydrochloride 30 mg oral tablet (15 sources) take 1 tablet by mouth in the morning busPIRone (Buspar) 30 MG tablet Take 30 mg by mouth in the morning and 30 mg before bedtime. Active celecoxib 200 mg oral capsule (14 sources) Nonsteroidal Anti-inflammatory Drug Start: 11-23-2024 take 1 capsule by mouth at bedtime celecoxib (CeleBREX) 200 MG capsule Indications: Degeneration, intervertebral disc, lumbar TAKE 1 CAPSULE BY MOUTH IN THE MORNING AND BEFORE BEDTIME WITH FOOD 60 capsule 3 11/23/2024 Active Start: 04-14-2024 take 1 capsule by mo [facility] at bedtime celecoxib (CeleBREX) 200 MG capsule Indications: Degeneration, intervertebral disc, lumbar TAKE 1 CAPSULE BY MOUTH IN THE MORNING AND BEFORE BEDTIME WITH FOOD 60 capsule 3 04/14/2024 Active diazePAM 10 mg oral tablet (19 sources) Benzodiazepine Start: 01-27-2024 End: 01-13-2025 take 1 tablet by mouth three times daily as needed diazePAM (Valium) 10 MG tablet Indications: Generalized anxiety disorder TAKE 1 TABLET BY MOUTH THREE TIMES A DAY NEEDED 90 tablet 1 01/13/2025 Active take 1 tablet by anjel three times daily as needed diazePAM (Valium) 10 MG tablet Take 10 m g by mouth 3 (three) times a day as needed 0 Active DULoxetine 60 mg delayed release oral capsule (15 sources) Serotonin and Norepinephrine Reuptake Inhibitor take 1 capsule by mouth in the morning DULoxetine (Cymbalta) [address] capsule Take 60 mg by mouth in the morning. Do not crush or chew.. Active fluticasone propionate 0.05 mg/actuat metered dose nasal spray (8 sources) Corticosteroid Start: 01-14-20 take 2 spray(s) nasal route once daily fluticasone (Flonase) 50 MCG/ACT nasal spray Indications: Upper respiratory tract infection, unspecified type USE 2 SPRAYS IN EACH NOSTRIL ONCE DAILY *SHAKE BEFORE FIRST USE PRIME PUMP/CLEAN TIP* 48 mL 3 01/13/2025 Active Start: 08-25-2024 End: 01-13-2025 take 2 spray(s) nasal route once daily fluticasone (Flonase) 50 MCG/ACT nasal spray Indications: Upper respiratory tract infection, unspecified type ADMINISTER 2 SPRAYS INTO EACH NOSTRIL DAILY SHAKE GENTLY. BEFORE FIRST USE, PRIME PUMP. AFTER USE, CLEAN TIP AND REPLACE CAP 48 mL 1 08/25/2024 01/13/2025 Discontinued Start: 07-30-2024 take 2 spray(s) nasa l route once daily fluticasone (Flonase) 50 MCG/ACT nasal spray Indications: Upper respiratory tract infection, unspecified type Administer 2 sprays into each nostril Daily Shake gently. Before first use, prime pump. After use, clean tip and replace cap. 16 g 2 07/30/2024 Active Start: 07-30-2024 take 2 spray(s) nasa l route once daily fluticasone (Flonase) 50 MCG/ACT nasal spray Indications: Upper respiratory tract infection, unspecified type Administer 2 sprays into each nostril Daily Shake gently. Before first use, prime pump. After use, clean tip and replace cap. 16 g 2 07/30/2024 Active furosemide 40 mg oral tablet (16 sources) Loop Diuretic Start: 05-14-2024 End: 05-14-2024 take 1 tablet by mouth once daily as needed furosemide (Lasix) 40 MG tablet Indications: Lower extremity edema TAKE 1 TABLET BY MOUTH EVERY DAY NEEDED 90 tablet 3 05/14/2024 Active lamoTRIgine 200 mg oral tablet (14 sources) Mood Stabilizer, Anti-epileptic Agent Start: 11-12-2023 lamoTRIgine (LaMICtal) 200 MG tablet 11/12/2023 Active levoFLOXacin 750 mg oral tablet (1 source) Quinolone Antimicrobial Start: 07-06-2024 End: 07-13-2024 take 1 tablet by mouth once daily levoFLOXacin (Levaquin) 750 MG tablet Indications: Upper respiratory tract infection, unspecified type Take 1 tablet (750 mg) by mouth Daily for 7 days 7 tablet 07/06/2024 07/13/2024 Active methocarbamol 750 mg oral tablet (14 sources) Muscle Relaxant Start: 07-13-2024 End: 10-06-2024 take 1 tablet by mouth four times daily as needed for muscle spasms methocarbamol (Robaxin) 750 MG tablet Indications: Degeneration, intervertebral disc, lumbar TAKE 1 TABLET BY MOUTH 4 TIMES A DAY NEEDED FOR MUSCLE SPASMS 60 tablet 2 10/06/2024 Active Start: 03-16-2024 take 1 tablet by anjel four times daily as needed for muscle spasms methocarbamol (Robaxin) 750 MG tablet Indications: Degeneration, intervertebral disc, lumbar TAKE 1 TABLET BY MOUTH 4 TIMES A DAY NEEDED FOR MUSCLE SPASMS 60 tablet 2 03/16/2024 Active Multiple Vitamins-Minerals ([employer] Spectravite Adult 50+) tablet (8 sources) Start: 07-13-2024 take 1 tablet by mouth once daily Multiple Vitamins-Minerals ([employer] Spectravite Adult 50+) tablet Indications: Tobacco use disorder , Tobacco use TAKE 1 TABLET BY MOUTH EVERY DAY 90 tablet 3 07/13/2024 Active Multiple Vitamins-Minerals (MULTIVITAMIN ADULTS 50+ PO) (15 sources) Multiple Vitamins-Minerals (MULTIVITAMIN ADULTS 50+ PO) Take by mouth Active Multiple Vitamin s-Minerals (MULTIVITAMIN ADULTS 50+ PO) Take by mouth 0 Active nabumetone 500 mg oral tablet (6 sources) Nonsteroidal Anti-inflammatory Drug Start: 10-06-2024 End: 01-27-2025 take 1 tablet by mouth twice daily nabumetone (Relafen) 500 MG tablet Indications: Degeneration, intervertebral disc, lumbar TAKE 1 TABLET BY MOUTH TWICE A DAY 60 tablet 5 10/06/2024 01/27/2025 Discontinued take 1 tablet by mouth in the mo rning nabumetone (Relafen) 500 MG tablet Take 500 mg by mouth in the morning and 500 mg before bedtime. 0 Active prazosin 5 mg oral capsule (16 sources) alpha-Adrenergic Samuel Start: 05-21-2024 End: 01-27-2025 take 1 capsule by mouth at bedtime prazosin (Minipress) 5 MG capsule Indications: Primary insomnia Take 1 capsule (5 mg) by mouth at bedtime 90 capsule 3 05/21/2024 01/27/2025 Discontinued Start: 03-09-2024 End: 05-21-2024 take 1 capsule by mouth at bedtime prazosin (Minipress) 2 MG capsule Indications: Primary insomnia TAKE 1 CAPSULE BY MOUTH AT BEDTIME 90 capsule 1 03/09/2024 05/21/2024 Discontinued (Reorder) risperiDONE 4 mg oral tablet (15 sources) Atypical Antipsychotic Start: 07-06-2023 take 1 tablet by mouth at bedtime risperiDONE (RisperDAL) 4 MG tablet Take 4 mg by mouth at bedtime 07/06/2023 Active sildenafil 100 mg oral tablet (15 sources) Phosphodiesterase 5 Inhibitor Start: 07-29-2023 take 1 tablet by mouth once daily as needed sildenafil (Viagra) 100 MG tablet Indications: Erectile dysfunction of organic origin Take 1 tablet (100 mg) by mouth Daily as needed for erectile dysfunction 10 tablet 3 07/29/2023 Active 10 actuat tiotropium 0.0025 mg/actuat inhalation spray (14 sources) Anticholinergic Start: 09-05-2023 Spiriva Respimat 2.5 MCG/ACT inhaler 1 (one) time each day at the same time 09/05/2023 Active 7 actuat umeclidinium 0.0625 mg/actuat dry powder inhaler (1 source) Anticholinergic Umeclidinium Alger (Incruse Ellipta) 62.5 MCG/ACT aerosol powder Inhale 0 Active Problems Active Problems Problem Classification Problem Date Documented Date Episodic/Chronic Anxiety disorders (20 sources) Anxiety disorder, unspecified; Translations: [Generalized anxiety disorder] Onset: 05-10-2021 07-29-2023 Chronic Chronic obstructive pulmonary disease and bronchiectasis (20 sources) Chronic obstructive pulmonary disease, unspecified; Translations: [Chronic obstructive lung disease] Onset: 07-21-2021 Resolved: 11-14-2023 07-29-2023 Chronic Diabetes mellitus without complication (19 sources) Prediabetes; Translations: [Prediabetes] Onset: 07-29-2023 07-29-2023 Episodic Disorders of lipid metabolism (20 sources) Hyperlipidemia, unspecified; Translations: [Dyslipidemia] Onset: 04-10-2021 Chronic E Codes: Natural/environment (1 source) Overexertion from prolonged static or awkward postures, initial encounter; Translations: [OVEREXERT PROLNG STAT/AWK PST INIT] Onset: 02-06-2022 Episodic Miscellaneous mental health disorders (16 sources) Primary insomnia; Translations: [Primary insomnia] Onset: 07-29-2023 11-14-2023 Chronic Other aftercare (3 sources) Other [employer] continuous [employer] (current) drug therapy; Translations: [OTH [facility] CURRENT DRUG THERAPY] Onset: 07-21-2021 Episodic Other male genital disorders (15 sources) Secondary erectile dysfunction; Translations: [Male erectile dysfunction, unspecified] Onset: 07-29-2023 07-29-2023 Chronic Other nervous system disorders (1 source) Other chronic pain; Translations: [OTHER CHRONIC PAIN] Onset: 07-21-2021 Chronic Other non-traumatic joint disorders (17 sources) Pain in right knee; Translations: [Pain in joint, lower leg] Onset: 07-29-2023 07-29-2023 Episodic Other upper respiratory infections (3 sources) Upper respiratory infection; Translations: [Acute upper respiratory infection, unspecified] 07-30-2024 Episodic Pathological fracture (1 source) Personal history of (healed) other pathological fracture; Translations: [PERS HX HEALED OTH PATHOLOGICAL FX] Onset: 02-06-2022 Episodic Residual codes; unclassified (1 source) Persistent insomnia; Translations: [Insomnia, unspecified] Onset: 07-29-2023 07-29-2023 Episodic Respiratory failure; insufficiency; arrest (adult) (1 source) Chronic respiratory failure with hypoxia; Translations: [Chronic respiratory failure with hypoxia] Onset: 08-06-2024 Chronic Schizophrenia and other psychotic disorders (20 sources) Schizophrenia, unspecified; 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] Onset: 05-10-2021 07-29-2023 Chronic Spondylosis; intervertebral disc disorders; other back problems (20 sources) Other intervertebral disc degeneration, lumbar region; [...] Classification Problem Date Documented Da te Episodic/Chronic Mood disorders (7 sources) Mood disorders Onset: 07-30-2024 07-30-2024 Nonspecific chest pain (4 sources) Chest pain, unspecified; Translations: [CHEST PAIN UNSPECIFIED] Onset: 05-08-2021 Episodic Other aftercare (14 sources) Long-term current use of drug therapy; Translations: [Other senior care (current) drug therapy] Onset: 05-21-2024 05-21-2024 Episodic Other connective tissue disease (15 sources) Ganglion cyst of left wrist; Translations: [Ganglion, left wrist] Onset: 07-29-2023 07-29-2023 Episodic Other non-traumatic joint disorders (15 sources) Instability of joint of right knee; Translations: [Other instability, right knee] Onset: 07-29-2023 07-29-2023 Episodic Other screening for suspected conditions (not mental disorders or infectious disease) (15 sources) Encounter for screening for malignant neoplasm of prostate; Translations: [Patient encounter status] Onset: 04-25-2021 05-21-2024 Episodic Pneumonia (except that caused by tuberculosis or sexually transmitted disease) (15 sources) Pneumonia; Translations: [Pneumonia, unspecified organism] Onset: 07-29-2023 Resolved: 05-21-2024 07-29-2023 Episodic Residual codes; unclassified (16 sources) Edema of lower extremity; Translations: [Localized edema] Onset: 07-29-2023 07-29-2023 Episodic Respiratory failure; insufficiency; arrest (adult) (15 sources) Acute respiratory failure; Translations: [Acute respiratory failure with hypoxia] Onset: 07-29-2023 Resolved: 05-21-2024 07-29-2023 Episodic Substance-related disorders (1 source) Cannabis use, unspecified, uncomplicated; Translations: [CANNABIS USE UNS UNCOMPLICATED] Onset: 05-10-2021 Episodic Unclassified (1 source) LOW BACK PAIN, UNSPECIFIED; Translations: [LOW BACK PAIN, UNSPECIFIED] Onset: 08-13-2021 Results Test Name Value Interpretation Reference Range Facility ALL CBC WITH AUTO DIFFon Erythrocyte distribution width (RBC) [Ratio] 12.7 % 11.0 - 15.0 % [facility] Hematocrit (Bld) [Volume fraction] 42 % 42.0 - 54.0 % [facility] Hemoglobin (Bld) [Mass/Vol] 14 g/dL 14.0 - 18.0 g/dL [facility] Interpretation and review of laboratory results Abnormal [facility] MCH (RBC) [Entitic mass] 31.7 pg 25.9 - 34.0 pg [facility] MCHC (RBC) [Mass/Vol] 33.3 g/dL 29.9 - 35.2 g/dL [facility] MCV (RBC) [Entitic vol] 95.2 fL High 80.0 - 94.0 fL [facility] Platelet mean volume (Bld) [Entitic vol] 9.5 fL 9.5 - 13.5 fL [facility] PLT [address] [facility] RBC 4.41 Low [facility] WBC 15.7 High [facility] ALL HEMOGLOBINon 09-18-2023 Hemoglobin (Bld) [Mass/Vol] 15.1 g/dL 14.0 - 18.0 g/dL [facility] CBC AUTO DIFFon 02-03-2022 BASO # 0.1 103/ul Normal 0.0-0.1 [facility] Comment on above: Performed By: #### C BC #### [facility] [address] [place] [address] Dr. Mike Lynn Basophils/100 WBC (Bld) 0.4 % Normal 0.2-2.0 [facility] Comment on above: Performed By: #### C BC #### [facility] [address] [place] [address] Dr. Mike Lynn EO # 0.2 103/ul Normal 0.0-0.7 [facility] Comment on above: Performed By: #### C BC #### [facility] [address] [place] [address] Dr. Mike Lynn Eosinophils/100 WBC (Bld) 1.8 % Normal 0.9-7.0 [facility] Comment on above: Performed By: #### C BC #### [facility] [address] [place] [address] Dr. Mike Lynn Erythrocyte distribution width (RBC) [Ratio] 12.7 % Normal 11.0-15.0 [facility] Comment on above: Performed By: #### C BC #### [facility] [address] [place] [address] Dr. Mike Lynn Hematocrit (Bld) [Volume fraction] 42.9 % Normal 42.0-54.0 [facility] Comment on above: Performed By: #### C BC #### [facility] [address] [place] [address] Dr. Mike Lynn Hemoglobin (Bld) [Mass/Vol] 14.5 g/dL Normal 14.0-18.0 [facility] Comment on above: Performed By: #### C BC #### [facility] [address] [place] [address] Dr. Mike Lynn IG # 0.03 10e3/ul Normal 0.00-0.03 [facility] Comment on above: Performed By: #### C BC #### [facility] [address] [place] [address] Dr. Mike Lynn IG % 0.3 % Normal 0.0-0.5 [facility] Comment on above: Performed By: #### C BC #### [facility] [address] [place] [address] Dr. Mike Lynn LYMPH # 3.5 103/ul Normal 1.2-3.8 [facility] Comment on above: Performed By: #### C BC #### [facility] [address] [place] [address] Dr. Mike Lynn Lymphocytes/100 WBC (Bld) 29.6 % Normal 20.5-60.0 [facility] Comment on above: Performed By: #### C BC #### [facility] [address] [place] [address] Dr. Mike Lynn MANUAL DIFF REQ NO Normal [facility] Comment on above: Performed By: #### C BC #### [facility] [address] [place] [address] Dr. Mike Lynn MCH (RBC) [Entitic mass] 31.9 pg Normal 25.9-34.0 [facility] Comment on above: Performed By: #### C BC #### [facility] [address] [place] [address] Dr. Mike Lynn MCHC (RBC) [Mass/Vol] 33.8 g/dL Normal 29.9-35.2 [facility] Comment on above: Performed By: #### C BC #### [facility] [address] [place] [address] Dr. Mike Lynn MCV (RBC) [Entitic vol] 94.3 fL Critically high 80.0-94.0 [facility] Comment on above: Performed By: #### C BC #### [facility] [address] [place] [address] Dr. Mike Lynn MONO # 0.9 103/ul Critically high 0.3-0.8 [facility] Comment on above: Performed By: #### C BC #### [facility] [address] [place] [address] Dr. Mike Lynn Monocytes/100 WBC (Bld) 7.8 % Normal 1.7-12.0 [facility] Comment on above: Performed By: #### C BC #### [facility] [address] [place] [address] Dr. Mike Lynn NEUT # 7.2 103/ul Critically high 1.4-6.5 [facility] Comment on above: Performed By: #### C BC #### [facility] [address] [place] [address] Dr. Mike Lynn Neutrophils/100 WBC (Bld) 60.1 % Normal 43.0-75.0 [facility] Comment on above: Performed By: #### C BC #### [facility] [address] [place] [address] Dr. Mike Lynn Platelet mean volume (Bld) [Entitic vol] 9.3 fL Critically low 9.5-13.5 [facility] Comment on above: Performed By: #### C BC #### [facility] [address] [place] [address] Dr. Mike Lynn PLT 218 103/ul Normal 150-450 [facility] Comment on above: Performed By: #### C BC #### [facility] [address] [place] [address] Dr. Mike Lynn RBC 4.55 106/ul Critically low 4.70-6.10 [facility] Comment on above: Performed By: #### C BC #### [facility] [address], [place] [address] Dr. Mike Lynn WBC 11.9 103/ul Critically high 4.0-11.0 [facility] Comment on above: Performed By: #### C BC #### [facility] [address], [place] [address] LSPINE WO CONon [...] Marcy MEDINA Date: 2022-02-03 00:41 Normal [facility] PROF 14(COMP METB)on 022 Albumin [Mass/Vol] 3.5 g/dL Normal 3.4-5.0 [facility] [place] Comment on above: Performed By: #### C MP #### [facility] [address], [place] [address] Dr. Mike Lynn Albumin/Globulin [Mass ratio] 1.1 {ratio} Normal [facility] Comment on above: Performed By: #### C MP #### [facility] [address] [place] [address] [address] Mike Lynn ALP [Catalytic activity/Vol] 65 U/L Normal 46-116 [facility] Comment on above: Performed By: #### C MP #### [facility] [address] [place] [address] [address] Mike Lynn ALT [Catalytic activity/Vol] 20 U/L Normal 16-63 [facility] Comment on above: Performed By: #### C MP #### [facility] [address] [place] [address] [address] Mike Lynn Anion gap [Moles/Vol] 11.1 mmol/L Normal [facility] Comment on above: Performed By: #### C MP #### [facility] [address] [place] [address] Dr. Mike Lynn AST [Catalytic activity/Vol] 12 U/L Critically low 15-37 [facility] Comment on above: Performed By: #### C MP #### [facility] [address] [place] [address] Dr. Mike Lynn Bilirubin [Mass/Vol] 0.3 mg/dL Normal 0.2-1.0 [facility] Comment on above: Performed By: #### C MP #### [facility] [address] [place] [address] Dr. Mike Lynn Calcium [Mass/Vol] 8.9 mg/dL Normal 8.5-10.1 [facility] [place] Comment on above: Performed By: #### C MP #### [facility] [address] [place] [address] [address] Mike Lynn Chloride [Moles/Vol] 104 mmol/L Normal 98-107 [facility] Comment on above: Performed By: #### C MP #### [facility] [address] [place] [address] Dr. Mike Lynn CO2 [Moles/Vol] 31.3 mmol/L Normal 21.0-32.0 [facility] Comment on above: Performed By: #### C MP #### [facility] [address] [place] [address] [address] Mike Lynn Creatinine [Mass/Vol] 1.49 mg/dL Critically high 0.70-1.30 [facility] Comment on above: Performed By: #### C MP #### [facility] [address] [place] [address] [address] Mike Lynn EGFR-AF SENEGALESE 60 mL/min/1.73m2 Normal >=60 [facility] Comment on above: Performed By: #### C MP #### [facility] [address] [place] [address] [address] Mike Lynn EGFR-NON AF SENEGALESE 50 mL/min/1.73m2 Critically low >=60 [facility] Comment on above: Performed By: #### C MP #### [facility] [address] [address] [address] Mike Lynn Globulin (S) [Mass/Vol] 3.3 g/dL Normal [facility] Comment on above: Performed By: #### C MP #### [facility] [address] [address] [address] Mike Lynn Glucose [Mass/Vol] 115 mg/dL Critically high 74-106 [facility] Comment on above: Performed By: #### C MP #### [facility] [address] [address] [address] Mike Lynn Potassium [Moles/Vol] 3.4 mmol/L Critically low 3.5-5.1 [facility] Comment on above: Performed By: #### C MP #### [facility] [address] [address] [address] Mike Lynn Protein [Mass/Vol] 6.8 g/dL Normal 6.4-8.2 [facility] Comment on above: Performed By: #### C MP #### [facility] [address] [address] [address] Mike Lynn Sodium [Moles/Vol] 143 mmol/L Normal 136-145 [facility] [place] Comment on above: Performed By: #### C MP #### [facility] [address], [place] [address] Dr. Mike Lynn Urea nitrogen [Mass/Vol] 9.0 mg/dL Normal 7.0-18.0 [facility] Comment on above: Performed By: #### C MP #### [facility] [address], [place] [address] Dr. Mike Lynn Urea nitrogen/Creatinine [Mass ratio] 6.0 mg/mg Normal [facility] Comment on above: Performed By: #### C MP #### [facility] [address], [place] [address] Dr. Mike Lynn MRI LSPINE WO CONon [...] RICCARDO ROJAS Date: 2021-09-28 15:57 Normal [facility] XR LSPINE 2_3 VIEWSon 2020 XR [...] RICCARDO ROJAS Date: 2021-07-25 10:20 Normal [facility] BNPon 05-08-2021 Natriuretic peptide B (Bld) [Mass/Vol] 127.0 pg/mL Normal <=900.0 [facility] Comment on above: Performed By: #### C MP, BNP, HSTROPN #### [facility] [address] [address] [address] Mike Lynn CBC AUTO DIFFon 05-08-2021 BASO # 0.1 103/ul Normal 0.0-0.1 [facility] Comment on above: Performed By: #### E RUR #### [facility] [address] [address] [address] Mike Lynn Basophils/100 WBC (Bld) 0.4 % Normal 0.2-2.0 [facility] [place] [facility] Comment on above: Performed By: #### E RUR #### [facility] [address] [address] [address] Mike Lynn EO # 0.0 103/ul Normal 0.0-0.7 [facility] [place] [facility] Comment on above: Performed By: #### E RUR #### [facility] [address] [address] [address] Mike Lynn Eosinophils/100 WBC (Bld) 0.2 % Critically low 0.9-7.0 [facility] [place] [facility] Comment on above: Performed By: #### E RUR #### [facility] [address] [address] [address] Mike Lynn Erythrocyte distribution width (RBC) [Ratio] 12.7 % Normal 11.0-15.0 [facility] Comment on above: Performed By: #### E RUR #### [facility] [address] [place] [address] Dr. Mike Lynn Hematocrit (Bld) [Volume fraction] 45.0 % Normal 42.0-54.0 [facility] Comment on above: Performed By: #### E RUR #### [facility] [address] [place] [address] Dr. Mike Lynn Hemoglobin (Bld) [Mass/Vol] 15.3 g/dL Normal 14.0-18.0 [facility] Comment on above: Performed By: #### E RUR #### [facility] [address] [place] [address] Dr. Mike Lynn IG # 0.10 10e3/ul Critically high 0.00-0.03 [facility] Comment on above: Performed By: #### E RUR #### [facility] [address] [place] [address] Dr. Mike Lynn IG % 0.5 % Normal 0.0-0.5 [facility] Comment on above: Performed By: #### E RUR #### [facility] [address] [place] [address] Dr. Mike Lynn LYMPH # 5.2 103/ul Critically high 1.2-3.8 [facility] Comment on above: Performed By: #### E RUR #### [facility] [address] [place] [address] Dr. Mike Lynn Lymphocytes/100 WBC (Bld) 26.4 % Normal 20.5-60.0 [facility] Comment on above: Performed By: #### E RUR #### [facility] [address] [place] [address] Dr. Mike Lynn MANUAL DIFF REQ NO Normal [facility] Comment on above: Performed By: #### E RUR #### [facility] [address] [address] [address] Mike Lynn MCH (RBC) [Entitic mass] 31.2 pg Normal 25.9-34.0 [facility] Comment on above: Performed By: #### E RUR #### [facility] [address] [place] [address] Dr. Mike Lynn MCHC (RBC) [Mass/Vol] 34.0 g/dL Normal 29.9-35.2 [facility] Comment on above: Performed By: #### E RUR #### [facility] [address] [place] [address] Dr. Mike Lynn MCV (RBC) [Entitic vol] 91.8 fL Normal 80.0-94.0 [facility] Comment on above: Performed By: #### E RUR #### [facility] [address] [place] [address] Dr. Mike Lynn MONO # 1.4 103/ul Critically high 0.3-0.8 [facility] Comment on above: Performed By: #### E RUR #### [facility] [address] [place] [address] Dr. Mike Lynn Monocytes/100 WBC (Bld) 7.0 % Normal 1.7-12.0 [facility] Comment on above: Performed By: #### E RUR #### [facility] [address] [place] [address] Dr. Mike Lynn NEUT # 12.9 103/ul Critically high 1.4-6.5 [facility] Comment on above: Performed By: #### E RUR #### [facility] [address] [place] [address] Dr. Mike Lynn Neutrophils/100 WBC (Bld) 65.5 % Normal 43.0-75.0 [facility] Comment on above: Performed By: #### E RUR #### [facility] [address] [place] [address] Dr. Mike Lynn Platelet mean volume (Bld) [Entitic vol] 9.9 fL Normal 9.5-13.5 [facility] [place] [facility] Comment on above: Performed By: #### E RUR #### [facility] [address] [address] [address] Mike Lynn PLT 244 103/ul Normal 150-450 [facility] Comment on above: Performed By: #### E RUR #### [facility] [address] [address] [address] Mike Lynn RBC 4.90 106/ul Normal 4.70-6.10 [facility] Comment on above: Performed By: #### E RUR #### [facility] [address] [address] [address] Mike Lynn WBC 19.7 103/ul Critically high 4.0-11.0 [facility] Comment on above: Performed By: #### E RUR #### [facility] [address] [address] [address] Mike Lynn Covid-19 PCR ([facility])on 04-13 SARS-CoV-2 (COVID-19) RNA MECHE+probe Ql (Unsp spec) Not detected Normal NOT DETECTED [facility] Comment on above: Result Comment: This test is not yet approved or cleared by the [place] FDA. When there are no FDA-approved or cleared tests available, and other criteria are met, FDA can make tests available under an emergency access mechanism called an Emergency Use Authorization (EUA). The EUA for this test is supported by the [employer] of Health and Human Service's (HHS's) declaration [...] SARS-CoV-2. Performed By: #### E RUR #### [facility] [address] [place] [address] Dr. Mike Lynn ER URINE PROFILEon 1 Bilirubin Ql (U) Negative Normal NEGATIVE [facility] Comment on above: Performed By: #### E RUR #### [facility] [address] [place] [address] Dr. Mike Lynn Clarity (U) CLEAR Normal CLEAR [facility] Comment on above: Performed By: #### E RUR #### [facility] [address] [place] [address] Dr. Mike Lynn Color (U) YELLOW Normal YELLOW [facility] Comment on above: Performed By: #### E RUR #### [facility] [address] [place] [address] Dr. Mike BARR A micrscopic examination will be performed if indicated. Normal [facility] Comment on above: Performed By: #### E RUR #### [facility] [address] [place] [address] Dr. Mike Lynn Glucose Ql (U) Negative Normal NEGATIVE [facility] Comment on above: Performed By: #### E RUR #### [facility] [address] [place] [address] Dr. Mike Lynn Hemoglobin Ql (U) Negative Normal NEGATIVE [facility] Comment on above: Performed By: #### E RUR #### [facility] [address] [place] [address] Dr. Mike Lynn Ketones Ql (U) TRACE Abnormal NEGATIVE [facility] Comment on above: Performed By: #### E RUR #### [facility] [address] [place] [address] Dr. Mike Lynn LEUKOCYTES Negative Normal NEGATIVE [facility] Comment on above: Performed By: #### E RUR #### [facility] [address] [place] [address] Dr. Mike Lynn Nitrite Ql (U) Negative Normal NEGATIVE [facility] Comment on above: Performed By: #### E RUR #### [facility] [address] [place] [address] Dr. Mike Lynn pH (U) 7.5 [pH] Normal 5-9 [facility] Comment on above: Performed By: #### E RUR #### [facility] [address] [place] [address] Dr. Mike Lynn SPEC GRAVITY 1.020 Normal 1.005-<=1.025 [facility] Comment on above: Performed By: #### E RUR #### [facility] [address] [place] [address] Dr. Mike Lynn UA PROTEIN Negative Normal NEGATIVE/ TRACE [facility] Comment on above: Performed By: #### E RUR #### [facility] [address] [place] [address] Dr. Mike Lynn UR MICRO IND NOT INDICATED Normal [facility] Comment on above: Performed By: #### E RUR #### [facility] [address] [place] [address] Dr. Mike Lynn Urobilinogen Qn (U) 0.2 {Gonzalo'U}/dL Normal 0.2 - 1. 0 [facility] Comment on above: Performed By: #### E RUR #### [facility] [address] [place] [address] Dr. Mike Lynn PROF 14(COMP METB)on 021 Albumin [Mass/Vol] 4.1 g/dL Normal 3.5-5.0 [facility] [place] Comment on above: Performed By: #### C MP, BNP, HSTROPN #### [facility] [address] [place] [address] Dr. Mike Lynn Albumin/Globulin [Mass ratio] 1.1 {ratio} Normal [facility] Comment on above: Performed By: #### C MP, BNP, HSTROPN #### [facility] [address] [place] [address] Dr. Mike Lynn ALP [Catalytic activity/Vol] 75 U/L Normal 38-126 [facility] Comment on above: Performed By: #### C MP, BNP, HSTROPN #### [facility] [address] [place] [address] Dr. Mike Lynn ALT [Catalytic activity/Vol] 20 U/L Critically low 21-72 [facility] Comment on above: Performed By: #### C MP, BNP, HSTROPN #### [facility] [address] [place] [address] Dr. Mike Lynn Anion gap [Moles/Vol] 13.3 mmol/L Normal [facility] Comment on above: Performed By: #### C MP, BNP, HSTROPN #### [facility] [address] [place] [address] Dr. Mike Lynn AST [Catalytic activity/Vol] 19 U/L Normal 17-59 [facility] Comment on above: Performed By: #### C MP, BNP, HSTROPN #### [facility] [address] [place] [address] Dr. Mike Lynn Bilirubin [Mass/Vol] 0.4 mg/dL Normal 0.2-1.3 [facility] Comment on above: Performed By: #### C MP, BNP, HSTROPN #### [facility] [address] [place] [address] Dr. Mike Lynn Calcium [Mass/Vol] 9.4 mg/dL Normal 8.4-10.2 [facility] Comment on above: Performed By: #### C MP, BNP, HSTROPN #### [facility] [address] [place] [address] Dr. Mike Lynn Chloride [Moles/Vol] 104 mmol/L Normal 98-107 [facility] Comment on above: Performed By: #### C MP, BNP, HSTROPN #### [facility] [address] [place] [address] Dr. Mike Lynn CO2 [Moles/Vol] 25.9 mmol/L Normal 22.0-30.0 [facility] Comment on above: Performed By: #### C MP, BNP, HSTROPN #### [facility] [address] [place] [address] Dr. Mike Lynn Creatinine [Mass/Vol] 1.29 mg/dL Critically high 0.66-1.25 [facility] Comment on above: Performed By: #### C MP, BNP, HSTROPN #### [facility] [address] [place] [address] Dr. Mike Lynn EGFR-AF SENEGALESE >60 Normal >=60 [facility] Comment on above: Performed By: #### C MP, BNP, HSTROPN #### [facility] [address] [place] [address] Dr. Mike Lynn EGFR-NON AF SENEGALESE 59 mL/min/1.73m2 Critically low >=60 [facility] Comment on above: Performed By: #### C MP, BNP, HSTROPN #### [facility] [address] [place] [address] Dr. Mike Lynn Globulin (S) [Mass/Vol] 3.8 g/dL Normal [facility] Comment on above: Performed By: #### C MP, BNP, HSTROPN #### [facility] [address] [place] [address] Dr. Mike Lnyn Glucose [Mass/Vol] 99 mg/dL Normal 74-106 [facility] Comment on above: Performed By: #### C MP, BNP, HSTROPN #### [facility] [address] [place] [address] Dr. Mike Lynn Potassium [Moles/Vol] 3.2 mmol/L Critically low 3.4-5.0 [facility] Comment on above: Performed By: #### C MP, BNP, HSTROPN #### [facility] [address] [place] [address] Dr. Mike Lynn Protein [Mass/Vol] 7.9 g/dL Normal 6.1-8.2 [facility] Comment on above: Performed By: #### C MP, BNP, HSTROPN #### [facility] [address] [place] [address] Dr. Mike Lynn Sodium [Moles/Vol] 140 mmol/L Normal 137-145 [facility] Comment on above: Performed By: #### C MP, BNP, HSTROPN #### [facility] [address] [place] [address] Dr. Mike Lynn Urea nitrogen [Mass/Vol] 9.0 mg/dL Normal 9.0-20.0 [facility] Comment on above: Performed By: #### C MP, BNP, HSTROPN #### [facility] [address] [place] [address] Dr. Mike Lynn Urea nitrogen/Creatinine [Mass ratio] 7.0 mg/mg Normal [facility] Comment on above: Performed By: #### C MP, BNP, HSTROPN #### [facility] [address] [place] [address] Dr. Mike Lynn PROTIMEon 05-08-2021 INR Coag (PPP) [Relative time] 0.97 {INR} Normal [facility] Comment on above: Performed By: #### E RUR #### [facility] [address] [place] [address] Dr. Mike Lynn INR GUIDELINES SEE BELOW Normal [facility] Comment on above: Result Comment: JEROME RED INR: 2.0 - 3.0 CONDITIONS NOT LISTED BELOW 2.5 - 3.5 FOR PROSTHETIC HEART VALVE REPLACEMENT 2.5 - 3.5 RECURRENT THROMBOSIS Performed By: #### E RUR #### [facility] [address] [place] [address] Dr. Mike Lynn PT Coag (PPP) [Time] 10.5 s Normal 9.0-11.6 [facility] Comment on above: Performed By: #### E RUR #### [facility] [address] [place] [address] Dr. Mike Lynn PTTon 05-08-2021 aPTT Coag (Bld) [Time] 26.2 s Normal 22.3-36.2 [facility] Comment on above: Performed By: #### E RUR #### [facility] [address] [place] [address] Dr. Mike Lynn SYMPTOMATIC COVID-19 ANTIGEN on 05-08-2021 EUA Statement SEE BELOW Normal [facility] Comment on above: Result Comment: This [...] sooner. Performed By: #### E RUR #### [facility] [address] [place] [address] Dr. Mike Lynn SARS-CoV-2 (COVID-19) RNA MECHE+probe Ql (Unsp spec) Negative Normal NEGATIVE [facility] Comment on above: Result Comment: CONF IRMATION BY PCR PENDING PER CDC GUIDELINES/ SYMPTOMATIC PATIENT. Performed By: #### E RUR #### [facility] [address] [place] [address] Dr. Mike Lynn TROPONIN, HIGH SENSITIVITYon 05-08-2021 HSTROP 7.9 pg/mL Normal 4.0-42.2 [facility] Comment on above: Result Comment: CUT- OFF POINTS HAVE BEEN ESTABLISHED BASED ON THE FOURTH UNIVERSAL DEFINITIONS OF MYOCARDIAL INFARCTION. THE UPPER REFERENCE LIMIT (URL) OF TROPONIN, DEFINED THE 99TH PERCENTILE OF cTnI DISTRIBUTION IN A REFERENCE POPULATION, HAS BEEN CONFIRMED THE DECISION THRESHOLD FOR [place] DIAGNOSIS. Performed By: #### A 1C #### [facility] [address] [place] [address] Claribel Avila HSTROP 7.8 pg/mL Normal 4.0-42.2 [facility] Comment on above: Result Comment: CUT- OFF POINTS HAVE BEEN ESTABLISHED BASED ON THE FOURTH UNIVERSAL DEFINITIONS OF MYOCARDIAL INFARCTION. THE UPPER REFERENCE LIMIT (URL) OF TROPONIN, DEFINED THE 99TH PERCENTILE OF cTnI DISTRIBUTION IN A REFERENCE POPULATION, HAS BEEN CONFIRMED THE DECISION THRESHOLD FOR [place] DIAGNOSIS. Performed By: #### C MP, BNP, HSTROPN #### [facility] [address] [place], [place] [id number] Dr. Mike Lynn XR CHEST 1 Von [...] JESSENIA CORBETT Date: 2021-05-08 17:45 Normal [facility] CBC AUTO DIFFon 04-10-2021 BASO # 0.1 103/ul Normal 0.0-0.1 [facility] Comment on above: Performed By: #### C BC #### [facility] [address] [place] [address] Claribel Margarita Basophils/100 WBC (Bld) 0.6 % Normal 0.2-2.0 [facility] Comment on above: Performed By: #### C BC #### [facility] [address] [place] [address] Claribel Margarita EO # 0.3 103/ul Normal 0.0-0.7 [facility] Comment on above: Performed By: #### C BC #### [facility] [address] [place] [address] Claribel Margarita Eosinophils/100 WBC (Bld) 2.2 % Normal 0.9-7.0 [facility] Comment on above: Performed By: #### C BC #### [facility] [address] [place] [address] Claribel Margarita Erythrocyte distribution width (RBC) [Ratio] 13.1 % Normal 11.0-15.0 [facility] Comment on above: Performed By: #### C BC #### [facility] [address] [place] [address] Claribel Margarita Hematocrit (Bld) [Volume fraction] 44.2 % Normal 42.0-54.0 [facility] Comment on above: Performed By: #### C BC #### [facility] [address] [id number] Claribel Margarita Hemoglobin (Bld) [Mass/Vol] 14.3 g/dL Normal 14.0-18.0 [facility] Comment on above: Performed By: #### C BC #### [facility] [address] [place], [place] [id number] Claribel Margarita IG # 0.07 10e3/ul Critically high 0.00-0.03 [facility] Comment on above: Performed By: #### C BC #### [facility] [address] [place], [place] [id number] Claribel Margarita IG % 0.5 % Normal 0.0-0.5 [facility] Comment on above: Performed By: #### C BC #### [facility] [address] [place] [address] Claribel Margarita LYMPH # 3.9 103/ul Critically high 1.2-3.8 [facility] Comment on above: Performed By: #### C BC #### [facility] [address] [place] [address] Claribel Margarita Lymphocytes/100 WBC (Bld) 29.6 % Normal 20.5-60.0 [facility] Comment on above: Performed By: #### C BC #### [facility] [address] [place], [place] [id number] Claribeltoyin Deckeren MANUAL DIFF REQ NO Normal [facility] Comment on above: Performed By: #### C BC #### [facility] [address] [place], [place] [id number] Claribel Margarita MCH (RBC) [Entitic mass] 31.5 pg Normal 25.9-34.0 [facility] Comment on above: Performed By: #### C BC #### [facility] [address] [place], [place] [id number] Claribel Margarita MCHC (RBC) [Mass/Vol] 32.4 g/dL Normal 29.9-35.2 [facility] Comment on above: Performed By: #### C BC #### [facility] [address] [place], [place] [id number] Claribel Margarita MCV (RBC) [Entitic vol] 97.4 fL Critically high 80.0-94.0 [facility] Comment on above: Performed By: #### C BC #### [facility] [address] [place], [place] [id number] Claribel Avila MONO # 0.8 103/ul Normal 0.3-0.8 [facility] Comment on above: Performed By: #### C BC #### [facility] [address] [place], [place] [id number] Claribel Avila Monocytes/100 WBC (Bld) 6.2 % Normal 1.7-12.0 [facility] Comment on above: Performed By: #### C BC #### [facility] [address] [place] [address] Claribel Avila NEUT # 8.1 103/ul Critically high 1.4-6.5 [facility] Comment on above: Performed By: #### C BC #### [facility] [address] [place] [address] Claribel Avila Neutrophils/100 WBC (Bld) 60.9 % Normal 43.0-75.0 [facility] Comment on above: Performed By: #### C BC #### [facility] [address] [place], [place] [id number] Claribel Avila Platelet mean volume (Bld) [Entitic vol] 10.3 fL Normal 9.5-13.5 [facility] Comment on above: Performed By: #### C BC #### [facility] [address] [place], [place] [id number] Claribel Avila PLT 219 103/ul Normal 150-450 [facility] Comment on above: Performed By: #### C BC #### [facility] [address] [place], [place] [id number] Claribeltoyin Avila RBC 4.54 106/ul Critically low 4.70-6.10 [facility] Comment on above: Performed By: #### C BC #### [facility] [address] [place], [place] [id number] Claribel Margarita WBC 13.3 103/ul Critically high 4.0-11.0 [facility] Comment on above: Performed By: #### C BC #### [facility] [address] [id number] Claribel Avila GLYCOHEMOGLOBIN A1Con 2020 ADA RECOMMENDATION ADA THERAPEUTIC TARG ET 6.0 - 7.0 ACTION SUGGESTED > 7.0 Normal [facility] Comment on above: Performed By: #### A 1C #### [facility] [address] [place] [address] Claribel Avila Glucose [Mass/Vol] 117 mg/dL Normal [facility] [place] Comment on above: Performed By: #### A 1C #### [facility] [address] [place] [address] Claribel Avila HbA1c (Bld) [Mass fraction] 5.7 % Normal <=6.0 [facility] Comment on above: Performed By: #### A 1C #### [facility] [address] [place] [address] Claribel Avila LIPID PROFILEon 04-10-2021 CHOL-HDL RATIO NORM SEE BELOW Normal [facility] Comment on above: Result Comment: 3.3 - 4.4 LOW RISK 4.4 - 7.1 AVERAGE RISK 7.1 - 11.0 MODERATE RISK >11.0 HIGH RISK Performed By: #### E RUR #### [facility] [address] [place] [address] Dr. Mike Lynn Cholesterol [Mass/Vol] 263 mg/dL Critically high <=200 [facility] Comment on above: Performed By: #### E RUR #### [facility] [address] [place] [address] Dr. Mike Lynn Cholesterol in HDL [Mass/Vol] 42 mg/dL Normal [facility] Comment on above: Performed By: #### E RUR #### [facility] [address] [place] [address] Dr. Mike Lynn Cholesterol in LDL [Mass/Vol] 170.2 mg/dL Normal [facility] Comment on above: Performed By: #### E RUR #### [facility] [address] [place] [address] Dr. Mike Lynn Cholesterol.total/Ch olesterol in HDL [Mass ratio] 6.3 {ratio} Normal [facility] Comment on above: Performed By: #### E RUR #### [facility] [address] [address] [address] Mike Lynn HDL NORMAL > or = 60 mg/dl - LO W CARDIOVASCULAR RISK <40 mg/dl - HIGH CARDIOVASCULAR RISK Normal [facility] Comment on above: Performed By: #### E RUR #### [facility] [address] [address] [address] Mike Lynn LDL CALC NORMAL SEE BELOW Normal [facility] Comment on above: Result Comment: <100 mg/dl OPTIMAL 100 - 129 mg/dl NEAR OR ABOVE OPTIMAL 130 - 159 mg/dl BORDERLINE HIGH 160 - 189 mg/dl HIGH >190 mg/dl VERY HIGH Performed By: #### E RUR #### [facility] [address] [address] [address] Mike Lynn Triglyceride [Mass/Vol] 254 mg/dL Critically high <=150 [facility] Comment on above: Performed By: #### E RUR #### [facility] [address] [address] [address] Mike Lynn VLDL CALC 50.8 mg/dL Normal [facility] Comment on above: Performed By: #### E RUR #### [facility] [address] [address] [address] Mike Lynn PROF CHEM 8 (BAS METB)on Anion gap [Moles/Vol] 10.7 mmol/L Normal [facility] Comment on above: Performed By: #### E RUR #### [facility] [address] [address] [address] Mike Lynn Calcium [Mass/Vol] 9.0 mg/dL Normal 8.4-10.2 [facility] [place] Comment on above: Performed By: #### E RUR #### [facility] [address] [address] [address] Mike Lynn Chloride [Moles/Vol] 104 mmol/L Normal 98-107 [facility] Comment on above: Performed By: #### E RUR #### [facility] [address] [address] [address] Mike Lynn CO2 [Moles/Vol] 31.1 mmol/L Critically high 22.0-30.0 [facility] Comment on above: Performed By: #### E RUR #### [facility] [address] [address] [address] Mike Lynn Creatinine [Mass/Vol] 1.18 mg/dL Normal 0.66-1.25 [facility] Comment on above: Performed By: #### E RUR #### [facility] [address] [address] [address] Mike Lynn EGFR-AF SENEGALESE >60 Normal >=60 [facility] Comment on above: Performed By: #### E RUR #### [facility] [address] [address] [address] Mike Lynn EGFR-NON AF SENEGALESE >60 Normal >=60 [facility] Comment on above: Performed By: #### E RUR #### [facility] [address] [address] [address] Mike Lynn Glucose [Mass/Vol] 86 mg/dL Normal 74-106 [facility] [place] Comment on above: Performed By: #### E RUR #### [facility] [address] [address] [address] Mike Lynn Potassium [Moles/Vol] 4.8 mmol/L Normal 3.4-5.0 [facility] Comment on above: Performed By: #### E RUR #### [facility] [address] [address] [address] Mike Lynn Sodium [Moles/Vol] 141 mmol/L Normal 137-145 [facility] Comment on above: Performed By: #### E RUR #### [facility] [address] [address] [address] Mike Lynn Urea nitrogen [Mass/Vol] 7.0 mg/dL Critically low 9.0-20.0 [facility] Comment on above: Performed By: #### E RUR #### [facility] [address] [address] [address] Mike Lynn Urea nitrogen/Creatinine [Mass ratio] 5.9 mg/mg Normal [facility] Comment on above: Performed By: #### E RUR #### [facility] [address] [address] [address] Mike SEGUNDOOTocyril 04-10-2021 AST [Catalytic activity/Vol] 19 U/L Normal 17-59 [facility] Comment on above: Performed By: #### E RUR #### [facility] [address] [address] [address] Mike SEGUNDOPTon 04-10-2021 ALT [Catalytic activity/Vol] 24 U/L Normal 21-72 [facility] Comment on above: Performed By: #### E RUR #### [facility] [address] [place] [address] Dr. Mike Lynn Vital Signs Date Time Vital Sign Value Performing Clinician Chago holcomb 01-27-2025 10:48-0400 Body height 174 cm Bruce Navas MD Work Phone: [facility] 01-27-2025 10:48-0400 Body mass index (BMI) [Ratio] 29.37 kg/m2 Bruce Navas MD Work Phone: [facility] 01-27-2025 10:48-0400 Body temperature 94.8 [degF] Bruce Navas MD Work Phone: [facility] 01-27-2025 10:48-0400 Body weight 88.91 kg Bruce Navas MD Work Phone: [facility] 01-27-2025 10:48-0400 Diastolic blood pressure 72 mm[Hg] Bruce Navas MD Work Phone: [facility] 01-27-2025 10:48-0400 Heart rate 108 /min Bruce Navas MD Work Phone: [facility] 01-27-2025 10:48-0400 Respiratory rate 18 /min Bruce Navas MD Work Phone: [facility] 01-27-2025 10:48-0400 SaO2% (BldA) [Mass fraction] 95 % Bruce Navas MD Work Phone: [facility] 01-27-2025 10:48-0400 Systolic blood pressure 140 mm[Hg] Bruce Navas MD Work Phone: [facility] 07-30-2024 10:30-0500 Body height 174 cm Bruce Navas MD Work Phone: [facility] 07-30-2024 10:30-0500 Body mass index (BMI) [Ratio] 30.42 kg/m2 Bruce Navas MD Work Phone: [facility] 07-30-2024 10:30-0500 Body temperature 97.5 [degF] Bruce Navas MD Work Phone: [facility] 07-30-2024 10:30-0500 Body weight 92.08 kg Bruce Navas MD Work Phone: [facility] 07-30-2024 10:30-0500 Diastolic blood pressure 70 mm[Hg] Bruce Navas MD Work Phone: [facility] 07-30-2024 10:30-0500 Heart rate 103 /min Bruce Navas MD Work Phone: [facility] 07-30-2024 10:30-0500 Respiratory rate 18 /min Bruce Navas MD Work Phone: [facility] 07-30-2024 10:30-0500 SaO2% (BldA) [Mass fraction] 96 % Bruce Navas MD Work Phone: [facility] 07-30-2024 10:30-0500 Systolic blood pressure 126 mm[Hg] Bruce Navas MD Work Phone: [facility] 05-21-2024 10:36-0400 Body height 174 cm Bruce Navas MD Work Phone: [facility] 05-21-2024 10:36-0400 Body mass index (BMI) [Ratio] 29.07 kg/m2 Bruce Navas MD Work Phone: [facility] 05-21-2024 10:36-0400 Body temperature 97.5 [degF] Bruce Navas MD Work Phone: [facility] 05-21-2024 10:36-0400 Body weight 88 kg Bruce Navas MD Work Phone: [facility] 05-21-2024 10:36-0400 Diastolic blood pressure 52 mm[Hg] Bruce Navas MD Work Phone: [facility] 05-21-2024 10:36-0400 Heart rate 119 /min Bruec Navas MD Work Phone: [facility] 05-21-2024 10:36-0400 Respiratory rate 20 /min Bruce Navas MD Work Phone: [facility] 05-21-2024 10:36-0400 SaO2% (BldA) [Mass fraction] 94 % Bruce Navas MD Work Phone: [facility] 05-21-2024 10:36-0400 Systolic blood pressure 100 mm[Hg] Bruce Navas MD Work Phone: [facility] Encounters Encounter Date Encounter Type Care Provider Facility Start: 01-27-2025 End: 01-27-2025 Bamboo flowsheet Bruce Navas MD Work Phone: [facility] Start: 01-27-2025 End: 01-27-2025 Bamboo flowsheet Bruce Navas MD Work Phone: [facility] Start: 01-27-2025 End: 01-27-2025 Office outpatient visit 25 minutes Bruce Navas MD Work Phone: [facility] Comment on above: Chronic obstructive pulmonary disease, unspecified COPD type (HCC) (Primary Dx); Degeneration of intervertebral disc of lumbar region with discogenic back pain and lower extremity pain; Chronic pain of both knees; Schizophrenia, undifferentiated (HCC); Generalized anxiety disorder ; Prediabetes Start: 01-13-2025 End: 01-13-2025 Refill Bruce Navas MD Work Phone: [facility] Comment on above: Upper respiratory tr act infection, unspecified type; Generalized anxiety disorder (CMS/HCC) Start: 12-23-2024 ambulatory Aldo Stockton acility:[facility] Start: 10-06-2024 End: 10-06-2024 Refill Bruce Navas MD Work Phone: [facility] Comment on above: Degeneration, interv ertebral disc, lumbar; Generalized anxiety disorder (CMS/HCC) Start: 08-06-2024 ambulatory [facility] Start: 07-30-2024 End: 07-30-2024 Bamboo flowsheet Bruce Navas MD Work Phone: [facility] Start: 07-30-2024 End: 07-30-2024 Bamboo flowsheet Bruce Navas MD Work Phone: [facility] Start: 07-30-2024 End: 07-30-2024 Patient encounter procedure Bruce Navas MD Work Phone: [facility] Work Phone: Start: 07-30-2024 End: 07-30-2024 Postop follow up visit related to original px Bruce Navas MD Work Phone: [facility] Comment on above: Medicare annual well ness visit, subsequent (Primary Dx); Upper respiratory tract infection, unspecified type Start: 07-30-2024 End: 07-30-2024 ambulatory BRUCE NAVAS Not Available Start: 07-10-2024 End: 07-13-2024 Refill Bruce Navas MD Work Phone: [facility] Comment on above: Generalized anxiety disorder (CMS/HCC) Start: 05-27-2024 End: 05-27-2024 Clinisync Result Encounter Bruce Navas MD Work Phone: [facility] Unsolicited Start: 05-27-2024 End: 05-27-2024 Clinisync Result Encounter Bruce Navas MD Work Phone: [facility] Unsolicited Start: 05-21-2024 End: 05-21-2024 Bamboo flowsheet Bruce Navas MD Work Phone: [facility] Start: 05-21-2024 End: 05-21-2024 Bamboo flowsheet Bruce Navas MD Work Phone: [facility] [...] 05-21-2024 ambulatory BRUCE NAVAS Not Available Start: 05-14-2024 End: 05-14-2024 Refill Bruce Navas [...] Data Provider [facility] Unsolicited Start: 06-06-2022 End: 06-10-2022 ambulatory RAIMUNDO SAHA [facility] Start: 02-03-2022 End: 02-03-[address] BRUCE NAVAS Facility: Start: 09-28-2021 End: 09-29-[address] BRUCE NAVAS Facility:[facility] Start: 08-13-2021 End: 08-23-2021 ambulatory SHAIKH Nadia COHENWilson Facility:[facility] Start: 07-27-2021 End: 08-11-2021 ambulatory SHAIKH Nadia COHENWilson Facility:[facility] Start: 07-25-2021 End: 07-26-2021 ambulatory SHAIKH Nadia COHENWilson Facility:[facility] Start: 07-19-2021 End: 07-19-[address] BRUCE NAVAS Facility:[facility] Start: 05-08-2021 End: 05-08-[address] BRUCE NAVAS Facility:[facility] Start: 04-10-2021 End: 04-11-[address] BRUCE NAVAS Facility:[facility] Procedures Date Procedure Procedure Detail Performing Clinician Start: 05-27-2024 ALL CBC WITH AUTO DIFF Bruce Navas MD Work Phone: Start: 09-18-2023 ALL HEMOGLOBIN Generic External Data Provider Start: 04-10-[address] BRUCE LAWTON Comment on above: Performed By: #### P SAS #### [facility] [address] [place] [address] Claribel Avila Plan of Treatment Date Care Activity Detail Author Start: 12-06-2026 Screening for malign ant neoplasm of colon [facility] Start: 08-09-2025 End: 08-09-2025 Patient encounter procedure 08/09/2025 10:00 AM EST Office Visit [facility] [address] [place] [id number] Bruce Navas MD [address] [place] [address] [facility] Start: 07-30-2025 Medicare Annual Wellness (AWV) Medicare Annual Wellness (AWV) [facility] Start: 07-19-2025 Screening for malign ant neoplasm of lung Lung Cancer Screening Shared Decision Making [facility] Comment on above: Postponed from 12/18 (Other Medical Reasons) Start: 04-12-2025 Influenza vaccination Influenz a Vaccine (Season Ended) [facility] Start: 01-27-2025 End: 01-27-2026 Basic metabolic 1998 panel - Serum or Plasma Basic metabolic panel Lab Routine Prediabetes Expected: 01/27/2025 (Approximate), Expires: 01/27/2026 [facility] Comment on above: Expected: 01/27/2025 (Approximate), Expires: 01/27/2026 Start: 01-27-2025 End: 01-27-2026 Hemoglobin A1c/Hemoglobin.total in Blood Hemoglobin A1c Lab Routine Prediabetes Expected: 01/27/2025 (Approximate), Expires: 01/27/2026 [facility] Work Phone: Comment on above: Expected: 01/27/2025 (Approximate), Expires: 01/27/2026 Start: 01-27-2025 End: 01-27-2025 [facility] Comment on above: Arrived Start: 07-30-2024 End: 07-30-2024 Patient encounter procedure [facility] Comment on above: Arrived Start: 05-21-2024 End: 05-21-2025 Basic metabolic 1998 panel - Serum or Plasma Basic metabolic panel Lab Routine Encounter for long-term current use of medication Expected: 05/21/2024 (Approximate), Expires: 05/21/2025 [facility] Comment on above: Expected: 05/21/2024 (Approximate), Expires: 05/21/2025 Start: 05-21-2024 End: 05-21-2025 CBC W Auto Differential panel - Blood CBC and differential Lab Routine Encounter for long-term current use of medication Expected: 05/21/2024 (Approximate), Expires: 05/21/2025 [facility] Comment on above: Expected: 05/21/2024 (Approximate), Expires: 05/21/2025 Start: 05-21-2024 End: 05-21-2025 Hemoglobin A1c/Hemoglobin.total in Blood Hemoglobin A1c Lab Routine Prediabetes Expected: 05/21/2024 (Approximate), Expires: 05/21/2025 [facility] Work Phone: Comment on above: Expected: 05/21/2024 (Approximate), Expires: 05/21/2025 Start: 05-21-2024 End: 05-21-2025 Hepatic function 2000 panel - Serum or Plasma Hepatic function panel Lab Routine Encounter for long-term current use of medication Expected: 05/21/2024 (Approximate), Expires: 05/21/2025 [facility] Comment on above: Expected: 05/21/2024 (Approximate), Expires: 05/21/2025 Start: 05-21-2024 End: 05-21-2025 Lipid 1996 panel - Serum or Plasma Lipid panel Lab Routine Dyslipidemia (CMS/HCC) Expected: 05/21/2024 (Approximate), Expires: 05/21/2025 [facility] Comment on above: Expected: 05/21/2024 (Approximate), Expires: 05/21/2025 Start: 05-21-2024 End: 05-21-2025 Prostate specific Ag [Mass/volume] in Serum or Plasma PSA Lab Routine Screening PSA (prostate specific antigen) Expected: 05/21/2024 (Approximate), Expires: 05/21/2025 [facility] Comment on above: Expected: 05/21/2024 (Approximate), Expires: 05/21/2025 Start: 05-21-2024 End: 05-21-2024 Patient encounter procedure [facility] Comment on above: Arrived Start: 04-12-2024 Influenza vaccination Influenza Vacc ine (#1) [facility] Start: 10-14-2023 End: 10-14-2023 Patient encounter procedure 10/14/2023 1:45 PM EST Office Visit [facility] [address] [place] [address] Bruce Navas MD [address] [place] [phone] [facility] Start: 10-08-2023 End: 10-08-2023 Patient encounter procedure 10/08/2023 11:00 AM EST Office Visit [facility] [address] [place] [address] Bruce Navsa MD [address] [place] [phone] [facility] Start: 04-12-2023 Influenza vaccination Influenza Vacc ine (#1) [facility] Start: 1970 Medicare Annual Wellness (AWV) Medicare Annual Wellness (AWV) [facility] Start: 1970 Screening for malign ant neoplasm of colon [facility] Start: 1970 Screening for malign ant neoplasm of lung Lung Cancer Screening Shared Decision Making [facility] Payers Date Payer Category Payer Medicare [employer] MEDICARE ADVANTAGE [employer] MEDICARE [id number] 2023-Present [address] [address] [place] [address] [id number] 2023 Medicare (Managed Care) [employer] EDICARE ADVANTAGE [id number] 2023 Medicare [id number] 2022 Self-pay 2017 Medicaid [id number] 1970 Unknown [id number]. 593 1970 Unknown [id number] [id number]. 593 1970 Unknown [id number] [id number]. 593 1970 Unknown [id number] [id number]. 593 1970 Unknown [id number] 2.16.840.1.580904.3.579.2. 593 1970 Unknown [id number] 2.16.840.1.705432.3.579.2. 593 1970 Unknown [id number] [id number]. 593 1970 Unknown [id number] 2.16.840.1.191964.3.579.2. 593 1970 Unknown [id number] [id number]. 900 1970 Unknown [id number] [id number]. 1259 1970 Unknown [id number] [id number]. 1259 1970 Unknown [id number] [id number]. 1259 1959 Medicaid [id number] 1959 Medicare [id number] Social History Date Type Detail Facility Start: 07-29-2023 Tobacco smoking stat [facility] Ex-smoker [facility] Start: 07-22-1993 End: 07-22-2023 History of tobacco use Current smoker [facility] Start: 07-22-1993 End: 07-22-2023 History of tobacco use Cigarette Smoker [facility] Start: 07-29-2023 End: 07-30-2024 Cigarettes smoked current (pack per day) - Reported 1 [facility] Start: 07-29-2023 End: 05-21-2024 Tobacco use and exposure Smokeless tobacco non-user [facility] Start: 07-29-2023 End: 01-27-2025 Alcohol intake Lifetime non-drinker (finding) [facility] Start: 07-29-2023 End: 07-30-2024 Tobacco use panel [facility] Start: 1970 Sex Assigned At Not on file [facility] Start: 07-22-1993 Tobacco smoking stat [facility] Smokes tobacco daily [facility] History of Present illness Narrative 01-27-2025 Bruce Navas MD - 01/27/2025 11:27 AM Kaylan Navas MD - 01/27/2025 11:27 AM Kaylan Navas MD - 01/27/2025 11:26 AM Kaylan Navas MD - 01/27/2025 11:26 AM EDT Note Date & Type Note Facility 01-27-2025 History of Presen t illness Narrative Associated Problem(s): Schizophrenia, undifferentiated (HCC) Symptoms stable and continue medication. Follow up with psychiatry. Associated Problem(s): Pain in both knees Knees unsteady and script for braces for support. Associated Problem(s): Generalized anxiety disorder Symptoms controlled with medication. Use valium PRN. Associated Problem(s): Degeneration, intervertebral disc, lumbar Pain stable and continue celebrex and robaxin. Resume home PT exercises. Script for brace to patient. Associated Problem(s): COPD (chronic obstructive pulmonary disease) (HCC) [...] up with psychiatry. documented in this encounter [facility] History of Present illness Narrative 07-30-2024 Bruce Navas MD - 07/30/2024 10:58 AM ESTBruce Navas MD - 07/30/2024 10:30 AM EST Note Date & Type Note Facility 07-30-2024 History of Presen t illness Narrative Associated Problem(s): Medicare annual wellness visit, subsequent Reviewed labs. Discussed proper diet and regular aerobic exercise. Need aerobic exercise 5-6 days a week for 30 minutes at a time. Smaller portions and limit total calories. Cologuard normal in November. Tetanus every 10 years. Advised not to smoke. Images from the original note were not included. Subjective Patient ID: Edmund Brown is a 53 y.o. male who presents for Medicare Annual Wellness Visit Subsequent (WELLNESS/). Presents for medicare annual wellness visit. Patient feels well today. Weight up 10 pounds in the past year. Tries to stay active and exercise few days a week. Reports not exercising as much since colder out. Tries to watch diet and eat healthy. Increased fruits and vegetables. Smaller portions and limits snacking. Tries to limit total daily calories. Reviewed labs. Review of Systems Constitutional: Negative for fatigue. [...] There is no guarding or rebound. Musculoskeletal: General: Normal range of motion. Left lower leg: No edema. Neurological: General: No focal deficit present. Mental Status: He is alert. Cranial Nerves: No cranial nerve deficit. Deep Tendon Reflexes: Reflexes normal. Assessment/Plan Problem List Items Addressed This Visit Medicare annual wellness visit, subsequent - Primary Reviewed labs. Discussed proper diet and regular aerobic exercise. Need aerobic exercise 5-6 days a week for 30 minutes at a time. Smaller portions and limit total calories. Cologuard normal in November. Tetanus every 10 years. Advised not to smoke. documented in this encounter [facility] History of Present illness Narrative 05-21-2024 [...] Associated Problem(s): COPD (chronic obstructive pulmonary disease) ([facility]) Symptoms stable and continue inhalers. Follow up [...] This Visit COPD (chronic obstructive pulmonary disease) (CMS/HCC) Symptoms [...] Relevant Orders PSA documented in this encounter [facility] Evaluation note Note Date & Type Note Facility Evaluation note Diagnosis Lower extremity edema- Primary Edema Generalized anxiety disorder (CMS/HCC) Generalized anxiety disorder documented in this encounter [facility] Evaluation note Note Date & Type [...] hyperlipidemia documented in this encounter [facility] Evaluation note Note Date & Type Note Facility Evaluation note Diagnosis Degeneration, intervertebral disc, lumbar- Primary Degeneration of lumbar or lumbosacral intervertebral disc Chronic obstructive pulmonary disease, unspecified COPD type (CMS/HCC) Colon cancer screening Special screening for malignant neoplasms, colon Schizophrenia, undifferentiated (CMS/HCC) Other specified types of schizophrenia, unspecified condition Generalized anxiety disorder (CMS/HCC) Generalized anxiety disorder Primary insomnia Persistent disorder of initiating or maintaining sleep Degeneration of intervertebral disc of lumbar region [...] prostate Dyslipidemia (CMS/HCC) Other and unspecified hyperlipidemia Generalized anxiety disorder (CMS/HCC) Generalized anxiety disorder documented in this encounter [facility] Evaluation note Note Date & Type Note Facility Evaluation note Diagnosis Degeneration, intervertebral disc, lumbar- Primary Degeneration of lumbar or lumbosacral intervertebral disc Chronic obstructive pulmonary disease, unspecified COPD type (CMS/HCC) Colon cancer screening Special screening for malignant neoplasms, colon Schizophrenia, undifferentiated (CMS/HCC) Other specified types of schizophrenia, unspecified condition Generalized anxiety disorder (CMS/HCC) Generalized anxiety disorder Primary insomnia Persistent disorder of initiating or maintaining sleep Degeneration of intervertebral disc of lumbar region [...] prostate Dyslipidemia (CMS/HCC) Other and unspecified hyperlipidemia Medicare annual wellness visit, subsequent- Primary Upper respiratory tract infection, unspecified type documented in this encounter [facility] Evaluation note Note Date & Type Note Facility Evaluation note Diagnosis Degeneration, intervertebral disc, lumbar- Primary Degeneration of lumbar or lumbosacral intervertebral disc Chronic obstructive pulmonary disease, unspecified COPD type (CMS/HCC) Colon cancer screening Special screening for malignant neoplasms, colon Schizophrenia, undifferentiated (CMS/HCC) Other specified types of schizophrenia, unspecified condition Generalized anxiety disorder (CMS/HCC) Generalized anxiety disorder Primary insomnia Persistent disorder of initiating or maintaining sleep Degeneration of intervertebral disc of lumbar region [...] prostate Dyslipidemia (CMS/HCC) Other and unspecified hyperlipidemia Medicare annual wellness visit, subsequent- Primary Upper respiratory tract infection, unspecified type Degeneration, intervertebral disc, lumbar Degeneration of lumbar or lumbosacral intervertebral disc Generalized anxiety disorder (CMS/HCC) Generalized anxiety disorder documented in this encounter [facility] Evaluation note Note Date & Type Note Facility Evaluation note Diagnosis Degeneration, intervertebral disc, lumbar- Primary Degeneration of lumbar or lumbosacral intervertebral disc Chronic obstructive pulmonary disease, unspecified COPD type (CMS/HCC) Colon cancer screening Special screening for malignant neoplasms, colon Schizophrenia, undifferentiated (CMS/HCC) Other specified types of schizophrenia, unspecified condition Generalized anxiety disorder (CMS/HCC) Generalized anxiety disorder Primary insomnia Persistent disorder of initiating or maintaining sleep Degeneration of intervertebral disc of lumbar region [...] prostate Dyslipidemia (CMS/HCC) Other and unspecified hyperlipidemia Medicare annual wellness visit, subsequent- Primary Upper respiratory tract infection, unspecified type Upper respiratory tract infection, unspecified type Generalized anxiety disorder (CMS/HCC) Generalized anxiety disorder documented in this encounter [facility] Evaluation note Note Date & Type Note Facility Evaluation note Diagnosis Degeneration, intervertebral disc, lumbar- Primary Degeneration of lumbar or lumbosacral intervertebral disc Chronic obstructive pulmonary disease, unspecified COPD type (HCC) Colon cancer screening Special screening for malignant neoplasms, colon Schizophrenia, undifferentiated (HCC) Other specified types of schizophrenia, unspecified condition Generalized anxiety disorder Generalized anxiety disorder Primary insomnia Persistent disorder of initiating or maintaining sleep Degeneration of intervertebral disc of lumbar region with discogenic back pain and lower extremity pain- Primary Chronic obstructive pulmonary disease, unspecified COPD type (HCC) Schizophrenia, undifferentiated (HCC) Other specified types of schizophrenia, unspecified condition Generalized anxiety disorder Generalized anxiety disorder Primary insomnia Persistent disorder of initiating or maintaining sleep Encounter for long-term current use of medication Prediabetes Other abnormal glucose Screening PSA (prostate specific antigen) Special screening for malignant neoplasm of prostate Dyslipidemia Other and unspecified hyperlipidemia Medicare annual wellness visit, subsequent- Primary Upper respiratory tract infection, unspecified type Chronic obstructive pulmonary disease, unspecified COPD type (HCC)- Primary Degeneration of intervertebral disc of lumbar region with discogenic back pain and lower extremity pain Chronic pain of both knees Schizophrenia, undifferentiated (HCC) Other specified types of schizophrenia, unspecified condition Generalized anxiety disorder Generalized anxiety disorder Prediabetes Other abnormal glucose documented in this encounter [facility] Summary [...] and content) DATE CREATED AUTHOR 02/07/2022 [facility] DATE CREATED AUTHOR AUTHOR'S ORGANIZ ATION 06/10/2022 [facility] DATE CREATED AUTHOR AUTHOR'S ORGANIZ ATION 08/02/2024 [facility] DATE CREATED AUTHOR AUTHOR'S ORGANIZ ATION 08/09/2024 [facility] DATE CREATED AUTHOR AUTHOR'S ORGANIZ ATION 01/08/2025 [facility] Care Teams (unrecognized sec tion and content) [employer] Super[employer] Relationship Specialty Start Date End Date Bruce Navas MD PCP - General Family Medicine 01/30/23 [employer] Super[employer] Relationship Specialty Start Date End Date Bruce Navas MD [address] [place] [address] PCP - General Family Medicine 11/14/23 [employer] Supervisor Relationship Specialty Start Date End Date Bruce Navas MD [address] [place] [address] PCP - General Family Medicine 11/14/23 [employer] Supervisor Relationship Specialty Start Date End Date Bruce Navas MD [address] [place] [address] PCP - General Family Medicine 11/14/23 [employer] Supervisor Relationship Specialty Start Date End Date Bruce Navas MD [address] [place] [address] PCP - General Family Medicine 11/14/23 [employer] Supervisor Relationship Specialty Start Date End Date Bruce Navas MD [address] [place] [address] PCP - General Family Medicine 11/14/23 [employer] Supervisor Relationship Specialty Start Date End Date Bruce Navas MD [address] [place] [address] PCP - General Family Medicine 11/14/23 [employer] Supervisor Relationship Specialty Start Date End Date Bruce Navas MD [address] [place] [address] PCP - General Family Medicine 11/14/23 [employer] Supervisor Relationship Specialty Start Date End Date Bruce Navas MD [address] [place] [address] PCP - General Family Medicine 11/14/23 [employer] Supervisor Relationship Specialty Start Date End Date Bruce Navas MD [address] [place] [address] PCP - General Family Medicine 11/14/23 Reason for Visit (unrecogniz ed section and content) Reason Comments Med Refill Reason Comments Follow-up 6 m Hip Pain Reason Comments Medicare Annual Wellness Visit Subsequen t WELLNESS Reason Comments Follow-up 6m FOR RECORDS PERTAINING TO PATIENTS WHO ARE [...] BE BASED ON THE PRIMARY CLINICAL RECORDS. [employer] provides no warranty or guarantee of the accuracy or completeness of information in this document.
[2025-01-28 10:46] LABS: Anion Gap 10.5; BUN Creatinine Ratio 10.7; Calcium 9.7 mg/dL (8.5-10.1); Chloride 100 mmol/L (98-107); Estimated GFR (African America >60 (>=60 mL/min/1.73m^2); Estimated GFR (Non-African Ame >60 (>=60 mL/min/1.73m^2); Glucose 157 mg/dL (74-106); Potassium 3.5 mmol/L (3.5-5.1); Sodium 140 mmol/L (136-145)
[2025-01-28 11:04] LABS: Estimated Average Glucose 143 mg/dL; Glycohemoglobin A1C 6.6 % (4.5-6.2)
== END 2025-01-28 10:02 | disposition home or self-care (01) ==
LOC: LAB 10:04
PROVIDERS: PCP Family Medicine; Visit Provider Family Medicine
DX: R73.03 Prediabetes (principal)
CPT/HCPCS: 36415; 80048; 83036